=== PATIENT | male | born 1955 | race Caucasian/White ===

== ENCOUNTER 2024-04-01 17:02 | Inpatient (IN) | payer MEDICARE, SELFPAY ==
[2024-04-01 12:39] VITALS: BP 137/81
[2024-04-01] MEDS: OMNIPAQUE 50 ML PO (12:44)
--- NOTE | 2024-04-01 12:44 | ED.PDOC.TRB ---
ED Provider Triage
-
Patient seen by provider in Triage?: Seen in Triage
69-year-old male on no medications presents with 2 to 3 days worth of increased abdominal pain and distention. 2 prior hernia surgeries. No vomiting or fever. Is distended in triage and tender diffusely. Labs pending ordered CT with oral and IV
contrast secondary to patient's BMI. Bladder scan shows 35 to 45 mL
[2024-04-01 12:56] LABS: % Basophils 0.1 % (0-2); % Immature Granulocytes 0.3 % (0-0.5); % Lymphocytes 6.4 % (20.5-51.1); % Neutrophils 85.2 % (42.2-75.2); Absolute Immature Granulocytes 0.1 10^3/uL (0-0.05); Absolute Lymphocytes 1.1 10^3/uL (1.2-3.4); Absolute Monocytes 1.4 10^3/uL (0.1-0.6); Hematocrit 35.4 % (39.0-52.0); Hemoglobin 12.6 g/dL (13.0-18.0); Mean Corp Hgb Conc. 35.6 g/dL (33.0-37.0); Mean Corpuscular Hgb 30.4 pg (27.0-31.0); Mean Corpuscular Volume 85.5 fL (80.0-94.0); Mean Platelet Volume 9.6 fL (7.4-10.4); Nucleated Red Blood Cells % 0 % (-); Platelet Count 378 10^3/uL (130-400); Red Blood Cell Count 4.14 10^6/uL (4.70-6.10); Red Cell Dist. Width 13.2 % (11.5-14.5); White Blood Cell Count 17.6 10^3/uL (4.8-10.8)
[2024-04-01 13:13] LABS: ALT (SGPT) 35 U/L (0-50); AST (SGOT) 42 U/L (17-59); Alkaline Phosphatase 90 U/L (38-126); Blood Urea Nitrogen 26 mg/dl (9-20); Calcium 9.4 mg/dl (8.4-10.2); Carbon Dioxide 27 mmol/L (22-30); Chloride 80 mmol/L (98-107); Glucose 154 mg/dl (70-99); Lipase 39 U/L (23-300); Potassium 4.9 mmol/L (3.5-5.1); Sodium 120 mmol/L (135-145); Total Bilirubin 1.3 mg/dl (0.2-1.3); Total Protein 6.8 g/dl (6.3-8.2); eGFR > 60.00
[2024-04-01 13:19] VITALS: BMI 17.4
--- NOTE | 2024-04-01 13:32 | ED.GENMED ---
History of Present Illness
General
Chief Complaint: Abdominal Pain
Time Seen by Provider: 04/01/24 13:05
History of Present Illness
History of Present Illness:
Patient is a 61-year-old male with history of hernia, colitis presenting to the emergency department with abdominal pain and constipation. Patient states that for the past 4 days he has been having abdominal pain that is in the epigastric region.
He has not had a bowel movement for the past 4 days that has been normal. He did have a small bowel movement this morning. No fevers or chills. No chest pain. He has been having increased belching. Decreased p.o. Some nausea but no vomiting.
No diarrhea. No history of obstructions. He does state that earlier this week he did have cough congestion and had a similar symptoms of a cold.
Past History
Past History
ED Past Medical History: Other (Ulcerative colitis ); Negative Asthma, HTN, Hypercholesterolemia or NIDDM
ED Past Surgical History: Other (Hernia)
Social History
Tobacco: Former smoker
Alcohol: None
Personal:
Living: with family
Employment: Employed
Family History
Family History: Negative Early CAD
Phy Exam
Physical Exam
Physical Exam:
GENERAL: in no acute distress
HEENT: normocephalic, extraocular movements intact, moist oral mucosa
NECK: normal inspection
RESPIRATORY: no respiratory distress, clear to auscultation bilaterally
CARDIOVASCULAR: regular rate and rhythm
ABDOMEN/: soft, distended, diffusely tender but worse in the epigastric region no rebound or guarding
EXTREMITIES: non-tender, no edema/swelling
NEUROLOGIC: awake and alert, moves all extremities
SKIN: warm
Course
Orders/Labs/Results
Orders:
Orders
04/01/24 12:41
CT Abd/pel W Iv And Oral Contr Urgent
Comment:
Reason For Exam: abdominal pain, distention
Iohexol [Omnipaque] See Protocol PO NOW STA
04/01/24 12:42
Iohexol [Omnipaque] 50 ml .ROUTE .STK-MED ONE
04/01/24 12:48
Complete Blood Count/With Diff Urgent
Comprehensive Metabolic Panel Urgent
Lipase Urgent
04/01/24 13:18
CR Abdomen - 1 View Urgent
Comment:
Reason For Exam: upright xray, r/o free air
04/01/24 14:00
0.9% Sodium Chloride 500 ml [Nss] 500 ml IV 100 mls/hr
04/01/24 14:16
Osmolality, Random Urine Urgent
Date Specimen was Collected: 04/01/24
Time Specimen was Collected: 14:14
Urine Sodium Urgent
Date Specimen was Collected: 04/01/24
Time Specimen was Collected: 14:14
04/01/24 15:18
Ondansetron Injectable [Zofran] 4 mg IV NOW STA
04/01/24 17:47
Sodium Urgent
Abnormal Lab Results
04/01/24 04/01/24
12:48 14:16
WBC 17.6 H 10^3/uL
(4.8-10.8)
RBC 4.14 L 10^6/uL
(4.70-6.10)
Hgb 12.6 L g/dL
(13.0-18.0)
Hct 35.4 L %
(39.0-52.0)
Abs Immat Gran (auto) 0.1 H 10^3/uL
(0-0.05)
Absolute Neuts (auto) 15.0 H 10^3/uL
(1.4-6.5)
Absolute Lymphs (auto) 1.1 L 10^3/uL
(1.2-3.4)
Absolute Monos (auto) 1.4 H 10^3/uL
(0.1-0.6)
Neutrophils % 85.2 H %
(42.2-75.2)
Lymphocytes % 6.4 L %
(20.5-51.1)
Sodium 120 L mmol/L
(135-145)
Chloride 80 L mmol/L
(98-107)
BUN 26 H mg/dl
(9-20)
Glucose 154 H mg/dl
(70-99)
Urine Sodium < 5 L mmol/L
(30-90)
04/01/24 12:48
Vital Signs
Initial and Last Documented VS:
Initial Vital Signs
Temp Pulse Resp BP Pulse Ox
98.6 F 119 20 137/81 98
04/01/24 12:39 04/01/24 12:39 04/01/24 12:39 04/01/24 12:39 04/01/24 12:39
Last Documented Vital Signs
Temp Pulse Resp BP Pulse Ox
98.6 F 92 16 136/79 99
04/01/24 12:39 04/01/24 14:15 04/01/24 14:15 04/01/24 14:15 04/01/24 14:15
MDM/Problems Addressed
Differential Diagnosis Includes:
Patient is a 69-year-old male with history of hernia repair, colitis presenting to the emergency department with a few days of abdominal pain and constipation. Vitals are unremarkable and exam does show a distended abdomen that is diffusely tender
but worse in the epigastric region. I am concerned about a perforated viscus versus obstruction. Could be constipation versus viral etiology. Will obtain upright x-ray. Will obtain blood work and CT scan. Will give antiemetics. I did offer
pain control however patient would like to hold off at this time
*Critical Care Note
Total Time (30-74mins, 75-104mins- exclusive of procedures): Not Applicable
Update Note
Update Note:
CMP notable for hyponatremia. Likely from dehydration though patient does state that he has been trying to drink water though not enough with the symptoms. Will start normal saline at 100 mL/h. Discussed with nephrology who is in agreement as
well as recommending obtaining urine awesome and urine sodium. Blood work does show elevated white count. X-ray per my interpretation without free air though he does have signs of small bowel obstruction. Discussed with general surgery who would
like to obtain CT scan. Will admit to hospitalist given the hyponatremia.
ED Attending Note
-
Portions of this chart may have been created with voice recognition software.� Occasional wrong word or��sound alike� substitutions may have occurred due to the inherent limitations of voice recognition software.
Discharge Plan
Departure
Patient Disposition: Admit
Date of Disposition: 04/01/24
Time of Disposition: 15:13
Presentation/result/management discussed w/ accepting MD/DO: Hospitalist
Discharge Problem:
Small bowel obstruction
Prescriptions:
No Action
multivitamin 1 EACH tablet
1 ea PO DAILY
prednisone 20 MG tablet
10 mg PO BID
Interventions
Interventions:
*Risk Screen - Suicide Last Done: 04/01/24 13:19
*General Assessment Last Done: 04/01/24 13:19
*Neglect/Abuse Screening Last Done: 04/01/24 13:19
SX-Gpcchs-Nqhbwftafj Assessment Last Done: 04/01/24 13:19
Discharge Date and Time
Print Language: GIBRALTARIAN
[2024-04-01] MEDS: NSS 500 IV (13:49)
--- NOTE | 2024-04-01 14:11 | W.CON.NEPH ---
Addendum entered and electronically signed by Nidhi De Los Santos MD 04/01/24 15:49:
please edit -pt not on prednisone for UC
Original Note:
Consultation
-
Date/Time Consultation Requested: 04/01/24 1340
Date/Time Consultation Performed: 04/01/24 1430
Requesting Provider: Malcolm Hull
Performing Provider: Nidhi Luna
Reason for Consultation: hyponatremia
Medical History
-
Chief Complaint: Abd pain
History of Present Illness:
Patient is a 61-year-old male with history of U colitis with out medications, bilat I hernia surgeries presenting to the emergency department with abdominal pain and constipation. he normally has intermittent constipation and usually resolves with
laxatives. this time it did not despite using enema yesterday. he notes decreased food intake and lost 20lbs in last 2weeks. He reports of drinking lot of liquids for constipation. Has been having abdominal pain that is in the epigastric region for
same duration with out nausea or vomiting. He has not had a bowel movement for the past 4 days and not passing flatus. No fevers or chills. No chest pain or SOB. He has been having increased belching specially when he lays down.No history of
obstructions. For his UC not seen GI for a while. Abd Xray shows SBO and his sodium is 120. He started with NS by ER. He is awaiting for CT abd today.
Past Medical History
Ulcerative colitis
Past Surgical History: Other (hernia surgery)
Social History
Tobacco: Former Smoker
Alcohol: None
Personal:
Living: With Family
Employment: Retired (worked in [employer])
Family History
Family History: Not Pertinent
Allergies / Home Medications
Allergy/AdvReac Type Severity Reaction Status Date / Time
No Known Allergies Allergy Unverified 04/01/24 12:41
�Medication �Instructions �Recorded �Confirmed �Type
multivitamin 1 ea PO DAILY 01/12/10 01/12/10 History
prednisone 20 mg tablet 10 mg PO BID 01/12/10 01/12/10 History
Review of Systems
-
all complete 12 point ROS have been inquired and found negative other than stated in HPI
All other systems: Negative unless noted
Physical Exam
Vital Signs
Vital Signs
Temp Pulse Resp BP Pulse Ox
98.6 F 119 20 137/81 98
04/01/24 12:39 04/01/24 12:39 04/01/24 12:39 04/01/24 12:39 04/01/24 12:39
Lab Results
WBC 17.6 10^3/uL (4.8-10.8) H 04/01/24 12:48
RBC 4.14 10^6/uL (4.70-6.10) L 04/01/24 12:48
Hgb 12.6 g/dL (13.0-18.0) L 04/01/24 12:48
Hct 35.4 % (39.0-52.0) L 04/01/24 12:48
Plt Count 378 10^3/uL (130-400) 04/01/24 12:48
Potassium 4.9 mmol/L (3.5-5.1) 04/01/24 12:48
Chloride 80 mmol/L (98-107) L 04/01/24 12:48
Carbon Dioxide 27 mmol/L (22-30) 04/01/24 12:48
BUN 26 mg/dl (9-20) H 04/01/24 12:48
Creatinine 0.8 mg/dL (0.7-1.3) 04/01/24 12:48
eGFR > 60.00 04/01/24 12:48
Glucose 154 mg/dl (70-99) H 04/01/24 12:48
Calcium 9.4 mg/dl (8.4-10.2) 04/01/24 12:48
Albumin 4.0 g/dl (3.5-5.0) 04/01/24 12:48
abd Xray:
IMPRESSION:
Findings compatible with small bowel obstruction. No appreciable pneumoperitoneum.
Physical Exam
General: Awake, Alert, Oriented, AOx3, No Distress, Nontoxic and Other (cachetic)
HEENT: EOMI, Anicteric, Conjunctivae Clear, Neck Supple and No JVD
Respiratory: Clear, Normal Excursion and Nonlabored Respirations
Cardiac: S1/S2 and Regular Rate/Rhythm
Breast: Deferred by me
Abdomen: Soft, Nontender and Other (no BS, distended)
Musculoskeletal: No Cyanosis and No Edema
Skin: No Rash
Neuro: Nonfocal/Grossly Intact
Psych: Mood/afflect pleasant, Insight/judgement good and Appropriate
Data Reviewed
-
Radiology: Report Reviewed by me, Discussed with Patient and Discussed with Family
Labs: Labs Reviewed by me, Discussed with Patient and Discussed with Family
Assessment/Plan
-
IMp:
SBO
Hyponatremia
prerenal azotemia
Leucocytosis
Anemia
Ulcerative colitis on chr prednisone
Plan:
A/w abd pain and constipation noted SBO
hyponatremia seem euvolemic
suspect could have high ADH state from abd pain
check U osmo and U sodium
ok for isotonic fluids for now as he is NPO
would check sodium q4hr
check TSH in am
if sodium worsens likely switch to 3%
BP stable
Await for CT abd, has sig wt loss noted
d/w pt and at bedside
[2024-04-01 14:15] VITALS: BP 136/79
[2024-04-01 14:45] LABS: Osmolality Urine 866 mOsm/kg (300-900)
[2024-04-01 15:10] LABS: Urine Sodium < 5 mmol/L (30-90)
[2024-04-01] MEDS: ZOFRAN 4 MG IV (15:22)
--- NOTE | 2024-04-01 15:50 | EDRN ---
Ambulated to BR. BM: Reports small amount soft stool.
--- NOTE | 2024-04-01 16:53 | HPS.HSE ---
Family Physician
-
Family Physician: Chavo Peng
Chief Complaint
-
Abdominal pain and constipation
History of Present Illness
Patient presents with a 2 weeks of abdominal discomfort which was intermittent with coming and going. Since Friday he started to have continuous abdominal pain and started noticed some distention.
Nausea but no vomiting. He then started to become constipated and no bowel movement in 4 days.
Initial plain x-ray of the abdomen and subsequent abdomen pelvis raises a concern about a sigmoid mass may be causing bowel obstruction.
Patient says in his lifetime he had 4 colonoscopies and the last one was 2019. He had a polyp which was removed apparently then in 2019-? Pathology of the polyp.
He has no other acute medical conditions. He takes multivitamins but no disease specific medication.
Medical History
Past Medical History
Past Medical History: Reports Other (Colitis )
Past Surgical History: Reports Other (Bilateral inguinal hernia repair)
Social History
Tobacco: Non-smoker
Personal:
Living: With Family
Family History
Family History: Not pertinent
Allergies / Home Medications
Allergies reflects when Allergies were last updated in [facility].
Home Medications with original date entered in [facility]
Allergy/Medication List:
Allergies
Allergy/AdvReac Type Severity Reaction Status Date / Time
No Known Allergies Allergy Unverified 04/01/24 12:41
Home Medications
ascorbic acid (vitamin C) 500 mg tablet (Vitamin C) 500 mg PO DAILY 04/01/24
calcium carbonate (Calcium 600) 600 mg PO DAILY 04/01/24
cholecalciferol (vitamin D3) 25 mcg (1,000 unit) tablet (Vitamin D3) 25 mcg PO DAILY 04/01/24
cyanocobalamin (vitamin B-12) 1,000 mcg tablet 1,000 mcg PO DAILY 04/01/24
magnesium oxide 400 mg PO DAILY 04/01/24
vitamin K2 90 mcg capsule 90 mcg PO DAILY 04/01/24
zinc sulfate 50 mg zinc (220 mg) tablet 50 mg PO DAILY 04/01/24
Review of Systems
-
A 12 point ROS was completed and negative except as noted: Yes
Physical Exam
Vital Signs
Vital Signs
Temp Pulse Resp BP Pulse Ox
98.6 F 92 16 136/79 99
04/01/24 12:39 04/01/24 14:15 04/01/24 14:15 04/01/24 14:15 04/01/24 14:15
Physical Exam
General: No Apparent Distress
HEENT: Moist mucous membranes
Respiratory: Clear
Cardiac: S1/S2 and Irregular Rhythm; No Tachycardia
GI: Soft, Tender (Abdominal discomfort but no rebound guarding rigidity) and Distended; No Normal Bowel Sounds
Neuro: AO x 3
Laboratory Results
-
04/01/24 12:48
Laboratory Results
Total Bilirubin 1.3 mg/dl (0.2-1.3) 04/01/24 12:48
AST 42 U/L (17-59) 04/01/24 12:48
ALT 35 U/L (0-50) 04/01/24 12:48
Alkaline Phosphatase 90 U/L (38-126) 04/01/24 12:48
Lipase 39 U/L (23-300) 04/01/24 12:48
Data Reviewed
-
CT Scan: Report Reviewed by me (ct a/p)
Lab Data: Labs Reviewed by me
Impression/Plan
-
Small bowel obstruction with sigmoid mass-admit to hospital for further evaluation. Keep NPO. Start on IV fluids. Consult colorectal surgery. Hold oral medications.
Leukocytosis -afebrile and nontoxic. But with bowel obstruction rule out translocation. Check blood cultures. Start on empirical antibiotics pending culture data and progress.
2.8 superior right hepatic lobe lesion-with sigmoid mass raises concern for hepatic mets. Would require a initially biopsy of the sigmoid mass and then a PET scan as an outpatient.
Distal esophageal stricture wall thickening-patient without any upper GI symptoms. To consider GI eval again depending on initial testing and symptoms. There Is also moderate hiatus hernia in the distal esophagus raising concern of GERD or
esophageal dysmotility. Again patient without any upper GI symptoms.
Severe hyponatremia-suspect may be related to pain. Check urine lites. Appreciate nephrology input. Continue with the IV fluids and follow-up with repeat BMP in if any worse then consider hypertonic solution.
Full code
[2024-04-01 18:39] LABS: Sodium 118 mmol/L (135-145)
[2024-04-01 19:00] VITALS: BP 133/68; BMI 16.5
[2024-04-01] MEDS: SODIUM CHLORIDE 3% 500 IV (19:50)
[2024-04-01] MEDS: NSS IV ×2 (20:46)
[2024-04-01] MEDS: ROCEPHIN 1000 MG IV (20:52)
[2024-04-01] MEDS: LOVENOX 40 MG SC (20:52)
[2024-04-01] MEDS: STERILE WATER FOR INJECTION 10 ML IV (20:52)
[2024-04-01] MEDS: FLAGYL 500 MG 100 IV (20:52)
[2024-04-01 22:26] LABS: Blood Urea Nitrogen 26 mg/dl (9-20); Carbon Dioxide 25 mmol/L (22-30); Chloride 83 mmol/L (98-107); Estimated Creatinine Clearance 92 ml/min; Glucose 119 mg/dl (70-99); Potassium 4.4 mmol/L (3.5-5.1); Sodium 118 mmol/L (135-145); eGFR > 60.00
[2024-04-01 23:21] VITALS: BP 128/63
--- NOTE | 2024-04-01 23:39 | CON.CRS ---
Medical History
-
History of Present Illness:
Patient is a 69-year-old male, denies any PMH, who presents with significant bloating and abdominal pain for 2 days. This is never happened to him before. It started with the bloating and belching 2 days ago, and developed into severe dull
abdominal pain. He denies any nausea or vomiting, SOB/CP. His last BM was this morning, but he has not been passing flatus for few days. His last colonoscopy was in 2019 at [place], which she reports demonstrated 1 benign polyp. In the ED, his WBC
was 17.6, he was initially tachycardic, but improved with fluids, afebrile. A CT scan showed a sigmoid mask associated with large bowel obstruction as well as a 2.8 cm liver lesion. An NG tube was placed.
Past Medical History
Past Medical History: None and Other
Past Surgical History: Other (UHR x 2, with mesh)
Social History
Tobacco: Former Smoker (Quit 38 years ago)
Alcohol: None
Drug: None
Personal:
Living: With Family
Family History
Family History: Other (Denies family history of CRC)
Allergies / Home Medications
Allergy/AdvReac Type Severity Reaction Status Date / Time
No Known Allergies Allergy Unverified 04/01/24 12:41
�Medication �Instructions �Recorded �Confirmed �Type
ascorbic acid (vitamin C) 500 mg 500 mg PO DAILY 04/01/24 04/01/24 History
tablet (Vitamin C)
calcium carbonate (Calcium 600) 600 mg PO DAILY 04/01/24 04/01/24 History
cholecalciferol (vitamin D3) 25 25 mcg PO DAILY 04/01/24 04/01/24 History
mcg (1,000 unit) tablet (Vitamin
D3)
cyanocobalamin (vitamin B-12) 1,000 mcg PO DAILY 04/01/24 04/01/24 History
1,000 mcg tablet
magnesium oxide 400 mg PO DAILY 04/01/24 04/01/24 History
vitamin K2 90 mcg capsule 90 mcg PO DAILY 04/01/24 04/01/24 History
zinc sulfate 50 mg zinc (220 mg) 50 mg PO DAILY 04/01/24 04/01/24 History
tablet
Review of Systems
-
All other systems: Negative unless noted
A 10 point review of systems was completed, and was negative except as per HPI.
Physical Exam
Vital Signs
Temp 97.9 F 04/01/24 23:21
Pulse 98 04/01/24 23:21
Resp Rate 18 04/01/24 23:21
Blood pressure 128/63 04/01/24 23:21
SaO2 97 04/01/24 23:21
03/31/24 04/01/24 04/02/24
06:59 06:59 06:59
Actual Weight 55.026 kg
Body Mass Index (BMI) 16.5
Lab Results / Allergies
04/01/24 12:48
04/01/24 21:57
WBC 17.6 10^3/uL (4.8-10.8) H 04/01/24 12:48
Hgb 12.6 g/dL (13.0-18.0) L 04/01/24 12:48
Hct 35.4 % (39.0-52.0) L 04/01/24 12:48
Plt Count 378 10^3/uL (130-400) 04/01/24 12:48
Abs Immat Gran (auto) 0.1 10^3/uL (0-0.05) H 04/01/24 12:48
Neutrophils % 85.2 % (42.2-75.2) H 04/01/24 12:48
Allergy/AdvReac Type Severity Reaction Status Date / Time
No Known Allergies Allergy Unverified 04/01/24 12:41
Physical Exam
General: No Apparent Distress
HEENT: Normocephalic and Atraumatic
Respiratory: Non Labored Respirations
GI: Soft, Tender (Mildly tender to palpation periumbilically, no rebound or guarding) and Distended (Moderately distended and tympanic)
Skin: Warm and Dry
Neuro: AO x 3
Data Reviewed
-
CT Scan: Image Personally Visualized and interpreted, Discussed with Physician (Dr. Jeremy Garcia), Discussed with Patient and Discussed with Family
Labs: Labs Reviewed by me, Discussed with Patient and Discussed with Family
Assessment / Plan
-
69-year-old male, denies any PMH, who presents with significant bloating and abdominal pain for 2 days. This is never happened to him before. It started with the bloating and belching 2 days ago, and developed into severe dull abdominal pain. He
denies any nausea or vomiting, SOB/CP. His last BM was this morning, but he has not been passing flatus for few days. His last colonoscopy was in 2019 at [place], which she reports demonstrated 1 benign polyp. In the ED, his WBC was 17.6, he was
initially tachycardic, but improved with fluids, afebrile. A CT scan showed a sigmoid mask associated with large bowel obstruction as well as a 2.8 cm liver lesion. An NG tube was placed.
� Large bowel obstruction due to sigmoid mass, concerning for cancer; diffuse distention proximally up to the level of the stomach
� Hemodynamically stable without signs of peritonitis, no acute surgical intervention; discussed with Dr. Garcia for possible colonic stent placement tomorrow
� If colonic stent unable to be placed, patient will require surgery for diversion
� Had lengthy discussion with patient and patient's spouse regarding the pathophysiology of large bowel obstructions; explained the risk of possible perforation, which appears lower for him due to his incompetent ileocecal valve; explained the plan
for colonic stent versus surgery; additionally, explained the need for further workup of this colon mass as this is concerning for cancer; All questions were answered and the patient was agreeable to attempt at colonic stent with possible need for
surgery if unable to place
- Once large bowel obstruction addressed, patient will need tissue diagnosis of colon mass and staging CTs/CEA if cancer
� Continue NGT with IVF
� Pain control, minimize narcotics
� Okay for DVT PPx
� Appreciate GI consult for colonic stent, plan for tomorrow
� Appreciate hospitalist
--- NOTE | 2024-04-01 23:40 | PTCARENOTE ---
Pt received from ED via stretcher. Pivoted to bed w/assist without incident. Telemetry = SR w/PACs. AAOx3, flat. Admission and assessment completed. Oriented to surroundings and plan of care discussed. Critical Na+ communicated to NETWORK DIAGNOSTIC SUPPORT SPECIALIST covering
house, electronic orders received for hypertonic IVF. Infusing via #20 RFA without complication. Unable to verify NGT placement via auscultation, NGT advanced and placement verified. Flushed per order, connected to LIWS and immediately started
draining large amount of dark brown/green contents. Call daly within reach, plan of care ongoing.
[2024-04-02] VITALS (18 sets, daily range): BP systolic 111–138; BP diastolic 49–70; BMI 16.5
[2024-04-02 02:45] LABS: Blood Urea Nitrogen 24 mg/dl (9-20); Calcium 8.8 mg/dl (8.4-10.2); Carbon Dioxide 24 mmol/L (22-30); Chloride 86 mmol/L (98-107); Estimated Creatinine Clearance 79 ml/min; Glucose 116 mg/dl (70-99); Potassium 4.4 mmol/L (3.5-5.1); Sodium 124 mmol/L (135-145); eGFR > 60.00
[2024-04-02] MEDS: NSS 1000 IV ×2 (03:50→15:17)
[2024-04-02] MEDS: FLAGYL 500 MG 100 IV ×3 (03:50→22:00)
[2024-04-02 06:23] LABS: Hematocrit 31.7 % (39.0-52.0); Hemoglobin 11.4 g/dL (13.0-18.0); Mean Corpuscular Hgb 29.7 pg (27.0-31.0); Mean Corpuscular Volume 82.6 fL (80.0-94.0); Mean Platelet Volume 10.2 fL (7.4-10.4); Platelet Count 361 10^3/uL (130-400); Red Blood Cell Count 3.84 10^6/uL (4.70-6.10); Red Cell Dist. Width 13.2 % (11.5-14.5); White Blood Cell Count 5.9 10^3/uL (4.8-10.8)
[2024-04-02 06:53] LABS: Blood Urea Nitrogen 23 mg/dl (9-20); Calcium 8.8 mg/dl (8.4-10.2); Carbon Dioxide 28 mmol/L (22-30); Chloride 86 mmol/L (98-107); Estimated Creatinine Clearance 69 ml/min; Glucose 111 mg/dl (70-99); Potassium 4.3 mmol/L (3.5-5.1); Sodium 125 mmol/L (135-145); eGFR > 60.00
[2024-04-02 07:39] LABS: Hepatitis C Antibody Negative (Negative)
[2024-04-02 08:23] LABS: APTT 28.7 Sec (23.4-35.0); INR 1.22; PT 15.2 Sec (11.4-14.6)
--- NOTE | 2024-04-02 09:56 | CON.GI ---
Consultation
-
Date/Time Consultation Requested: 04/02/2024
Date/Time Consultation Performed: 04/02/2024
Requesting Provider: Jeffrey Zhao
Performing Provider: Jeremy Garcia
Reason for Consultation: colonic obstruction
Medical History
Chief Complaint / HPI
Chief Complaint: colonic obstruction
History of Present Illness:
Patient is a 69-year-old male w/ no significant hx who presents with obstipation and abdominal pain. He started having bloating and belching for past 2 days with associated severe dull abdominal pain. No vomiting. His last colonoscopy was in 2019
at [place], which she reports demonstrated [address] scan showed a sigmoid mass associated with large bowel obstruction as well as a 2.8 cm liver lesion. An NG tube was placed.
Past Medical History
Past Medical History: None
Past Surgical History: Other
Social History
Tobacco: Former Smoker
Alcohol: None
Family History
Family History: Reviewed & Not Pertinent
Allergies / Home Medications
Allergy/AdvReac Type Severity Reaction Status Date / Time
No Known Allergies Allergy Unverified 04/01/24 12:41
�Medication �Instructions �Recorded
ascorbic acid (vitamin C) 500 mg 500 mg PO DAILY Supplement 04/01/24
tablet (Vitamin C)
calcium carbonate (Calcium 600) 600 mg PO DAILY Supplement 04/01/24
cholecalciferol (vitamin D3) 25 25 mcg PO DAILY Supplement 04/01/24
mcg (1,000 unit) tablet (Vitamin
D3)
cyanocobalamin (vitamin B-12) 1,000 mcg PO DAILY Supplement 04/01/24
1,000 mcg tablet
magnesium oxide 400 mg PO DAILY Supplement 04/01/24
vitamin K2 90 mcg capsule 90 mcg PO DAILY Supplement 04/01/24
zinc sulfate 50 mg zinc (220 mg) 50 mg PO DAILY Supplement 04/01/24
tablet
Review of Systems
Vital Signs
Temp Pulse Resp BP Pulse Ox
97.5 F 105 19 138/68 99
04/02/24 07:30 04/02/24 07:30 04/02/24 07:30 04/02/24 07:30 04/02/24 07:45
Physical Exam
Exam
General: Well Developed and Well Nourished
HEENT: Normocephalic
Respiratory: Clear
Cardiac: S1/S2
GI: Soft, Tender and Distended
Results
WBC 5.9 10^3/uL (4.8-10.8) 04/02/24 06:01
Hgb 11.4 g/dL (13.0-18.0) L 04/02/24 06:01
Hct 31.7 % (39.0-52.0) L 04/02/24 06:01
MCV 82.6 fL (80.0-94.0) 04/02/24 06:01
Plt Count 361 10^3/uL (130-400) 04/02/24 06:01
Absolute Neuts (auto) 15.0 10^3/uL (1.4-6.5) H 04/01/24 12:48
PT 15.2 Sec (11.4-14.6) H 04/02/24 07:54
INR 1.22 04/02/24 07:54
APTT 28.7 Sec (23.4-35.0) 04/02/24 07:54
Sodium 125 mmol/L (135-145) L 04/02/24 06:01
Potassium 4.3 mmol/L (3.5-5.1) 04/02/24 06:01
Chloride 86 mmol/L (98-107) L 04/02/24 06:01
Carbon Dioxide 28 mmol/L (22-30) 04/02/24 06:01
BUN 23 mg/dl (9-20) H 04/02/24 06:01
Creatinine 0.8 mg/dL (0.7-1.3) 08/30/24 06:01
Calcium 8.8 mg/dl (8.4-10.2) 04/02/24 06:01
Total Bilirubin 1.3 mg/dl (0.2-1.3) 04/01/24 12:48
AST 42 U/L (17-59) 04/01/24 12:48
ALT 35 U/L (0-50) 04/01/24 12:48
Alkaline Phosphatase 90 U/L (38-126) 04/01/24 12:48
Lipase 39 U/L (23-300) 04/01/24 12:48
Hepatitis C Antibody Negative (Negative) 04/02/24 06:01
Diagnostic Image Results:
Prior GI Procedures:
EGD:
Colonoscopy:
Assessment / Plan
-
Patient is a 69-year-old male w/ no significant hx who presents with obstipation and abdominal pain. CT scan showed a sigmoid mass associated with large bowel obstruction as well as a 2.8 cm liver lesion. An NG tube was placed.
Impression / Rec:
1. Colonic obstruction - p/w obstipation and CT shows obstructing mass in sigmoid colon with upstream dilation in small bowel. Pt has significant electrolyte derangement with hyponatremia of 118 on admission, which has improved to 125 this am.
Given the urgency of decompression, will proceed with colonoscopy and stent placement for decompression.
Total Time Spent with Patient (in minutes): 55
-
-
Thank you for consultation and allowing me to participate in the patient's care. Please call the restoration technician GI physician during the after hours with any questions or concerns.
--- NOTE | 2024-04-02 10:01 | WOUNDNOTE ---
[facility] RN NOTE: Patient visited for stoma siting. Reviewed chart and spoke to patient. He said he has lost about 20 lbs in 2 weeks. His abdomen is firm, showing no creases when laying or sitting. The rectus muscle was identified and patient was marked
x4 quadrants. Patient made aware that pouching issues may occur as topography of abdomen is likely to change after surgery. Patient also made aware that surgeon will make final determination of ostomy placement. All questions answered. Will follow
up with patient if ostomy is created.
--- NOTE | 2024-04-02 10:09 | W.PN.CRS1 ---
Today's Communication / Plan
-
npo
possible colonic stent by Dr. Jeremy Garcia today
if unable to place stent, will require OR
wound marking
Assessment/Plan
-
69-year-old male, denies any PMH, who presents with significant bloating and abdominal pain for 2 days. This is never happened to him before. It started with the bloating and belching 2 days ago, and developed into severe dull abdominal pain. He
denies any nausea or vomiting, SOB/CP. His last BM was this morning, but he has not been passing flatus for few days. His last colonoscopy was in 2019 at [place], which she reports demonstrated 1 benign polyp. In the ED, his WBC was 17.6, he was
initially tachycardic, but improved with fluids, afebrile. A CT scan showed a sigmoid mask associated with large bowel obstruction as well as a 2.8 cm liver lesion. An NG tube was placed.
� Large bowel obstruction due to sigmoid mass, concerning for cancer; diffuse distention proximally up to the level of the stomach
� Stent placement by Dr. Jeremy Garcia this morning, discussed with him regarding procedure
� If colonic stent unable to be placed, patient will require surgery for diversion - has been consented this AM
- CEA if proves to be cancer
� Continue NGT with IVF
� Pain control, minimize narcotics
� Okay for DVT PPx
- Wound RN consulted for stoma marking if he should require OR
Subjective Data
Subjective Data
Date of Service: April 02, 2024
Patient states he is not in a lot of pain. He has been losing weight. He denies nausea or vomiting.
Objective Data
-
Vital Signs
Temp Pulse Resp BP Pulse Ox
97.5 F 105 19 138/68 99
04/02/24 07:30 04/02/24 07:30 04/02/24 07:30 04/02/24 07:30 04/02/24 07:45
Intake & Output
04/01/24 04/02/24 04/03/24
06:59 06:59 06:59
Intake Total 775 / 775
Output Total 2500 / 2500
Balance -1725 / -1725
Intake:
IV fluids (Total) 545 / 545
IV piggybacks 200 / 200
Amount instilled into GI Tube (
Total)
[place] Sump
Output:
Gastrointestinal tube output ( 1899 / 1899
Total)
[place] Sump 1900 / 1900
Urine, Voided 600 / 600
Lab Results
04/02/24 06:01
04/02/24 06:01
Physical Exam
-
General: No Acute Distress and AOx3
Abdomen: Soft, Distended and Tender (mildly tender around umbilicus)
Skin: Warm and Dry
--- NOTE | 2024-04-02 15:58 | CM ---
Pt admitted for small bowel obstruction
Met with pt and his at bedside
Pt reports he lives with his in a ranch style home. One step to enter
Independent at baseline, drives
DME - none
SNF/HH - denies past hx.
Has ride home at discharge
PCP - Dr Seth Peng
Pharm - [facility]
Plan anticipate home no needs vs w/VN
[2024-04-02] MEDS: SODIUM CHLORIDE 3% 250 IV (16:50)
--- NOTE | 2024-04-02 17:58 | W.PN.HOSP.TC ---
Today's Communication/Plan
-
Diet per colorectal surgery
Currently n.p.o. with IV fluids
3% saline
Follow sodium
DC Antibiotics-? If okay with GI
Assessment / Plan
Assessment / Plan
69-year-old man With abdominal pain and constipation.
CT of the abdomen and pelvis-sigmoid mass with resultant bowel obstruction. 2.8 cm low-density lesion in the superior right hepatic lobe suspicious for hepatic metastasis. Perisigmoid nodularity-regional yomaira metastasis versus metastatic soft
tissue deposits. Small volume abdominopelvic ascites. Moderate hiatal hernia with contrast in the distal esophagus-either GERD or dysmotility. Circumferential wall thickening of the distal esophagus.
CVS: S1-S2 normal
Chest: CTA B/L
Abdomen: Soft, NT, high pitched Bowel sounds present
Extremities: No edema
# Small bowel obstruction with sigmoid mass
His last colonoscopy was in 2018 at [place]
NGT
Status post colonoscopy by Dr. Garcia-stricture in the sigmoid-biopsied and stent placed
Currently on ceftriaxone and Flagyl-can be stopped if okay with GI
Pain control
Had bowel movements now
Advancement of diet - defer to GI
# 2.8 cm superior right hepatic lobe lesion-possible metastatic lesion.
# Distal esophageal stricture/wall thickening
# Severe hyponatremia
Check serum osmolality, serum TSH and cortisol level
Urine osmolality noted high, sodium low
Sodium better 3% saline to be continued
Nephrology evaluation appreciated
# History of ulcerative colitis- Last colonoscopy was in 2019. Stopped following up at [place] as it was too far.
Discussed about the importance of colonoscopy in IBD .
# 20 lb weight loss
# Ex-smoker
# Full code
D/W at bed side
Anticipated Discharge: 24 - 48 hours
Subjective/Interval History
-
Date of Service: April 02, 2024
Objective Data
-
Labs:
Laboratory Results
04/02/24 04/02/24 04/02/24
06:01 07:54 21:00
WBC 5.9
Hgb 11.4 L
Hct 31.7 L
Plt Count 361
PT 15.2 H
INR 1.22
APTT 28.7
Sodium 125 L Pending
Potassium 4.3 Pending
Chloride 86 L Pending
Carbon Dioxide 28 Pending
BUN 23 H Pending
Creatinine 0.8 Pending
Glucose 111 H Pending
Calcium 8.8 Pending
Vital Signs:
Vital Signs
Temp Pulse Resp BP Pulse Ox
98.7 F 111 18 111/65 97
04/02/24 17:15 04/02/24 17:15 04/02/24 17:15 04/02/24 17:15 04/02/24 17:15
I&O
04/01/24 04/02/24 04/03/24
06:59 06:59 06:59
Intake Total 775 / 775
Output Total 2500 / 2500 150 / 150
Balance -1725 / -1725 -120 / -120
[2024-04-02 18:33] LABS: Osmolality Serum 262 mOsm/kg (275-300)
[2024-04-02 19:10] LABS: Cortisol, Random 38.1 ug/dl; TSH 1.04 uIU/ml (0.47-4.68)
[2024-04-02] MEDS: ROCEPHIN 1000 MG IV (22:01)
[2024-04-02] MEDS: STERILE WATER FOR INJECTION 10 ML IV (22:01)
[2024-04-02 22:18] LABS: Blood Urea Nitrogen 22 mg/dl (9-20); Calcium 8.7 mg/dl (8.4-10.2); Carbon Dioxide 29 mmol/L (22-30); Chloride 90 mmol/L (98-107); Estimated Creatinine Clearance 79 ml/min; Glucose 83 mg/dl (70-99); Potassium 3.6 mmol/L (3.5-5.1); Sodium 129 mmol/L (135-145); eGFR > 60.00
[2024-04-03 03:38] VITALS: BP 114/63
[2024-04-03] MEDS: FLAGYL 500 MG 100 IV ×3 (03:58→20:49)
[2024-04-03 08:00] VITALS: BP 120/70
--- NOTE | 2024-04-03 08:17 | W.PN.NEPH.PH ---
Today's Communication / Plan
-
3%
Assessment/Plan
-
IMp:
SBO
Hyponatremia
prerenal azotemia
Leucocytosis
Anemia
Ulcerative colitis on chr prednisone
Plan:
3%NaCl again today
serial BMP
await biopsy path
-
-
Date of Service: April 02, 2024
CC / HPI / ROS
-
Chief Complaint:
hyponatremia
History of Present Illness:
Na 129 today
s/p scope with stent/biopsy
BP stable
Review of Systems:
no CP/SOB
Labs
-
Labs:
eGFR > 60.00 04/02/24 21:55
Albumin 4.0 g/dl (3.5-5.0) 04/01/24 12:48
Physical Exam
-
Vital Signs:
Vital Signs
Temp Pulse Resp BP Pulse Ox
Selected Entries
04/03/24
03:38
Temp 98.4 F
Pulse 85
Resp Rate 17
Blood pressure 114/63
Cardiovascular:: Regular rate and rhythm
Respiratory:: Bilateral: Coarse
Lung Excursion:: Normal
Abdomen:: Nontender and Soft
Bowel Sounds:: Normal
Extremity Edema:: None: Bilateral:
[2024-04-03 09:26] LABS: Hematocrit 32.3 % (39.0-52.0); Hemoglobin 11.2 g/dL (13.0-18.0); Mean Corp Hgb Conc. 34.7 g/dL (33.0-37.0); Mean Corpuscular Hgb 30.2 pg (27.0-31.0); Mean Corpuscular Volume 87.1 fL (80.0-94.0); Mean Platelet Volume 10.6 fL (7.4-10.4); Platelet Count 361 10^3/uL (130-400); Red Blood Cell Count 3.71 10^6/uL (4.70-6.10); Red Cell Dist. Width 14.1 % (11.5-14.5); White Blood Cell Count 9.1 10^3/uL (4.8-10.8)
[2024-04-03 09:45] LABS: Blood Urea Nitrogen 24 mg/dl (9-20); Carbon Dioxide 27 mmol/L (22-30); Chloride 91 mmol/L (98-107); Estimated Creatinine Clearance 69 ml/min; Glucose 72 mg/dl (70-99); Potassium 3.6 mmol/L (3.5-5.1); Sodium 134 mmol/L (135-145); eGFR > 60.00
[2024-04-03 11:00] VITALS: BP 117/61
--- NOTE | 2024-04-03 12:47 | W.PN.GI.CBS2 ---
Today's Communication / Plan
-
NGT clamp trial, start CLD.
Assessment / Plan
-
Patient is a 69-year-old male w/ no significant hx who presents with obstipation and abdominal pain. CT scan showed a sigmoid mass associated with large bowel obstruction as well as a 2.8 cm liver lesion. An NG tube was placed.
Impression / Rec:
1. Colonic obstruction - p/w obstipation and CT shows obstructing mass in sigmoid colon with upstream dilation in small bowel. Pt has significant electrolyte derangement with hyponatremia of 118 on admission, which has improved to 125 this am.
Given the urgency of decompression, will proceed with colonoscopy and stent placement for decompression.
Patient had colonic stent placed yesterday. Bx taken but appeared malignant obstruction. Had multiple BMs overnight. He feels much better and his abdomen feels less tense. Hyponatremia improved to sodium of 134. At this point, would recommend
clamping his NG tube and start clear liquid diet. If tolerates and no vomiting occurs then NG tube can be removed tomorrow with gradual advancement of diet. GI will s/o, defer to colorectal surgery for further care.
Total Time Spent with Patient (in minutes): 35
Subjective
Subjective
Date of Service: April 03, 2024
Had Multiple BMs o/n.
Objective
Data Reviewed
Laboratory Data:
Laboratory Results
04/03/24 08:46
04/03/24 08:46
Laboratory Results
PT 15.2 Sec (11.4-14.6) H 04/02/24 07:54
INR 1.22 04/02/24 07:54
APTT 28.7 Sec (23.4-35.0) 04/02/24 07:54
Total Bilirubin 1.3 mg/dl (0.2-1.3) 04/01/24 12:48
AST 42 U/L (17-59) 04/01/24 12:48
ALT 35 U/L (0-50) 04/01/24 12:48
Alkaline Phosphatase 90 U/L (38-126) 04/01/24 12:48
Lipase 39 U/L (23-300) 04/01/24 12:48
Vital Signs and I&O:
Vital Signs
Temp Pulse Resp BP Pulse Ox
98.2 F 103 17 120/70 97
04/03/24 08:00 04/03/24 08:00 04/03/24 08:00 04/03/24 08:00 04/03/24 08:00
I&O
04/02/24 04/03/24 04/04/24
06:59 06:59 06:59
Intake Total 775 / 775 90 / 90 60 / 60
Output Total 2500 / 2500 750 / 750 450 / 450
Balance -1725 / -1725 -660 / -660 -390 / -390
[2024-04-03] MEDS: D5/0.9% SODIUM CHLORIDE 1000 IV (14:38)
--- NOTE | 2024-04-03 14:50 | W.PN.GS2 ---
Addendum entered and electronically signed by Gurpreet Kruger MD 04/03/24 15:02:
I saw and examined the patient.
The [employer]'s note was reviewed and I agree with the note.
Comment: Improved after stent with passage of flatus and BMs. Remains mildly softly distended, belly is nt. NGT with 1200cc out but taking sips and chips. Will proceed with ngt clamp trial.
Original Note:
Today's Communication / Plan
-
Clamp trial of ngt
Assessment / Plan
-
69 yo male presenting with LBO with CT demonstrating a sigmoid mass with 2.8 cm liver lesion now PPD #1 colonoscopy with stent placement and biopsy of what appeared to be a malignant obstruction (path pending). Passing stools with improvement in
symptoms since procedure.
AFVSS
Leukocytosis resolved
Hyponatremia improved
+BM's/flatus passing now
--Clamp trial as per GI with CLD
--Check CEA
Options going forward may include interval resection of primary vs (more likely) liver biopsy by IR followed by chemotherapy pending patient course
Subjective Data
-
Date of Service: April 03, 2024
Patient seen and examined at bedside with Dr. Kruger. Denies n/v. Pain and bloating improved since procedure yesterday. Passing stools/flatus.
Objective Data
-
Intake and Output
04/02/24 04/03/24 04/04/24
06:59 06:59 06:59
Intake Total 775 / 775 90 / 90 60 / 60
Output Total 2500 / 2500 750 / 750 450 / 450
Balance -1725 / -1725 -660 / -660 -390 / -390
Intake:
Oral fluids 0 / 0
IV fluids (Total) 545 / 545
IV piggybacks 200 / 200
Amount instilled into GI Tube ( 30 / 30 90 / 90 60 / 60
Total)
[place] Sump 90 / 90 60 / 60
Output:
Gastrointestinal tube output ( 1900 / 1900 750 / 750 450 / 450
Total)
[place] Sump 1900 / 1900 750 / 750 450 / 450
Urine, Voided 600 / 600
Other:
Number of approximated MODERATE 2
amounts of urine
Vital Signs
Temp Pulse Resp BP Pulse Ox
98.2 F 85 18 117/61 97
04/03/24 11:00 04/03/24 11:00 04/03/24 11:00 04/03/24 11:00 04/03/24 11:00
Lab Results
04/03/24 08:46
04/03/24 08:46
Calcium 9.0 mg/dl (8.4-10.2) 04/03/24 08:46
Total Bilirubin 1.3 mg/dl (0.2-1.3) 04/01/24 12:48
AST 42 U/L (17-59) 04/01/24 12:48
ALT 35 U/L (0-50) 04/01/24 12:48
Alkaline Phosphatase 90 U/L (38-126) 04/01/24 12:48
Total Protein 6.8 g/dl (6.3-8.2) 04/01/24 12:48
Albumin 4.0 g/dl (3.5-5.0) 04/01/24 12:48
Physical Exam
-
NAD
ABD softly distended, NT, NGT with light brown outputs
[2024-04-03 15:00] VITALS: BP 135/72
--- NOTE | 2024-04-03 15:04 | W.PN.HOSP.TC ---
Today's Communication/Plan
-
clears
Assessment / Plan
Assessment / Plan
69-year-old man With abdominal pain and constipation.
CT of the abdomen and pelvis-sigmoid mass with resultant bowel obstruction. 2.8 cm low-density lesion in the superior right hepatic lobe suspicious for hepatic metastasis. Perisigmoid nodularity-regional yomaira metastasis versus metastatic soft
tissue deposits. Small volume abdominopelvic ascites. Moderate hiatal hernia with contrast in the distal esophagus-either GERD or dysmotility. Circumferential wall thickening of the distal esophagus.
CVS: S1-S2 normal
Chest: CTA B/L
Abdomen: Soft, NT, high pitched Bowel sounds present
Extremities: No edema
# Small bowel obstruction with sigmoid mass
His last colonoscopy was in 2018 at [place]
NGT clamped
Status post colonoscopy by Dr. Garcia-stricture in the sigmoid-biopsied and stent placed
Currently on ceftriaxone and Flagyl-can be stopped if okay with GI
Pain control
Has bowel movements now
Advancement of diet - defer tosurgeon
# 2.8 cm superior right hepatic lobe lesion-possible metastatic lesion.
# Distal esophageal stricture/wall thickening
# Severe hyponatremia
Check serum osmolality, Normal TSH and cortisol level
Urine osmolality noted high, sodium low
Sodium better with 3% saline
Nephrology evaluation appreciated
# History of ulcerative colitis- Last colonoscopy was in 2019. Stopped following up at [place] as it was too far.
Discussed about the importance of colonoscopy in IBD .
# 20 lb weight loss
# Ex-smoker
# Full code
D/W at bed side
D/W GI
Anticipated Discharge: Within 24 hours
Subjective/Interval History
-
Date of Service: April 03, 2024
Objective Data
-
Labs:
Laboratory Results
04/03/24
08:46
WBC 9.1
Hgb 11.2 L
Hct 32.3 L
Plt Count 361
Sodium 134 L
Potassium 3.6
Chloride 91 L
Carbon Dioxide 27
BUN 24 H
Creatinine 0.8
Glucose 72
Calcium 9.0
Vital Signs:
Vital Signs
Temp Pulse Resp BP Pulse Ox
98.2 F 85 18 117/61 97
04/03/24 11:00 04/03/24 11:00 04/03/24 11:00 04/03/24 11:00 04/03/24 11:00
I&O
04/02/24 04/03/24 04/04/24
06:59 06:59 06:59
Intake Total 775 / 775 90 / 90 60 / 60
Output Total 2500 / 2500 750 / 750 450 / 450
Balance -1725 / -1725 -660 / -660 -390 / -390
--- NOTE | 2024-04-03 16:27 | PTCARENOTE ---
NGT ordered to be clamped. NGT clamped and pt placed on clear liquid diet. So far pt is tolerating very well. PT denies any pain, increased nausea, distention or abdominal pain. is at bedside. IVF hung and infusing without any difficulty.
Telemetry was renewed. HR bursts upt . 120 at times. Pt denies any CP SOB or palpitations
[2024-04-03 19:44] VITALS: BP 125/75
[2024-04-03] MEDS: ROCEPHIN 1000 MG IV (20:49)
[2024-04-03] MEDS: STERILE WATER FOR INJECTION 10 ML IV (20:49)
[2024-04-03 23:50] VITALS: BP 118/69
[2024-04-04 03:30] VITALS: BP 124/69
[2024-04-04] MEDS: D5/0.9% SODIUM CHLORIDE 1000 IV ×2 (04:34→17:50)
[2024-04-04] MEDS: FLAGYL 500 MG 100 IV ×3 (04:35→20:40)
[2024-04-04 07:26] LABS: Hematocrit 29.8 % (39.0-52.0); Hemoglobin 10.2 g/dL (13.0-18.0); Mean Corp Hgb Conc. 34.2 g/dL (33.0-37.0); Mean Corpuscular Hgb 29.5 pg (27.0-31.0); Mean Corpuscular Volume 86.1 fL (80.0-94.0); Mean Platelet Volume 10.6 fL (7.4-10.4); Platelet Count 338 10^3/uL (130-400); Red Blood Cell Count 3.46 10^6/uL (4.70-6.10); Red Cell Dist. Width 14.2 % (11.5-14.5); White Blood Cell Count 10.6 10^3/uL (4.8-10.8)
[2024-04-04 08:00] VITALS: BP 116/68
[2024-04-04 08:01] LABS: Blood Urea Nitrogen 17 mg/dl (9-20); Calcium 8.5 mg/dl (8.4-10.2); Carbon Dioxide 31 mmol/L (22-30); Chloride 95 mmol/L (98-107); Estimated Creatinine Clearance 92 ml/min; Glucose 87 mg/dl (70-99); Potassium 3.3 mmol/L (3.5-5.1); Sodium 136 mmol/L (135-145); eGFR > 60.00
[2024-04-04 08:45] LABS: Magnesium 2.1 mg/dl (1.6-2.3)
[2024-04-04] MEDS: KCL 160 MEQ IV (10:13)
[2024-04-04 11:31] VITALS: BP 112/62
--- NOTE | 2024-04-04 11:43 | W.PN.GS2 ---
Addendum entered and electronically signed by Gurpreet Kruger MD 04/04/24 13:53:
I saw and examined the patient.
The [employer]'s note was reviewed and I agree with the note.
Comment: Passed clamp trial, no n/v. Ab exam with mild soft distention, nt. Will dc NGT, adv to fld
Original Note:
Today's Communication / Plan
-
Advance to FLD
Assessment / Plan
-
69 yo male presenting with LBO with CT demonstrating a sigmoid mass with 2.8 cm liver lesion now PPD #2 colonoscopy with stent placement and biopsy of what appeared to be a malignant obstruction (path pending). Passing stools with improvement in
symptoms since procedure.
AFVSS
Leukocytosis resolved
Hyponatremia resolved, hypokalemia today
CEA pending
+BM's/flatus, tolerating NGT clamp trial
--D/C NGT
--Advance to FLD
Options going forward may include interval resection of primary vs (more likely) liver biopsy by IR followed by chemotherapy pending patient course
Subjective Data
-
Date of Service: April 04, 2024
Patient seen and examined at bedside. Denies n/v. Tolerated clears around clamped NGT. Passing flatus. Denies pain.
Objective Data
-
Intake and Output
04/03/24 04/04/24 04/05/24
06:59 06:59 06:59
Intake Total 90 / 90 2620 / 2620
Output Total 750 / 750 750 / 750
Balance -660 / -660 1870 / 1870
Intake:
Oral fluids 0 / 0 1140 / 1140
IV fluids (Total) 1220 / 1220
IV piggybacks 200 / 200
Amount instilled into GI Tube ( 90 / 90 60 / 60
Total)
[place] Sump 90 / 90 60 / 60
Output:
Gastrointestinal tube output ( 750 / 750 750 / 750
Total)
[place] Sump 750 / 750 750 / 750
Other:
Number of approximated MODERATE 2 1
amounts of urine
Vital Signs
Temp Pulse Resp BP Pulse Ox
97.9 F 76 18 116/68 97
04/04/24 08:00 04/04/24 08:00 04/04/24 08:00 04/04/24 08:00 04/04/24 08:00
Lab Results
04/04/24 05:53
04/04/24 05:53
Calcium 8.5 mg/dl (8.4-10.2) 04/04/24 05:53
Magnesium 2.1 mg/dl (1.6-2.3) 04/04/24 05:53
Total Bilirubin 1.3 mg/dl (0.2-1.3) 04/01/24 12:48
AST 42 U/L (17-59) 04/01/24 12:48
ALT 35 U/L (0-50) 04/01/24 12:48
Alkaline Phosphatase 90 U/L (38-126) 04/01/24 12:48
Total Protein 6.8 g/dl (6.3-8.2) 04/01/24 12:48
Albumin 4.0 g/dl (3.5-5.0) 04/01/24 12:48
Physical Exam
-
NAD
ABD softly distended, NT, NGT clamped (removed)
--- NOTE | 2024-04-04 12:39 | W.PN.HOSP.TC ---
Today's Communication/Plan
-
Full Liquids
Ensure ordered pls make sure patient takes it
NGT out
Assessment / Plan
Assessment / Plan
69-year-old man With abdominal pain and constipation.
CT of the abdomen and pelvis-sigmoid mass with resultant bowel obstruction. 2.8 cm low-density lesion in the superior right hepatic lobe suspicious for hepatic metastasis. Perisigmoid nodularity-regional yomaira metastasis versus metastatic soft
tissue deposits. Small volume abdominopelvic ascites. Moderate hiatal hernia with contrast in the distal esophagus-either GERD or dysmotility. Circumferential wall thickening of the distal esophagus.
CVS: S1-S2 normal
Chest: CTA B/L
Abdomen: Soft, NT
Extremities: No edema
# Small bowel obstruction with sigmoid mass
His last colonoscopy was in 2019 at [place]
NGT out today
Status post colonoscopy by Dr. Garcia-stricture in the sigmoid-biopsied and stent placed 04/02/2024
Currently on ceftriaxone and Flagyl-can be stopped if okay with GI
Pain control
Has bowel movements now
Advancement of diet -to full liquid diet today
Ensure ordered
# Hypokalemia-replace
# 2.8 cm superior right hepatic lobe lesion-possible metastatic lesion.
# Distal esophageal stricture/wall thickening-needs endoscopy at some point
# Severe hyponatremia
Secondary to prerenal causes
Sodium better with 3% saline
Currently on D5 normal saline. Sodium has normalized
Nephrology evaluation appreciated
# History of ulcerative colitis- Last colonoscopy was in 2019. Stopped following up at [place] as it was too far.
Discussed about the importance of colonoscopy in IBD .
# 20 lb weight loss
# Ex-smoker
# Full code
D/W at bed side
Anticipated Discharge: 24 - 48 hours
Subjective/Interval History
-
Date of Service: April 04, 2024
Objective Data
-
Labs:
Laboratory Results
04/04/24
05:53
WBC 10.6
Hgb 10.2 L
Hct 29.8 L
Plt Count 338
Sodium 136
Potassium 3.3 L
Chloride 95 L
Carbon Dioxide 31 H
BUN 17
Creatinine 0.6 L
Glucose 87
Calcium 8.5
Vital Signs:
Vital Signs
Temp Pulse Resp BP Pulse Ox
97.9 F 76 18 116/68 97
04/04/24 08:00 04/04/24 08:00 04/04/24 08:00 04/04/24 08:00 04/04/24 08:00
I&O
04/03/24 04/04/24 04/05/24
06:59 06:59 06:59
Intake Total 90 / 90 2620 / 2620
Output Total 750 / 750 750 / 750
Balance -660 / -660 1870 / 1870
--- NOTE | 2024-04-04 12:46 | W.PN.NEPH.PH ---
Today's Communication / Plan
-
Follow BMP
No more 3% or IV fluids as diet being advanced to full liquid
Assessment/Plan
-
IMp:
SBO
Hyponatremia
prerenal azotemia
Leucocytosis
Anemia
Ulcerative colitis on chr prednisone
Plan:
Sodium corrected following 3% administration
Diet advanced to full liquid
serial BMP
await biopsy path
-
-
Date of Service: April 04, 2024
CC / HPI / ROS
-
Chief Complaint:
hyponatremia
History of Present Illness:
Na 136 today
s/p scope with stent/biopsy
BP stable
Review of Systems:
no CP/SOB
Labs
-
Labs:
WBC 10.6 10^3/uL (4.8-10.8) 04/04/24 05:53
RBC 3.46 10^6/uL (4.70-6.10) L 04/04/24 05:53
Hgb 10.2 g/dL (13.0-18.0) L 04/04/24 05:53
Hct 29.8 % (39.0-52.0) L 04/04/24 05:53
Plt Count 338 10^3/uL (130-400) 04/04/24 05:53
Sodium 136 mmol/L (135-145) 04/04/24 05:53
Potassium 3.3 mmol/L (3.5-5.1) L 04/04/24 05:53
Chloride 95 mmol/L (98-107) L 04/04/24 05:53
Carbon Dioxide 31 mmol/L (22-30) H 04/04/24 05:53
BUN 17 mg/dl (9-20) 04/04/24 05:53
Creatinine 0.6 mg/dL (0.7-1.3) L 04/04/24 05:53
eGFR > 60.00 04/04/24 05:53
Glucose 87 mg/dl (70-99) 04/04/24 05:53
Calcium 8.5 mg/dl (8.4-10.2) 04/04/24 05:53
Albumin 4.0 g/dl (3.5-5.0) 04/01/24 12:48
Physical Exam
-
Vital Signs:
Vital Signs
Temp Pulse Resp BP Pulse Ox
97.9 F 76 18 116/68 97
04/04/24 08:00 04/04/24 08:00 04/04/24 08:00 04/04/24 08:00 04/04/24 08:00
Cardiovascular:: Regular rate and rhythm
Respiratory:: Bilateral: Coarse
Lung Excursion:: Normal
Abdomen:: Nontender and Soft
Bowel Sounds:: Normal
Extremity Edema:: None: Bilateral:
[2024-04-04 13:16] LABS: Iron 57 ug/dl (49-181)
[2024-04-04 13:26] LABS: Percent Saturation 31 % (20-50); Total Iron Binding Capacity 180 ug/dl (261-462)
--- NOTE | 2024-04-04 13:56 | PTCARENOTE ---
Came into room and NGT was removed by . diet advanced to full liquids and tolerating well. pt+ flatus bm q 4 hours today (yesterday was q2 hours) abd still distended + bs no tenderness. denies nausea PT very happy with ngt being out. IVF
infsing at this time
[2024-04-04 14:25] LABS: Vitamin B12 > 1000 pg/ml (239-931)
[2024-04-04 15:08] VITALS: BP 100/57
[2024-04-04 19:49] VITALS: BP 108/53
[2024-04-04] MEDS: STERILE WATER FOR INJECTION 10 ML IV (20:40)
[2024-04-04] MEDS: ROCEPHIN 1000 MG IV (20:40)
[2024-04-04 23:14] VITALS: BP 108/57
[2024-04-05] MEDS: FLAGYL 500 MG 100 IV ×3 (03:18→20:30)
[2024-04-05 03:45] VITALS: BP 105/61
[2024-04-05 07:30] VITALS: BP 103/61
--- NOTE | 2024-04-05 10:29 | VATNOTE ---
During routine assessment, +2 pitting edema noted to pt's R arm. Pt denies pain. Flushed IV with NSS, states minor pain at beginning of flush. IV discontinued, clear fluid noted to drain from IV site. Suspect IV infiltration. Heat applied to arm and
elevated on pillow. Will continue to monitor.
--- NOTE | 2024-04-05 10:33 | PTCARENOTE ---
per IV team during rounds, Shikha Sorenson RN reported that patient had +2 edema in right arm and IV infiltrated. she placed heat and elevated right arm, will continue to monitor.
--- NOTE | 2024-04-05 11:02 | W.PN.NEPH.PH ---
Today's Communication / Plan
-
Follow-up BMP
Replete potassium.
Assessment/Plan
-
IMp:
SBO
Hyponatremia
prerenal azotemia
Leucocytosis
Anemia
Ulcerative colitis on chr prednisone
Plan:
Sodium corrected following 3% administration and was 136 04/04/24
Diet advanced to full liquid
serial BMP
await biopsy path
recheck bmp in am
replete K prn
-
-
Date of Service: April 05, 2024
CC / HPI / ROS
-
Chief Complaint:
hyponatremia
History of Present Illness:
Na 136 yesterday
s/p scope with stent/biopsy
BP stable
Review of Systems:
no CP/SOB
Labs
-
Labs:
WBC 10.6 10^3/uL (4.8-10.8) 04/04/24 05:53
RBC 3.46 10^6/uL (4.70-6.10) L 04/04/24 05:53
Hgb 10.2 g/dL (13.0-18.0) L 04/04/24 05:53
Hct 29.8 % (39.0-52.0) L 04/04/24 05:53
Plt Count 338 10^3/uL (130-400) 04/04/24 05:53
Sodium 136 mmol/L (135-145) 04/04/24 05:53
Potassium 3.3 mmol/L (3.5-5.1) L 04/04/24 05:53
Chloride 95 mmol/L (98-107) L 04/04/24 05:53
Carbon Dioxide 31 mmol/L (22-30) H 04/04/24 05:53
BUN 17 mg/dl (9-20) 04/04/24 05:53
Creatinine 0.6 mg/dL (0.7-1.3) L 04/04/24 05:53
eGFR > 60.00 04/04/24 05:53
Glucose 87 mg/dl (70-99) 04/04/24 05:53
Calcium 8.5 mg/dl (8.4-10.2) 04/04/24 05:53
Albumin 4.0 g/dl (3.5-5.0) 04/01/24 12:48
Physical Exam
-
Vital Signs:
Vital Signs
Temp Pulse Resp BP Pulse Ox
98.1 F 91 16 103/61 98
04/05/24 07:30 04/05/24 07:30 04/05/24 07:30 04/05/24 07:30 04/05/24 07:30
Cardiovascular:: Regular rate and rhythm
Respiratory:: Bilateral: Coarse
Lung Excursion:: Normal
Abdomen:: Nontender and Soft
Bowel Sounds:: Normal
Extremity Edema:: None: Bilateral:
[2024-04-05 11:35] VITALS: BP 111/65
--- NOTE | 2024-04-05 11:42 | W.PN.CRS1 ---
Today's Communication / Plan
-
abdominal xrays
Assessment/Plan
-
69-year-old male, with a PMH of ulcerative colitis (on no medications) presents with significant bloating and abdominal pain for 2 days. His last colonoscopy was in 2019 at [place], which she reports demonstrated 1 benign polyp. In the ED, his WBC
was 17.6, he was initially tachycardic, but improved with fluids, afebrile. A CT scan showed a sigmoid mask associated with large bowel obstruction as well as a 2.8 cm liver lesion. An NG tube was placed and has been since removed. He is now s/p
colonic stent by GI.
04/02- stent by GI
� Pathology from biopsy pending
� Continue full liquid diet today
- Abdominal xrays ordered trend decompression
� Pain control, minimize narcotics
� Started Lovenox for DVT prophylaxis
- Possible liver biopsy in the future, surgical plan to be discussed
- On IV antibiotics per hospitalist
Subjective Data
Subjective Data
Date of Service: April 05, 2024
Patient states he is less distended. He denies abdominal pain. He tolerated fulls without difficulty. He is urinating. He denies nausea or vomiting. He has flatus and stool.
Objective Data
-
Vital Signs
Temp Pulse Resp BP Pulse Ox
98.1 F 91 16 103/61 98
04/05/24 07:30 04/05/24 07:30 04/05/24 07:30 04/05/24 07:30 04/05/24 07:30
Intake & Output
04/04/24 04/05/24 04/06/24
06:59 06:59 06:59
Intake Total 2620 / 2620 960 / 960
Output Total 750 / 750
Balance 1870 / 1870 960 / 960
Intake:
Oral fluids 1140 / 1140 720 / 720
IV fluids (Total) 1220 / 1220 240 / 240
IV piggybacks 200 / 200
Amount instilled into GI Tube ( 60 / 60
Total)
[facility] Sump 60 / 60
Output:
Gastrointestinal tube output ( 750 / 750
Total)
[facility] Sump 750 / 750
Other:
Number of approximated MODERATE 1 2
amounts of urine
Lab Results
04/04/24 05:53
04/04/24 05:53
Physical Exam
-
General: No Acute Distress and AOx3
Abdomen: Soft, Distended (mild, improving) and Non Tender
--- NOTE | 2024-04-05 12:27 | W.PN.HOSP.TC ---
Today's Communication/Plan
-
Advance diet to LR
Assessment / Plan
Assessment / Plan
69-year-old man With abdominal pain and constipation.
CT of the abdomen and pelvis-sigmoid mass with resultant bowel obstruction. 2.8 cm low-density lesion in the superior right hepatic lobe suspicious for hepatic metastasis. Perisigmoid nodularity-regional yomaira metastasis versus metastatic soft
tissue deposits. Small volume abdominopelvic ascites. Moderate hiatal hernia with contrast in the distal esophagus-either GERD or dysmotility. Circumferential wall thickening of the distal esophagus.
#Small bowel obstruction with sigmoid mass
His last colonoscopy was in 2018 at [place]
NGT out yesterday.
Status post colonoscopy by Dr. Garcia-stricture in the sigmoid-biopsied and stent placed 04/02/2024
Currently on ceftriaxone and Flagyl-can be stopped if okay with GI
Pain control
Has bowel movements now
Advancement of diet to LR
Ensure ordered
# 2.8 cm superior right hepatic lobe lesion-possible metastatic lesion.
# Distal esophageal stricture/wall thickening-needs endoscopy at some point
# Severe hyponatremia
Secondary to prerenal causes
Sodium better with 3% saline
Sodium has normalized
Nephrology evaluation appreciated
# History of ulcerative colitis- Last colonoscopy was in 2019. Stopped following up at [place] as it was too far.
Discussed about the importance of colonoscopy in IBD.
# 20 lb weight loss
# Ex-smoker
# Full code
D/W at bed side
Anticipated Discharge: > 48 hours
Subjective/Interval History
-
Date of Service: April 05, 2024
Tolerating liquid diet without nausea vomiting. No abdominal pain. Having bowel movements which he states is turning more solid now.
No fevers
Objective Data
-
Vital Signs:
Vital Signs
Temp Pulse Resp BP Pulse Ox
98.7 F 98 17 111/65 98
04/05/24 11:35 04/05/24 11:35 04/05/24 11:35 04/05/24 11:35 04/05/24 11:35
I&O
04/04/24 04/05/24 04/06/24
06:59 06:59 06:59
Intake Total 2620 / 2620 960 / 960
Output Total 750 / 750
Balance 1870 / 1870 960 / 960
Review of Systems
-
Respiratory: Denies Trouble Breathing
Cardiac: Denies Chest Pain
Neuro: Denies Dizzy
Physical Exam
-
General: No Apparent Distress
HEENT: Moist Mucous Membranes
Respiratory: Non Labored Respirations; Negative Accessory Resp Muscle Use
GI: Soft, Nontender and Nondistended
Neuro: AO x 3
Psych: Calm
[2024-04-05 15:30] VITALS: BP 103/65
[2024-04-05] MEDS: LOVENOX 40 MG SC (17:15)
--- NOTE | 2024-04-05 18:05 | PTCARENOTE ---
patient denies pain, tolerating full liquids, abd less distended today,continent of brown liquid stool in bsc. independent in room with steady gait. sat oob most of day. can become tachycardic in 150's at times even at rest. Dr. Mason was made
aware, vss, will continue to monitor.
[2024-04-05 19:25] VITALS: BP 107/63
[2024-04-05] MEDS: STERILE WATER FOR INJECTION 10 ML IV (20:30)
[2024-04-05] MEDS: ROCEPHIN 1000 MG IV (20:30)
[2024-04-05 23:52] VITALS: BP 122/74
[2024-04-06] VITALS (7 sets, daily range): BP systolic 102–116; BP diastolic 54–65
[2024-04-06] MEDS: FLAGYL 500 MG 100 IV ×3 (03:41→20:00)
--- NOTE | 2024-04-06 04:26 | PTCARENOTE ---
Pt alarming AFib on heart monitor. Assessed rhythm and it looks as if pt is going in and out of AFib. HR 70s-80s. VSS. Pt denies palpitations. Tigertexted [facility] [facility] Provider and new order received to check a serum Mg level. AM labs drawn early with
serum Mg. Will continue to monitor.
[2024-04-06 04:54] LABS: Blood Urea Nitrogen 7 mg/dl (9-20); Calcium 8.8 mg/dl (8.4-10.2); Carbon Dioxide 28 mmol/L (22-30); Chloride 98 mmol/L (98-107); Estimated Creatinine Clearance 92 ml/min; Glucose 90 mg/dl (70-99); Magnesium 1.7 mg/dl (1.6-2.3); Potassium 3.6 mmol/L (3.5-5.1); Sodium 135 mmol/L (135-145); eGFR > 60.00
[2024-04-06] MEDS: MAGNESIUM SULFATE 102 GRAMS IV (06:14)
--- NOTE | 2024-04-06 08:00 | PN.CDI ---
CDI
- -
CDI:
Physician Documentation Request
Admit Date: 04/01/24 17:02
Dear Doctor Marlon,
Please review the following and provide your response in the progress notes.
Clinical Indicators:
04/05 [employer]
#CBW: 121 lbs 5 oz BMI 16.5 underweight range, 04/01.
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
#Pt meets criteria for severe protein calorie malnutrition of chronic illness
#...with significant weight loss and mod loss subcutaneous fat (orbital),
#...severe loss muscle (temporal, buccal, clavicle).
Based on the above information and your clinical assessment, which of the following most accurately represents the patient's nutritional status?
Severe Protein Calorie Malnutrition of chronic illness
Other (please specify)
[place] Criteria ([facility] Hospitalist 2017)
2 or more criteria must be present for either
non severe or severe malnutrition
Note that the criteria differs related to the
presence of an acute or chronic illness
Chronic Illness
Energy Intake Non Severe: <75% for >1 month
Severe: <75% for >1 month
Weight Loss Non Severe: 5% over 1 month
7.5% over 3 months
10% over 6 months
20% over 1 year
Severe: >5% over 1 month
>7.5% over 3 months
>10% over 6 months
>20% over 1 year
Body Fat Non Severe: Mild Loss
Severe: Severe Loss
Muscle Mass Non Severe: Mild Loss
Severe: Severe Loss
Use of terms such as suspected, likely, concern for, or probable (associated with a specific diagnosis that is being evaluated, monitored, or treated as if it exists) are acceptable and can be coded in the inpatient setting, when documented at the
time of discharge.
Thank you,
Jocelin George RN BSN CCDS
CDI Specialist
please contact via tiger text
Please use your independent medical judgment in providing your response.
[2024-04-06 08:30] LABS: CEA 61.4 ng/ml
--- NOTE | 2024-04-06 09:10 | VATNOTE ---
Pt. with reported swelling to right arm from previous IV site. Patient offers no complaints and reports swelling improved. No swelling, redness, or drainage noted.
[2024-04-06 10:05] LABS: Hematocrit 32.3 % (39.0-52.0); Hemoglobin 11.1 g/dL (13.0-18.0); Mean Corp Hgb Conc. 34.4 g/dL (33.0-37.0); Mean Corpuscular Hgb 30.5 pg (27.0-31.0); Mean Corpuscular Volume 88.7 fL (80.0-94.0); Mean Platelet Volume 9.7 fL (7.4-10.4); Platelet Count 344 10^3/uL (130-400); Red Blood Cell Count 3.64 10^6/uL (4.70-6.10); Red Cell Dist. Width 14.3 % (11.5-14.5); White Blood Cell Count 7.6 10^3/uL (4.8-10.8)
--- NOTE | 2024-04-06 10:28 | W.PN.CRS1 ---
Today's Communication / Plan
-
as below
Assessment/Plan
-
69-year-old male, denies any PMH (admitted part-way into admission that he has a h/o UC, off meds since 2019 and not following with his previous GI at [place]), who presents with significant bloating and abdominal pain for 2 days. This is never
happened to him before. It started with the bloating and belching 2 days ago, and developed into severe dull abdominal pain. He denies any nausea or vomiting, SOB/CP. His last BM was this morning, but he has not been passing flatus for few days.
His last colonoscopy was in 2019 at [place], which she reports demonstrated 1 benign polyp. In the ED, his WBC was 17.6, he was initially tachycardic, but improved with fluids, afebrile. A CT scan showed a sigmoid mask associated with large bowel
obstruction as well as a 2.8 cm liver lesion. An NG tube was placed.
S/p successful colonic stent 22mm x9cm placed; now with significant improvment in pain and bloating
� Large bowel obstruction due to sigmoid mass in setting of UC, concerning for cancer; s/p colonic stent
-f/u path
-repeat AXR with slight/minimal improvement, some gas now at the rectosigmoid
�will complete staging
-CTAP - perisigmoid nodularity c/f LAD vs soft tissue mets, 2.8 cm liver lesion; will consult IR today for biopsy of liver lesion
-CT chest - no mets, incidental segmental PE; two visible liver lesions; will need MRI vs triple phase CT liver eventually to clarify liver lesions
-CEA 61.4
-Appreciate hem/onc consult
�Continue at fulls today
� Pain control, minimize narcotics
� Continue DVT PPx with Lovenox; will need therapeutic AC, but hold for IR biopsy
� Appreciate hospitalist
Subjective Data
Subjective Data
Date of Service: April 06, 2024
No overnight events.
Denies any pain
Denies nausea/vomiting. Tolerating fulls.
+flatus (passing 'some') +BMs (having 'some') +voiding
Pt is OOB.
Objective Data
-
Vital Signs
Temp Pulse Resp BP Pulse Ox
98.2 F 78 18 106/58 98
04/06/24 07:30 04/06/24 07:30 04/06/24 07:30 04/06/24 07:30 04/06/24 07:30
Intake & Output
04/05/24 04/06/24 04/07/24
06:59 06:59 06:59
Intake Total 960 / 960 720 / 720
Balance 960 / 960 720 / 720
Intake:
Oral fluids 720 / 720 420 / 420
IV fluids (Total) 240 / 240
IV piggybacks 300 / 300
Other:
Number of approximated MODERATE 2
amounts of urine
Number of approximated LARGE 3
amounts of urine
How many times incontinent 5
MODERATE amount urine
Lab Results
04/06/24 09:55
04/06/24 04:24
Physical Exam
-
General: No Acute Distress and AOx3
HEENT: Grossly Normal
Abdomen: Soft, Distended (Mildly to moderately distended, somewhat improved from yesterday), Non Tender, No Guarding and No Rebound
Skin: Warm and Dry
[2024-04-06 10:38] LABS: APTT 30.7 Sec (23.4-35.0)
--- NOTE | 2024-04-06 11:06 | CM ---
Patient seen at bedside. Patient stated that he plans for discharge home with no needs. [facility] provided for patient to review. Patient stated that he anticipates discharge soon. 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
supports. CM will continue to follow for discharge planning needs.
Plan; home with no needs anticipated
--- NOTE | 2024-04-06 11:23 | CON.ONC ---
Impression
Impression
History of ulcerative colitis, currently not on any medication or being followed by primary care team at [place]
New found sigmoid mass causing bowel obstruction, status post stent placement
Plan
Plan
New found sigmoid mass with resultant bowel obstruction. Status post colonic stent .Continue antibiotics and medical care per primary care team and colorectal surgery.
Low-density lesion in superior right hepatic lobe suspicious for hepatic metastasis. Pending IR guided liver biopsy. Input appreciated
Pending final staging staging with CT chest and CEA (61). Pending pathology report.
After biopsy, consider anticoagulation for PE
Patient History
History of Present Illness
Patient is a 69-year-old male with history of ulcerative colitis, currently not on any medications or following a care team, presenting to [facility] with 2 weeks of abdominal discomfort, distention and constipation. Last colonoscopy was
in 2019 at [place] which had 1 benign polyp. Initial x-rays showed sigmoid mass and 2.8 cm superior right hepatic lobe lesion. Anoscopy by Dr. Garcia completed on 04/02 showed stricture in the sigmoid. Biopsy was taken and stent was placed. Patient
currently on ceftriaxone and Flagyl. CT of the abdomen and pelvis showed sigmoid mass with resultant bowel obstruction and perisigmoid nodularity, concerning for regional yomaira metastasis versus metastatic soft tissue deposits. After placement of
stent, patient had significant number of bowel movements and symptoms improved. Per colorectal surgery, patient was educated on surgical options: Segmental colectomy versus total proctocolectomy.
Today patient states feeling improved from previous days. He reports no headaches, nausea, vomiting, constipation, chest pain, shortness of breath, abdominal distention or pain. He reports ongoing loose stools. He states he has had 20 pound
weight loss over the last few weeks. No night sweats or fevers.
Past-Medical/Surgical History
Past Medical History: Reports Other (ulcerative colitis)
Past Surgical History: Reports Other (Bilateral inguinal hernia repair)
Patient Medication
�Medication �Instructions �Recorded �Confirmed �Last Taken �Type
ascorbic acid (vitamin C) 500 mg 500 mg PO DAILY Supplement 04/01/24 04/01/24 03/31/24 History
tablet (Vitamin C)
calcium carbonate (Calcium 600) 600 mg PO DAILY Supplement 04/01/24 04/01/24 03/31/24 History
cholecalciferol (vitamin D3) 25 25 mcg PO DAILY Supplement 04/01/24 04/01/24 03/31/24 History
mcg (1,000 unit) tablet (Vitamin
D3)
cyanocobalamin (vitamin B-12) 1,000 mcg PO DAILY Supplement 04/01/24 04/01/24 03/31/24 History
1,000 mcg tablet
magnesium oxide 400 mg PO DAILY Supplement 04/01/24 04/01/24 03/31/24 History
vitamin K2 90 mcg capsule 90 mcg PO DAILY Supplement 04/01/24 04/01/24 03/31/24 History
zinc sulfate 50 mg zinc (220 mg) 50 mg PO DAILY Supplement 04/01/24 04/01/24 03/31/24 History
tablet
Active Medications
Generic Name Dose Route Start Last Admin
Trade Name Freq PRN Reason Stop Dose Admin
Acetaminophen 650 mg 04/01/24 18:58
Acetaminophen 325 Mg Tablet PO 04/29/24 18:57
Q4HPRN PRN
mild pain /fever >100.4
Ceftriaxone Sodium 1,000 mg 04/01/24 20:00 04/05/24 20:30
Ceftriaxone 1000 Mg / 10 Ml Vial IV 1,000 mg
Q24H MIRANDA Administration
Heparin Sodium 4,400 units 04/06/24 11:02
Heparin 80 Units/Kg Iv Rebolus IV 05/04/24 11:01
PRN PRN
PTT < OR = 64 seconds
Heparin Sodium 2,200 units 04/06/24 11:03
Heparin 40 Units/Kg Iv Rebolus IV 05/04/24 11:02
PRN PRN
PTT = 64.1 to 72.9 seconds
Metronidazole 100 mls @ 100 mls/hr 04/01/24 20:00 04/06/24 03:41
Flagyl 500 Mg IV 100 mls
Q8H MIRANDA Administration
Heparin Sodium 25,000 units in 250 mls @ 0 mls/hr 04/06/24 11:00
Heparin 29877 Units/250 Ml IV
PER PROTOCOL MIRANDA
Protocol
Per Protocol
Morphine Sulfate 2 mg 04/01/24 18:58
Morphine 2 Mg/Ml Syringe IV 04/15/24 18:57
Q4HPRN PRN
MODERATE PAIN
Morphine Sulfate 4 mg 04/01/24 18:58
Morphine 4 Mg/Ml Injection IV 04/15/24 18:57
Q4HPRN PRN
SEVERE PAIN
Ondansetron HCl 4 mg 04/01/24 18:58
Ondansetron 4 Mg/2 Ml Vial IV 04/29/24 18:57
Q6HPRN PRN
nausea/vomiting
Sodium Chloride 0 flush 04/01/24 20:00
Sodium Chloride 0.9% (Flush) Syringe IV 04/29/24 19:59
PER PROTOCOL MIRANDA
Sterile Water 10 ml 04/01/24 20:00 04/05/24 20:30
Sterile Water For Injection 10 Ml Vial IV 04/29/24 19:59 10 ml
Q24H MIRANDA Administration
Review of Systems
-
History Source: Patient
Constitutional: Reports Weight Loss
EENT: Reports No Symptoms
Respiratory: Reports No Symptoms
Cardiac: Reports No Symptoms
GI: Reports Diarrhea
Psych: Reports No Symptoms
Physical Exam
-
General: Comfortable, Conversant and Cachetic
Cardiology: Normal Sinus Rhythm, S1 and S2
Pulmonary: Clear
GI: Soft and Normal Bowel Sounds
Musculoskeletal: No Clubbing, No Cyanosis and No Edema
Skin: Warm and Dry
Psych: Calm
Labs
Lab Results
WBC 7.6 10^3/uL (4.8-10.8) 04/06/24 09:55
RBC 3.64 10^6/uL (4.70-6.10) L 04/06/24 09:55
Hgb 11.1 g/dL (13.0-18.0) L 04/06/24 09:55
Hct 32.3 % (39.0-52.0) L 04/06/24 09:55
MCV 88.7 fL (80.0-94.0) 04/06/24 09:55
MCH 30.5 pg (27.0-31.0) 04/06/24 09:55
MCHC 34.4 g/dL (33.0-37.0) 04/06/24 09:55
RDW 14.3 % (11.5-14.5) 04/06/24 09:55
Plt Count 344 10^3/uL (130-400) 04/06/24 09:55
MPV 9.7 fL (7.4-10.4) 04/06/24 09:55
Abs Immat Gran (auto) 0.1 10^3/uL (0-0.05) H 04/01/24 12:48
Absolute Neuts (auto) 15.0 10^3/uL (1.4-6.5) H 04/01/24 12:48
Absolute Lymphs (auto) 1.1 10^3/uL (1.2-3.4) L 04/01/24 12:48
Absolute Monos (auto) 1.4 10^3/uL (0.1-0.6) H 04/01/24 12:48
Absolute Eos (auto) 0.0 10^3/uL (0-0.7) 04/01/24 12:48
Absolute Basos (auto) 0.0 10^3/uL (0-0.2) 04/01/24 12:48
Immature Gran % 0.3 % (0-0.5) 04/01/24 12:48
Neutrophils % 85.2 % (42.2-75.2) H 04/01/24 12:48
Lymphocytes % 6.4 % (20.5-51.1) L 04/01/24 12:48
Monocytes % 8.0 % (1.7-9.3) 04/01/24 12:48
Eosinophils % 0.0 % (0-6) 04/01/24 12:48
Basophils % 0.1 % (0-2) 04/01/24 12:48
Creatinine 0.6 mg/dL (0.7-1.3) L 04/06/24 04:24
Vital Signs
Vital Signs
Temp Pulse Resp BP Pulse Ox
98.2 F 78 18 106/58 98
04/06/24 07:30 04/06/24 07:30 04/06/24 07:30 04/06/24 07:30 04/06/24 07:30
--- NOTE | 2024-04-06 12:15 | W.PN.HOSP.TC ---
Addendum entered and electronically signed by Hemal Mason MD 04/07/24 07:36:
#CBW: 121 lbs 5 oz BMI 16.5 underweight range, 04/01.
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
#Pt meets criteria for severe protein calorie malnutrition of chronic illness
#...with significant weight loss and mod loss subcutaneous fat (orbital),
#...severe loss muscle (temporal, buccal, clavicle).
Original Note:
Today's Communication/Plan
-
Start on IV heparin. Check ultrasound of the legs. Consult oncology.
Continue with liquid diet.
Await IR liver biopsy.
Assessment / Plan
Assessment / Plan
69-year-old man With abdominal pain and constipation.
CT of the abdomen and pelvis-sigmoid mass with resultant bowel obstruction. 2.8 cm low-density lesion in the superior right hepatic lobe suspicious for hepatic metastasis. Perisigmoid nodularity-regional yomaira metastasis versus metastatic soft
tissue deposits. Small volume abdominopelvic ascites. Moderate hiatal hernia with contrast in the distal esophagus-either GERD or dysmotility. Circumferential wall thickening of the distal esophagus.
#Small bowel obstruction with sigmoid mass
His last colonoscopy was in 2019 at [place]
NGT out and on full liquid diet.
Status post colonoscopy by Dr. Garcia-stricture in the sigmoid-biopsied and stent placed 04/02/2024
Currently on ceftriaxone and Flagyl-patient's on admission had a leukocytosis. His CT also showed colonic wall thickening in the sigmoid area which could be the metastatic disease itself but he also had a perisigmoidal nodularity and small volume
ascites. Resolved leukocytosis with antibiotics. Finish 7 days of antibiotic course.
Has bowel movements now
Advancement of diet per CRS
Ensure ordered
Will consult Onc for plan going forward;path pending
# 2.8 cm superior right hepatic lobe lesion-possible metastatic lesion. CRS requesting IR bx
# Distal esophageal stricture/wall thickening-needs endoscopy at some point
# Acute PE -staging CT chest with IV contrast shows no evidence of pulmonary met but incidental note is made of pulmonary embolus involving the lateral segmental branch of the right lower lobe pulmonary artery. He is asymptomatic without chest pain
or shortness of breath. Check ultrasound of the legs. Start on IV heparin for anticoagulation.
# Severe hyponatremia
Secondary to prerenal causes
Sodium better with 3% saline
Sodium has normalized
Nephrology evaluation appreciated
# History of ulcerative colitis- Last colonoscopy was in 2019. Stopped following up at [place] as it was too far.
Discussed about the importance of colonoscopy in IBD.
# 20 lb weight loss
# Ex-smoker
# Full code
D/W at bed side
Total time spent on today's encounter was 52 minutes which included time spent in counseling the patient/family regarding diagnosis and treatment plan as listed above, goals of care, and symptom management. Case was discussed with nursing staff,
specialists, and care coordinators/case management. All labs and imaging personally reviewed by me. Remainder the time spent in detailed review of previous records, lab data, imaging, and other medical provider documentation.
Anticipated Discharge: > 48 hours
Subjective/Interval History
-
Date of Service: April 06, 2024
Some crampiness with the full liquid diet but no nausea or vomiting. No abdominal pain. Having some bowel movements.
Denies any chest pain or shortness of breath.
Objective Data
-
Labs:
Laboratory Results
04/06/24 04/06/24
04:24 09:55
WBC 7.6
Hgb 11.1 L
Hct 32.3 L
Plt Count 344
APTT 30.7
Sodium 135
Potassium 3.6
Chloride 98
Carbon Dioxide 28
BUN 7 L
Creatinine 0.6 L
Glucose 90
Calcium 8.8
Vital Signs:
Vital Signs
Temp Pulse Resp BP Pulse Ox
98.0 F 94 18 102/56 99
04/06/24 11:45 04/06/24 11:45 04/06/24 11:45 04/06/24 11:45 04/06/24 11:45
I&O
04/05/24 04/06/24 04/07/24
06:59 06:59 06:59
Intake Total 960 / 960 720 / 720
Balance 960 / 960 720 / 720
Review of Systems
-
Constitutional: Denies Fever or Chills
Neuro: Denies Dizzy
Physical Exam
-
General: Comfortable
Respiratory: Clear to Auscultation and Non Labored Respirations; Negative Accessory Resp Muscle Use
Cardiac: Regular Rhythm and S1/S2; Negative Tachycardic
GI: Soft, Nontender and Distended (mild)
Musculoskeletal: No Edema
Neuro: AO x 3
Psych: Calm
Data Reviewed
-
CT Scan: Report Reviewed by me (chest CT)
Labs: Labs Reviewed by me
[2024-04-06] MEDS: HEPARIN 25000 UNITS/250 ML IV (12:50)
--- NOTE | 2024-04-06 15:30 | W.PN.NEPH.PH ---
Today's Communication / Plan
-
cont FR
Assessment/Plan
-
IMp:
SBO
Hyponatremia
prerenal azotemia
Leucocytosis
Anemia
Ulcerative colitis on chr prednisone
Plan:
Sodium stable at 135
cont FR and encourage solute intake
w/u in progress, liver biopsy tomorrow
AC forPE
will s/o, call with ?s
-
-
Date of Service: April 06, 2024
CC / HPI / ROS
-
Chief Complaint:
hyponatremia
History of Present Illness:
Na 135 today
s/p scope with stent/biopsy 04/02
BP stable
Review of Systems:
no CP/SOB
no dizziness
Labs
-
Labs:
WBC 7.6 10^3/uL (4.8-10.8) 04/06/24 09:55
RBC 3.64 10^6/uL (4.70-6.10) L 04/06/24 09:55
Hgb 11.1 g/dL (13.0-18.0) L 04/06/24 09:55
Hct 32.3 % (39.0-52.0) L 04/06/24 09:55
Plt Count 344 10^3/uL (130-400) 04/06/24 09:55
Sodium 135 mmol/L (135-145) 04/06/24 04:24
Potassium 3.6 mmol/L (3.5-5.1) 04/06/24 04:24
Chloride 98 mmol/L (98-107) 04/06/24 04:24
Carbon Dioxide 28 mmol/L (22-30) 04/06/24 04:24
BUN 7 mg/dl (9-20) L 04/06/24 04:24
Creatinine 0.6 mg/dL (0.7-1.3) L 04/06/24 04:24
eGFR > 60.00 04/06/24 04:24
Glucose 90 mg/dl (70-99) 04/06/24 04:24
Calcium 8.8 mg/dl (8.4-10.2) 04/06/24 04:24
Albumin 4.0 g/dl (3.5-5.0) 04/01/24 12:48
Physical Exam
-
Vital Signs:
Vital Signs
Temp Pulse Resp BP Pulse Ox
98.0 F 94 18 102/56 99
04/06/24 11:45 04/06/24 11:45 04/06/24 11:45 04/06/24 11:45 04/06/24 11:45
Cardiovascular:: Regular rate and rhythm
Respiratory:: Bilateral: CTA
Lung Excursion:: Normal
Abdomen:: Nontender and Soft
Extremity Edema:: None: Bilateral:
[place]rera Catheter: No
[2024-04-06] MEDS: STERILE WATER FOR INJECTION 10 ML IV (19:59)
[2024-04-06] MEDS: ROCEPHIN 1000 MG IV (19:59)
[2024-04-06] MEDS: FLUSH (NSS) 3 FLUSH IV (20:00)
[2024-04-06 20:08] LABS: APTT 30.5 Sec (23.4-35.0)
[2024-04-06] MEDS: HEPARIN 4400 UNITS IV (20:23)
[2024-04-07] MEDS: HEPARIN 4400 UNITS IV ×3 (03:12→16:20)
[2024-04-07 03:15] VITALS: BP 110/62
[2024-04-07] MEDS: FLAGYL 500 MG 100 IV ×3 (03:16→20:51)
[2024-04-07] MEDS: FLUSH (NSS) 2 FLUSH IV ×2 (03:17→20:54)
[2024-04-07 07:00] VITALS: BP 105/57
--- NOTE | 2024-04-07 09:02 | W.PN.CRS1 ---
Today's Communication / Plan
-
As below
Assessment/Plan
-
69-year-old male, denies any PMH (admitted part-way into admission that he has a h/o UC, off meds since 2019 and not following with his previous GI at [facility]), who presents with significant bloating and abdominal pain for 2 days. This is never
happened to him before. It started with the bloating and belching 2 days ago, and developed into severe dull abdominal pain. He denies any nausea or vomiting, SOB/CP. His last BM was this morning, but he has not been passing flatus for few days.
His last colonoscopy was in 2019 at [facility], which she reports demonstrated 1 benign polyp. In the ED, his WBC was 17.6, he was initially tachycardic, but improved with fluids, afebrile. A CT scan showed a sigmoid mass associated with large bowel
obstruction as well as a 2.8 cm liver lesion. An NG tube was placed.
S/p successful colonic stent 22mm x9cm placed
AFVSS
WBC 7.3, Hb 11.1
� Large bowel obstruction due to sigmoid mass in setting of UC, concerning for cancer; s/p colonic stent
-f/u path
�staging:
-CTAP - perisigmoid nodularity c/f LAD vs soft tissue mets, 2.8 cm liver lesion; plan for IR today for biopsy of liver lesion
-CT chest - no mets, incidental segmental PE; two visible liver lesions; will need MRI vs triple phase CT liver eventually to clarify liver lesions
-CEA 61.4
-Appreciate hem/onc consult
� NPO for procedure; ok for low residue afterward
� Pain control, minimize narcotics
� On hep drip, hold for IR procedure
� Appreciate hospitalist
Subjective Data
Subjective Data
Date of Service: April 07, 2024
No overnight events. Abdomen feels almost back to normal size.
Denies pain.
Denies nausea/vomiting. Currently n.p.o. for procedure.
+flatus +BMs +voiding
Pt is OOB.
Objective Data
-
Vital Signs
Temp Pulse Resp BP Pulse Ox
97.9 F 86 18 105/57 98
04/07/24 07:00 04/07/24 07:00 04/07/24 07:00 04/07/24 07:00 04/07/24 07:00
Intake & Output
04/06/24 04/07/24 04/08/24
06:59 06:59 06:59
Intake Total 720 / 720 1580 / 1580 480 / 480
Balance 720 / 720 1580 / 1580 480 / 480
Intake:
Oral fluids 420 / 420 1080 / 1080 480 / 480
IV fluids (Total) 100 / 100
IV piggybacks 300 / 300 400 / 400
Other:
Number of approximated MODERATE 3 2
amounts of urine
Number of approximated LARGE 3
amounts of urine
How many times incontinent 5
MODERATE amount urine
Lab Results
04/06/24 09:55
04/06/24 04:24
Physical Exam
-
General: No Acute Distress and AOx3
Abdomen: Soft, Distended (Mildly distended, improved from yesterday), Non Tender, No Guarding and No Rebound
Skin: Warm and Dry
[2024-04-07 09:53] LABS: APTT 31.5 Sec (23.4-35.0)
[2024-04-07] MEDS: HEPARIN 25000 UNITS/250 ML IV (10:05)
[2024-04-07 11:00] VITALS: BP 105/66
[2024-04-07] MEDS: MIRALAX 17 GRAMS PO (12:48)
--- NOTE | 2024-04-07 13:37 | W.PN.HOSP.TC ---
Today's Communication/Plan
-
Restart full liquid diet as BX is cancelled
CW IV heparin
Assessment / Plan
Assessment / Plan
69-year-old man With abdominal pain and constipation.
CT of the abdomen and pelvis-sigmoid mass with resultant bowel obstruction. 2.8 cm low-density lesion in the superior right hepatic lobe suspicious for hepatic metastasis. Perisigmoid nodularity-regional yomaira metastasis versus metastatic soft
tissue deposits. Small volume abdominopelvic ascites. Moderate hiatal hernia with contrast in the distal esophagus-either GERD or dysmotility. Circumferential wall thickening of the distal esophagus.
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
His last colonoscopy was in 2019 at [place]
NGT out and on full liquid diet.
Status post colonoscopy by Dr. Garcia-stricture in the sigmoid-biopsied and stent placed 04/02/2024
Currently on ceftriaxone and Flagyl-patient's on admission had a leukocytosis. His CT also showed colonic wall thickening in the sigmoid area which could be the metastatic disease itself but he also had a perisigmoidal nodularity and small volume
ascites. Resolved leukocytosis with antibiotics. Finish 7 days of antibiotic course.
Has bowel movements now
Advancement of diet per CRS
Ensure ordered
Appt Onc input
# 2.8 cm superior right hepatic lobe lesion-possible metastatic lesion. CRS requesting IR bx - BX cancel at is it not easily accessible per IR. Consider MR imaging -will dw Onc.
# Distal esophageal stricture/wall thickening-needs endoscopy at some point
# Acute PE -staging CT chest with IV contrast shows no evidence of pulmonary met but incidental note is made of pulmonary embolus involving the lateral segmental branch of the right lower lobe pulmonary artery. He is asymptomatic without chest pain
or shortness of breath. cw IV heparin for anticoagulation -switch to oral Eliquis once plans for dc clear.
# Acute DVT - US shows Positive occlusive thrombus within the left gastrocnemius veins, in this patient with known pulmonary embolism. CW AC.
# Severe hyponatremia
Secondary to prerenal causes
Sodium better with 3% saline
Sodium has normalized
Nephrology evaluation appreciated
# History of ulcerative colitis- Last colonoscopy was in 2019. Stopped following up at [place] as it was too far.
Discussed about the importance of colonoscopy in IBD.
# 20 lb weight loss
# Ex-smoker
# Full code
D/W CRS and Onc today
Total time spent on today's encounter was 52 minutes which included time spent in counseling the patient/family regarding diagnosis and treatment plan as listed above, goals of care, and symptom management. Case was discussed with nursing staff,
specialists, and care coordinators/case management. All labs and imaging personally reviewed by me. Remainder the time spent in detailed review of previous records, lab data, imaging, and other medical provider documentation.
Anticipated Discharge: > 48 hours
Subjective/Interval History
-
Date of Service: April 07, 2024
Voicing no specific complaints. Was n.p.o. for the liver bx which got canceled
Objective Data
-
Labs:
Laboratory Results
04/07/24 04/07/24 04/07/24
02:36 09:12 16:15
APTT 41.0 H 31.5 Pending
Vital Signs:
Vital Signs
Temp Pulse Resp BP Pulse Ox
98.0 F 93 18 105/66 98
04/07/24 11:00 04/07/24 11:00 04/07/24 11:00 04/07/24 11:00 04/07/24 11:00
I&O
04/06/24 04/07/24 04/08/24
06:59 06:59 06:59
Intake Total 720 / 720 1580 / 1580 480 / 480
Balance 720 / 720 1580 / 1580 480 / 480
Review of Systems
-
Respiratory: Denies Trouble Breathing
Cardiac: Denies Chest Pain
Abdomen/GI: Denies Abdominal Pain, Nausea or Vomiting
Physical Exam
-
General: Comfortable
Respiratory: Non Labored Respirations; Negative Accessory Resp Muscle Use
Cardiac: Regular Rhythm and S1/S2
GI: Soft, Nontender and Distended (mild)
Neuro: AO x 3
Data Reviewed
-
Labs: Labs Reviewed by me
--- NOTE | 2024-04-07 13:54 | CM ---
Patient seen at bedside. Patient on heprin and CM consulted for cost of eliquis. CM will call insurance and update patient re cost anticipated.
[2024-04-07 15:00] VITALS: BP 99/66
[2024-04-07 16:09] LABS: APTT 45.7 Sec (23.4-35.0)
--- NOTE | 2024-04-07 17:15 | VATNOTE ---
Right arm swelling reassessed. Completely resolved.
[2024-04-07 19:00] VITALS: BP 107/61
[2024-04-07] MEDS: ROCEPHIN 1000 MG IV (20:50)
[2024-04-07] MEDS: STERILE WATER FOR INJECTION 10 ML IV (20:51)
[2024-04-07 23:00] VITALS: BP 109/63
[2024-04-08] MEDS: HEPARIN 25000 UNITS/250 ML IV ×2 (00:13→14:55)
[2024-04-08] MEDS: FLAGYL 500 MG 100 IV ×2 (04:20→12:36)
[2024-04-08 05:11] LABS: Hemoglobin 9.8 g/dL (13.0-18.0); Mean Corpuscular Hgb 30.4 pg (27.0-31.0); Mean Platelet Volume 9.4 fL (7.4-10.4); Platelet Count 387 10^3/uL (130-400); Red Blood Cell Count 3.22 10^6/uL (4.70-6.10); Red Cell Dist. Width 14.1 % (11.5-14.5); White Blood Cell Count 10.2 10^3/uL (4.8-10.8)
[2024-04-08] MEDS: HEPARIN 4400 UNITS IV ×2 (05:44→17:42)
[2024-04-08 07:35] VITALS: BP 95/61
[2024-04-08] MEDS: MIRALAX 17 GRAMS PO (08:09)
--- NOTE | 2024-04-08 09:51 | W.PN.CRS1 ---
Today's Communication / Plan
-
MRI abdomen
low residue
Assessment/Plan
-
69-year-old male, denies any PMH (admitted part-way into admission that he has a h/o UC, off meds since 2019 and not following with his previous GI at [facility]), who presents with significant bloating and abdominal pain for 2 days. This is never
happened to him before. It started with the bloating and belching 2 days ago, and developed into severe dull abdominal pain. He denies any nausea or vomiting, SOB/CP. His last BM was this morning, but he has not been passing flatus for few days.
His last colonoscopy was in 2019 at [facility], which she reports demonstrated 1 benign polyp. In the ED, his WBC was 17.6, he was initially tachycardic, but improved with fluids, afebrile. A CT scan showed a sigmoid mass associated with large bowel
obstruction as well as a 2.8 cm liver lesion. An NG tube was placed.
S/p successful colonic stent 22mm x9cm placed
AFVSS
WBC 10.2, Hb 9.8
� Large bowel obstruction due to sigmoid mass in setting of UC, concerning for cancer; s/p colonic stent
-path - adenocarinoma, discussed with patient this MA
�staging:
-CTAP - perisigmoid nodularity c/f LAD vs soft tissue mets, 2.8 cm liver lesion; plan for IR today for biopsy of liver lesion
-CT chest - no mets, incidental segmental PE
-MRI abdomen for ?liver met ordered
-CEA 61.4
-Appreciate hem/onc consult
� Low residue diet
� Pain control, minimize narcotics
� On hep drip
� Appreciate hospitalist
Subjective Data
Subjective Data
Date of Service: April 08, 2024
Patient states he feels 'good'. He has no nausea or vomiting. He is less bloated. He is having soft bowel movements.
Objective Data
-
Vital Signs
Temp Pulse Resp BP Pulse Ox
98.3 F 90 18 95/61 98
04/08/24 07:35 04/08/24 07:35 04/08/24 07:35 04/08/24 07:35 04/08/24 07:35
Intake & Output
04/07/24 04/08/24 04/09/24
06:59 06:59 06:59
Intake Total 1580 / 1580 840 / 840 120 / 120
Output Total 400 / 400
Balance 1580 / 1580 440 / 440 120 / 120
Intake:
Oral fluids 1080 / 1080 840 / 840 120 / 120
IV fluids (Total) 100 / 100
IV piggybacks 400 / 400
Output:
Urine, Voided 400 / 400
Other:
Number of approximated MODERATE 3 2
amounts of urine
Number of approximated LARGE 4
amounts of urine
Number of unmeasured liquid
stools
Rectum 4
Lab Results
04/08/24 05:00
04/06/24 04:24
Physical Exam
-
General: No Acute Distress and AOx3
Abdomen: Soft, Non Distended and Non Tender
Skin: Warm and Dry
--- NOTE | 2024-04-08 09:54 | PN.CDI ---
CDI
- -
CDI:
Physician Documentation Request
Admit Date: 04/01/24 17:02
Dear Doctor Marlon,
Please review the following and provide your response in the progress notes.
Clinical Indicators:
Laboratory Tests
04/01/24 04/02/24 04/03/24
12:48 06:01 08:46
RBC 4.14 L 3.84 L 3.71 L
Hgb 12.6 L 11.4 L 11.2 L
Hct 35.4 L 31.7 L 32.3 L
04/04/24 04/06/24 04/08/24
05:53 09:55 05:00
RBC 3.46 L 3.64 L 3.22 L
Hgb 10.2 L 11.1 L 9.8 L
Hct 29.8 L 32.3 L 28.0 L
Based on the above and your clinical assessment, please clarify, which of the following is the most likely condition/diagnosis evaluated, monitored and/or treated?
Acute blood loss anemia with baseline chronic anemia (Specify type)
Anemia of chronic disease - indicate if neoplastic disease, CKD or other
Precipitous drop in hematocrit
Other(please specify)
Use of terms such as suspected, likely, concern for, or probable (associated with a specific diagnosis that is being evaluated, monitored, or treated as if it exists) are acceptable and can be coded in the inpatient setting, when documented at the
time of discharge.
Thank you,
Jocelin George RN BSN CCDS
CDI Specialist
please contact via tiger text
Please use your independent medical judgment in providing your response.
--- NOTE | 2024-04-08 10:31 | W.PN.ONC2 ---
Addendum entered and electronically signed by Alexa Leblanc MD 04/08/24 19:12:
Personally reviewed MRI showing three separate liver lesions across R dome, R lobe and L lobe.
Also has some nodularity around sigmoid concerning for peritoneal disease.
Discussed usual management of colorectal cancer including staging, NGS, treatment.
Anticipate NGS as outpt.
Liver lesions unable to be biopsied. Outpt PET, eval for other biopsiable site to verify met dz.
Gave pt and websites for NCCN and NCI online resources.
Unfortunately I doubt we are treating with curative intent but I did not have this specific conversation today.
Time spent with pt and : 40 min.
Original Note:
Today's Communication / Plan
-
New found sigmoid mass with resultant bowel obstruction. Status post colonic stent. Continue antibiotics and medical care per primary care team and colorectal surgery.
Low-density lesion in superior right hepatic lobe suspicious for hepatic metastasis. Further characterization needed for staging- pending MRI results.
Pending final staging staging with CT chest and CEA (61). Pathology report positive for adenocarcinoma, MMR proficient. Treatment options dependent on final staging of disease.
After biopsy, consider anticoagulation for PE
Impression
Impression
History of ulcerative colitis, currently not on any medication or being followed by primary care team at [facility]
New found sigmoid mass causing bowel obstruction, status post stent placement
Subjective/Objective
Chief Complaint
Oncology follow up
Subjective
Patient to have MRI today for further characterization of liver mass and staging of disease.
Vital Signs:
Vital Signs
Temp Pulse Resp BP Pulse Ox
98.3 F 90 18 95/61 98
04/08/24 07:35 04/08/24 07:35 04/08/24 07:35 04/08/24 07:35 04/08/24 07:35
Lab Results:
Laboratory Data
WBC 10.2 10^3/uL (4.8-10.8) 04/08/24 05:00
Hgb 9.8 g/dL (13.0-18.0) L 04/08/24 05:00
Plt Count 387 10^3/uL (130-400) 04/08/24 05:00
PT 15.2 Sec (11.4-14.6) H 04/02/24 07:54
INR 1.22 04/02/24 07:54
APTT 54.0 Sec (23.4-35.0) H 04/08/24 05:00
eGFR > 60.00 04/06/24 04:24
--- NOTE | 2024-04-08 10:45 | CM ---
Patient seen at bedside, patient stated that he would be able to deal with eliquis cost of 47$ per month, CM will provide coupon for Eliquis. CM will continue to follow for discharge planning needs.
Plan; home with no VN needed.
[2024-04-08 10:58] LABS: APTT 92.1 Sec (23.4-35.0)
[2024-04-08 11:44] LABS: Prealbumin (Transthyretin) 8.1 mg/dl (17.6-36.0)
--- NOTE | 2024-04-08 13:34 | W.PN.HOSP.TC ---
Today's Communication/Plan
-
Advance diet to low residue diet
Follow MRI report
DC planning
Assessment / Plan
Assessment / Plan
69-year-old man With abdominal pain and constipation.
CT of the abdomen and pelvis-sigmoid mass with resultant bowel obstruction. 2.8 cm low-density lesion in the superior right hepatic lobe suspicious for hepatic metastasis. Perisigmoid nodularity-regional yomaira metastasis versus metastatic soft
tissue deposits. Small volume abdominopelvic ascites. Moderate hiatal hernia with contrast in the distal esophagus-either GERD or dysmotility. Circumferential wall thickening of the distal esophagus.
#Small bowel obstruction with sigmoid adenocarcinoma- Path confirms adenocarcinoma
His last colonoscopy was in 2019 at [place]
NGT out and on full liquid diet.
Status post colonoscopy by Dr. Garcia-stricture in the sigmoid-biopsied and stent placed 04/02/2024
Currently on ceftriaxone and Flagyl-patient's on admission had a leukocytosis. His CT also showed colonic wall thickening in the sigmoid area which could be the metastatic disease itself but he also had a perisigmoidal nodularity and small volume
ascites. Resolved leukocytosis with antibiotics. Finish 7 days of antibiotic course.
Has bowel movements now
Advancement of diet per CRS
Ensure ordered
Appt Onc input
# 2.8 cm superior right hepatic lobe lesion-possible metastatic lesion. CRS requesting IR bx - BX cancel at is it not easily accessible per IR. MR imaging report pending.
# Distal esophageal stricture/wall thickening-needs endoscopy at some point
# Acute PE -staging CT chest with IV contrast shows no evidence of pulmonary met but incidental note is made of pulmonary embolus involving the lateral segmental branch of the right lower lobe pulmonary artery. He is asymptomatic without chest pain
or shortness of breath. cw IV heparin for anticoagulation -switch to oral Eliquis once plans for dc clear.
# Acute DVT - US shows Positive occlusive thrombus within the left gastrocnemius veins, in this patient with known pulmonary embolism. CW AC.Will switch to oral Eliquis which is not cost prohibitive on dc.
# Severe hyponatremia
Secondary to prerenal causes
Sodium better with 3% saline
Sodium has normalized
Nephrology evaluation appreciated
# History of ulcerative colitis- Last colonoscopy was in 2018. Stopped following up at [place] as it was too far.
Discussed about the importance of colonoscopy in IBD.
# 20 lb weight loss
# Ex-smoker
# Full code
Anticipated Discharge: > 48 hours
Subjective/Interval History
-
Date of Service: April 08, 2024
Back from his MRI.
Tolerating liquid diet. Having bowel movements which are looser in consistency.
No abdominal pain.
Objective Data
-
Labs:
Laboratory Results
04/08/24 04/08/24 04/08/24
05:00 10:33 16:30
WBC 10.2
Hgb 9.8 L
Hct 28.0 L
Plt Count 387
APTT 54.0 H 92.1 H Pending
Vital Signs:
Vital Signs
Temp Pulse Resp BP Pulse Ox
98.3 F 90 18 95/61 98
04/08/24 07:35 04/08/24 07:35 04/08/24 07:35 04/08/24 07:35 04/08/24 07:35
I&O
04/07/24 04/08/24 04/09/24
06:59 06:59 06:59
Intake Total 1580 / 1580 840 / 840 120 / 120
Output Total 400 / 400
Balance 1580 / 1580 440 / 440 120 / 120
Review of Systems
-
Constitutional: Denies Fever
Respiratory: Denies Trouble Breathing
Cardiac: Denies Chest Pain
Neuro: Denies Dizzy
Physical Exam
-
General: Comfortable
Respiratory: Non Labored Respirations; Negative Accessory Resp Muscle Use
Cardiac: Regular Rhythm and S1/S2
GI: Soft, Nontender, Nondistended and Normal Bowel Sounds
Neuro: AO x 3
Psych: Calm
Data Reviewed
-
Labs: Labs Reviewed by me
[2024-04-08 15:13] VITALS: BP 104/60
--- NOTE | 2024-04-08 15:26 | PTCARENOTE ---
patient denies pain, tolerated low residue diet for lunch, independent in room, vss, heparin infusing without difficulty, will continue to monitor.
[2024-04-08 17:00] LABS: APTT 50.6 Sec (23.4-35.0)
--- NOTE | 2024-04-08 18:02 | PTCARENOTE ---
Addendum entered by Haritha Diallo RN 04/08/24 19:17:
at 1643, patient's PTT 50.6. Heparin drip was stopped while he was off floor for MRI today. Notified Dr. Mason and telephone order obtained at 1738 to bolus patient with 4,400units IV (80units/kg) per protocol and to keep heparin dip infusing at
20ml/hr (2000units/her). will recheck PTT 2345, will continue to monitor.
Original Note:
at 1643, patient's PTT 50.6. Heparin drip was stopped while he was off floor for MRI today. Notified Dr. Mason and telephone order obtained at 1738 to bolus patient with 4,400units IV (80units/kg) per protocol and to keep heparin dip infusing at
20ml/hr (2000units/her). will recheck PTT 2245, will continue to monitor.
[2024-04-08] MEDS: ROCEPHIN 1000 MG IV (19:45)
[2024-04-08] MEDS: STERILE WATER FOR INJECTION 10 ML IV (19:46)
[2024-04-08] MEDS: FLAGYL 500 MG PO (21:18)
[2024-04-08 23:30] VITALS: BP 101/63
[2024-04-09 00:39] LABS: APTT 101.1 Sec (23.4-35.0)
[2024-04-09] MEDS: HEPARIN 25000 UNITS/250 ML IV (03:55)
[2024-04-09 06:49] LABS: APTT 84.7 Sec (23.4-35.0)
[2024-04-09 07:33] VITALS: BP 104/62
[2024-04-09] MEDS: FLAGYL 500 MG PO ×2 (08:58→15:40)
[2024-04-09] MEDS: MIRALAX 17 GRAMS PO (08:58)
--- NOTE | 2024-04-09 10:32 | CM ---
Patient seen at bedside. coupon provided for Eliquis and patient is for discharge home. Patient given IMM for review and patient requested to sign after reading it over with . CM will continue to follow for discharge planning needs.
Plan; home with no needs anticipated.
--- NOTE | 2024-04-09 10:48 | W.PN.HOSP.TC ---
Addendum entered and electronically signed by Hemal Mason MD 04/13/24 12:07:
Normocytic anemia noted - iron studies suggest anemia of chronic disease suspect sec to malignancy
Addendum entered and electronically signed by Hemal Mason MD 04/09/24 16:19:
DW CRS and Onc - ok for dc from their end and follow as OP with them.
Total time of dc 32 min
Original Note:
Today's Communication/Plan
-
repeat H&H today.
DC planning.
Assessment / Plan
Assessment / Plan
69-year-old man With abdominal pain and constipation.
CT of the abdomen and pelvis-sigmoid mass with resultant bowel obstruction. 2.8 cm low-density lesion in the superior right hepatic lobe suspicious for hepatic metastasis. Perisigmoid nodularity-regional yomaira metastasis versus metastatic soft
tissue deposits. Small volume abdominopelvic ascites. Moderate hiatal hernia with contrast in the distal esophagus-either GERD or dysmotility. Circumferential wall thickening of the distal esophagus.
#Small bowel obstruction with sigmoid adenocarcinoma- Path confirms adenocarcinoma
His last colonoscopy was in 2019 at [place]
NGT out and on solid diet;having BM
Status post colonoscopy by Dr. Garcia-stricture in the sigmoid-biopsied and stent placed 04/02/2024
Currently on ceftriaxone and Flagyl-patient's on admission had a leukocytosis. His CT also showed colonic wall thickening in the sigmoid area which could be the metastatic disease itself but he also had a perisigmoidal nodularity and small volume
ascites. Resolved leukocytosis with antibiotics. Finished 7 days of antibiotic course.
# 2.8 cm superior right hepatic lobe lesion-possible metastatic lesion. CRS requesting IR bx - BX cancel at is it not easily accessible per IR. MR imaging report noted. No plans for BX. PET as OP
# Distal esophageal stricture/wall thickening-needs endoscopy at some point
# Acute PE -staging CT chest with IV contrast shows no evidence of pulmonary met but incidental note is made of pulmonary embolus involving the lateral segmental branch of the right lower lobe pulmonary artery. He is asymptomatic without chest pain
or shortness of breath. cw IV heparin for anticoagulation -switch to oral Eliquis today as no plans for intervention. Slow H&H drop noted without obvious external bleeding. Repeat H&H today and if stable will switch to Eliquis.
# Acute DVT - US shows Positive occlusive thrombus within the left gastrocnemius veins, in this patient with known pulmonary embolism. CW AC.Will switch to oral Eliquis which is not cost prohibitive on dc.
# Severe hyponatremia
Secondary to prerenal causes
Sodium better with 3% saline
Sodium has normalized
Nephrology evaluation appreciated
# History of ulcerative colitis- Last colonoscopy was in 2019. Stopped following up at [place] as it was too far.
Discussed about the importance of colonoscopy in IBD.
# 20 lb weight loss
# Ex-smoker
# Full code
Will discuss with involved subspecialists and if no plan for any further interventions will switch to oral Eliquis after H&H checked today and discharge patient home.
Total time of discharge 35 minutes
Anticipated Discharge: Today
Subjective/Interval History
-
Date of Service: April 09, 2024
Tolerating solid diet without any abdominal pain, nausea or vomiting.
Voicing no specific complaints.
Denies any lightheadedness or dizziness.
Objective Data
-
Labs:
Laboratory Results
04/08/24 04/09/24
23:34 06:28
APTT 101.1 H 84.7 H
Vital Signs:
Vital Signs
Temp Pulse Resp BP Pulse Ox
98.4 F 88 17 104/62 98
04/09/24 07:33 04/09/24 07:33 04/09/24 07:33 04/09/24 07:33 04/09/24 08:15
I&O
04/08/24 04/09/24 04/10/24
06:59 06:59 06:59
Intake Total 840 / 840 1400 / 1400
Output Total 400 / 400
Balance 440 / 440 1400 / 1400
Review of Systems
-
Constitutional: Denies Fever
Respiratory: Denies Trouble Breathing
Cardiac: Denies Chest Pain
Physical Exam
-
General: No Apparent Distress
HEENT: Moist Mucous Membranes
Respiratory: Clear to Auscultation
Cardiac: Regular Rhythm and S1/S2
GI: Soft, Nontender, Nondistended and Normal Bowel Sounds
Neuro: AO x 3
--- NOTE | 2024-04-09 11:32 | W.PN.CRS1 ---
Today's Communication / Plan
-
Dispo per primary team
Follow-up with colorectal surgery as an outpatient
Assessment/Plan
-
69-year-old male, denies any PMH (admitted part-way into admission that he has a h/o UC, off meds since 2019 and not following with his previous GI at [facility]), who presents with significant bloating and abdominal pain for 2 days. This is never
happened to him before. It started with the bloating and belching 2 days ago, and developed into severe dull abdominal pain. He denies any nausea or vomiting, SOB/CP. His last BM was this morning, but he has not been passing flatus for few days.
His last colonoscopy was in 2019 at [facility], which she reports demonstrated 1 benign polyp. In the ED, his WBC was 17.6, he was initially tachycardic, but improved with fluids, afebrile. A CT scan showed a sigmoid mass associated with large bowel
obstruction as well as a 2.8 cm liver lesion. An NG tube was placed.
S/p successful colonic stent 22mm x9cm placed
AFVSS
Labs pending
� Large bowel obstruction due to sigmoid mass in setting of UC, concerning for cancer; s/p colonic stent
-path - adenocarinoma, discussed with patient this MA
�staging:
-CTAP - perisigmoid nodularity c/f LAD vs soft tissue mets, 2.8 cm liver lesion; plan for IR today for biopsy of liver lesion
-CT chest - no mets, incidental segmental PE
-MRI abdomen shows 3 liver mets
-CEA 61.4
-Appreciate hem/onc consult
� Low residue diet
� Pain control, minimize narcotics
� On hep drip
� Appreciate hospitalist
-No plans for surgery during this admission. Okay for discharge from our perspective medically cleared. Will follow-up in our office in a few weeks. Follow-up with hematology oncology as an outpatient.
Subjective Data
Subjective Data
Date of Service: April 09, 2024
Patient states he is having bowel movements. His bowel softer. His abdomen is nondistended. He has no abdominal pain.
Objective Data
-
Vital Signs
Temp Pulse Resp BP Pulse Ox
98.4 F 88 17 104/62 98
04/09/24 07:33 04/09/24 07:33 04/09/24 07:33 04/09/24 07:33 04/09/24 08:15
Intake & Output
04/08/24 04/09/24 04/10/24
06:59 06:59 06:59
Intake Total 840 / 840 1400 / 1400
Output Total 400 / 400
Balance 440 / 440 1400 / 1400
Intake:
Oral fluids 840 / 840 840 / 840
IV piggybacks 560 / 560
Output:
Urine, Voided 400 / 400
Other:
Number of approximated MODERATE 2 3
amounts of urine
Number of approximated LARGE 2
amounts of urine
Number of unmeasured liquid
stools
Rectum 4
Lab Results
04/06/24 04:24
Physical Exam
-
General: No Acute Distress and AOx3
Abdomen: Soft, Non Distended and Non Tender
Skin: Warm and Dry
[2024-04-09 11:35] LABS: Hemoglobin 10.6 g/dL (13.0-18.0); Mean Corp Hgb Conc. 34.2 g/dL (33.0-37.0); Mean Corpuscular Hgb 30.4 pg (27.0-31.0); Mean Corpuscular Volume 88.8 fL (80.0-94.0); Mean Platelet Volume 10.2 fL (7.4-10.4); Platelet Count 468 10^3/uL (130-400); Red Blood Cell Count 3.49 10^6/uL (4.70-6.10); Red Cell Dist. Width 14.9 % (11.5-14.5); White Blood Cell Count 9.6 10^3/uL (4.8-10.8)
[2024-04-09 15:29] VITALS: BP 111/67
--- NOTE | 2024-04-09 16:17 | W.DS.TRANS ---
DC Summary - Physician General Internal Medicine
-
Discharge Instructions:
Discharge Diagnosis/Procedures Colon cancer with obstructing sigmoid mass
status post colon stent; DVT, right lower lobe
PE, liver lesions.
Diet Low Residue
Activity As tolerated
Driving Restrictions Not until seen by your Dr
Bathing Restrictions None
Instructions:
Stand-Alone Forms:
Changes to Home Medications: Yes
Discharge Medications:
DC Medications w/original date entered in Medicine in Practice
ascorbic acid (vitamin C) 500 mg tablet (Vitamin C) 500 mg PO DAILY Supplement 04/01/24
calcium carbonate (Calcium 600) 600 mg PO DAILY Supplement 04/01/24
cholecalciferol (vitamin D3) 25 mcg (1,000 unit) tablet (Vitamin D3) 25 mcg PO DAILY Supplement 04/01/24
cyanocobalamin (vitamin B-12) 1,000 mcg tablet 1,000 mcg PO DAILY Supplement 04/01/24
magnesium oxide 400 mg PO DAILY Supplement 04/01/24
zinc sulfate 50 mg zinc (220 mg) tablet 50 mg PO DAILY Supplement 04/01/24
acetaminophen 325 mg tablet 650 mg (2 x 325 mg) PO Q4HPRN PRN mild pain #1 tab 04/09/24
apixaban 5 mg tablet (Eliquis) 5 mg PO BID #72 tabs 04/09/24
Home Medication Changes
New -Eliquis
Pending Results: No
[2024-04-09] MEDS: ELIQUIS 10 MG PO (17:49)
== END 2024-04-09 18:05 | disposition home or self-care (01) | DRG 374 ==
LOC: 3 WEST ACU 17:02
PROVIDERS: Nurse Practitioner Family; Physician Assistant; Registered Nurse; Specialist; ADMITTING PHYSICIAN Internal Medicine; CONSULT PHYSICIAN Internal Medicine; CONSULT PHYSICIAN Internal Medicine Hematology & Oncology; CONSULT PHYSICIAN Surgery; EMERGENCY PHYSICIAN Student in an Organized Health Care Education/Training Program; FAMILY PHYSICIAN Family Medicine; OTHER PHYSICIAN Internal Medicine Gastroenterology
PROC: 0D7E8DZ Dilation of Large Intestine with Intraluminal Device, Via Natural or Artificial Opening Endoscopic (ICD-10-PCS; 2024-04-02)
PROC: 0DBN8ZX Excision of Sigmoid Colon, Via Natural or Artificial Opening Endoscopic, Diagnostic (ICD-10-PCS; 2024-04-02)
DX: C18.9 Malignant neoplasm of colon, unspecified (principal); I26.99 Other pulmonary embolism without acute cor pulmonale; K56.699 Other intestinal obstruction unspecified as to partial versus complete obstruction; E87.1 Hypo-osmolality and hyponatremia; R18.8 Other ascites; C78.7 Secondary malignant neoplasm of liver and intrahepatic bile duct; Z87.891 Personal history of nicotine dependence; K64.9 Unspecified hemorrhoids
CPT/HCPCS: 88305; 71260; 74018; 74019; 74177; 74183; 76000; 80048; 80053; 82378; 82533; 82607; 82728; 83540; 83550; 83690; 83735; 83930; 83935; 84134; 84295; 84300; 84443; 85025; 85027; 85610; 85730; 86140; 86803; 86850; 86900; 86901; 87040; 88342; 93005; 93970; 96374; 99285; A9575; C1769; C1876; Q9967

== ENCOUNTER 2024-05-12 06:30 | Day surgery (SDC) | payer MEDICARE, SELFPAY ==
[2024-05-12] VITALS (13 sets, daily range): BP systolic 91–113; BP diastolic 50–64; BMI 15.5
[2024-05-12] MEDS: NORMOSOL-R/PLASMALYTE-A 1000 IV (12:40)
[2024-05-12] MEDS: TYLENOL 1000 MG PO (12:40)
--- NOTE | 2024-05-12 15:30 | W.IMMPOSTOP ---
Surgical Immed Post Op Note
-
Primary Surgeon: Jeffrey Zhao MD
Assisting Surgeon: None
Pre-op Diagnosis: Stage IV colon cancer
Post-op Diagnosis: Stage IV colon cancer
Procedure Performed: Left subclavian Mediport insertion
Anesthesia Type: Sedation with local
Specimen / Cultures: None
Estimated Blood Loss: 10 mL
Complications: None
Operative Findings: Tip of port catheter at cavoatrial junction with good withdrawal of blood and easy flush
--- NOTE | 2024-05-12 15:33 | OR.RPT ---
Operative Report
Operative Report
DATE OF OPERATION: 05/12/2024
SURGEON: Jeffrey Zhao MD
PREOPERATIVE DIAGNOSIS: Stage 4 colon cancer
POSTOPERATIVE DIAGNOSIS: Stage 4 colon cancer
OPERATION: Left subclavian Mediport insertion
ASSISTANTS:
1. None
ANESTHESIA: MAC w/ local
ESTIMATED BLOOD LOSS: 10 mL
FINDINGS:
1. After placement, the tip of port catheter visualized at level of the cavoatrial junction on fluoroscopy
2. Once sutured in position, port tested with Germain needle and there was good withdrawal of blood and instillation of heparinized saline without resistance
SPECIMENS: None
DRAINS: None
COMPLICATIONS: No immediate complications.
INDICATIONS: The patient is a 69-year-old male with stage 4 colon cancer. Infusional chemotherapy was recommended. Therefore, I recommended port placement. The operation was discussed with the patient in detail including risks and benefits. Risks
discussed included, but are not limited to, bleeding, infection, pneumothorax, post-operative malposition or movement of catheter, need for second surgery, DVT/PE, and anesthetic risks. The patient understood and agreed to proceed. The consent was
signed and placed in the chart.
PROCEDURE: Patient was taken to the operating room and placed on the operating table in supine position. Sequential compression devices were placed bilaterally. Sedation was commenced without complication. Bilateral arms were tucked and the head
was tilted toward the right. The left neck and chest wall area were prepped and draped in a sterile fashion. A time-out was then performed verifying the correct patient, procedure, operative site, positioning, and special equipment.
The patient was then placed in Trendelenburg position. Local anesthetic consisting of 1% lidocaine with epinephrine was used to numb the skin and soft tissue near the angle of the left clavicle. Then using bony landmarks as a guide, I passed the
needle with 10mL syringe under the left collar bone in the direction of the sternal notch while simultaneously aspirating. On the first pass, good venous return was noted indicating that I had accessed the left subclavian vein. Under fluoroscopic
guidance a guidewire was passed through the needle into the patient down to the superior vena cava. This went smoothly.
The needle was removed over the guidewire and a skin opening was enlarged with an 11 blade scalpel. Next, I advanced the dilator and peel-away sheath together over the guidewire into the patient. This went smoothly as well. Next, the guidewire and
inner dilator were removed leaving the outer sheath in place. I advanced the white tubing through the outer sheath into the patient under fluoroscopic guidance to the superior vena cava near the right atrium. Next, the outer sheath was peeled away
while maintaining the white tubing in place.
I injected more 1% lidocaine with epinephrine into the planned subcutaneous port pocket. Using a 15 blade scalpel, I made a 4cm incision over the chest wall. A subcutaneous pocket was created inferiorly to the incision with a combination of Bovie
electrocautery and blunt dissection. There was good hemostasis. The white tubing was connected to the tunneling device and brought through a newly created tunnel to the pocket area, taking care to avoid kinking of the tube. The white tubing was
trimmed, connected to the the port reservoir and secured with the locking mechanism. The port reservoir was accessed with good venous return and flushed with heparinized saline. One last round of fluoroscopy was performed. The tip of the white
tubing was at the level of the superior vena cava and there was no kink in the tubing.
The reservoir was then secured to the chest wall within the pocket with two 3-0 Prolene stitches. The subcutaneous layer was closed with deep dermal interrupted 3-0 Vicryl and the skin was closed with a running subcuticular 4-0 Vicryl. The remaining
local was injected around the subcutaneous pocket, port incision and stab incision. Dermabond was used to dress the port incision and stab incision.
At this point, the procedure was complete. All sponge, needle and instrument counts were correct. The patient tolerated the procedure well and was transferred to the recovery room in stable condition. A portable chest x-ray was ordered in recovery
to confirm port position and rule-out pneumothorax.
DICTATED BY: Jeffrey Zhao MD
== END 2024-05-12 18:18 | disposition home or self-care (01) ==
LOC: SDS 06:30
PROVIDERS: ATTENDING PHYSICIAN Surgery
DX: C18.9 Malignant neoplasm of colon, unspecified (principal)
CPT/HCPCS: 36561; 71045; 76000; C1788

== ENCOUNTER → 2024-07-30 16:40 | Outpatient (REF) | payer MEDICARE, SELFPAY ==
[2024-07-30 14:36] LABS: Mean Corp Hgb Conc. 32.3 g/dL (33.0-37.0); Mean Corpuscular Hgb 30.4 pg (27.0-31.0); Mean Corpuscular Volume 94.2 fL (80.0-94.0); Mean Platelet Volume 9.4 fL (7.4-10.4); Platelet Count 350 10^3/uL (130-400); Red Blood Cell Count 3.29 10^6/uL (4.70-6.10); Red Cell Dist. Width 21.5 % (11.5-14.5); White Blood Cell Count 4.6 10^3/uL (4.8-10.8)
[2024-07-30 16:01] LABS: Absolute Neutrophils -Man Diff 2.1 10^3/uL (1.4-6.5); Band Neutrophils 0 % (0-3); Lymphocytes 23 % (20-51); Monocytes 31 % (2-9); Segmented Neutrophils 46 % (42-75)
[2024-07-30 16:02] LABS: Normal RBC Morphology No; Platelets Checked Yes; Total Cells Counted 100
[2024-07-30 16:04] LABS: Anisocytosis 2+; Macrocytosis 2+; Poikilocytosis 1+; Target Cells 1+
[2024-07-30 16:05] LABS: Acanthocytes Slight; Burr Cells 1+
== END ==
LOC: OIDL 16:40
PROVIDERS: ATTENDING PHYSICIAN Internal Medicine Hematology & Oncology
DX: C18.7 Malignant neoplasm of sigmoid colon (principal)
CPT/HCPCS: 85025

== ENCOUNTER → 2024-10-08 16:18 | Outpatient (REF) | payer MEDICARE, SELFPAY ==
[2024-10-08 14:41] LABS: % Basophils 0.1 % (0-2); % Eosinophils 0.4 % (0-6); % Immature Granulocytes 11.5 % (0-0.5); % Monocytes 0.9 % (1.7-9.3); % Neutrophils 68.1 % (42.2-75.2); Absolute Eosinophils 0.1 10^3/uL (0-0.7); Absolute Immature Granulocytes 2.2 10^3/uL (0-0.05); Absolute Lymphocytes 3.6 10^3/uL (1.2-3.4); Absolute Monocytes 0.2 10^3/uL (0.1-0.6); Absolute Neutrophils 12.8 10^3/uL (1.4-6.5); Hematocrit 24.7 % (39.0-52.0); Hemoglobin 7.8 g/dL (13.0-18.0); Mean Corp Hgb Conc. 31.6 g/dL (33.0-37.0); Mean Corpuscular Hgb 28.7 pg (27.0-31.0); Mean Corpuscular Volume 90.8 fL (80.0-94.0); Mean Platelet Volume 8.8 fL (7.4-10.4); Platelet Count 413 10^3/uL (130-400); Red Blood Cell Count 2.72 10^6/uL (4.70-6.10); Red Cell Dist. Width 16.9 % (11.5-14.5); White Blood Cell Count 18.8 10^3/uL (4.8-10.8)
== END ==
LOC: OIDL 16:18
PROVIDERS: ATTENDING PHYSICIAN Nurse Practitioner Primary Care
DX: C18.7 Malignant neoplasm of sigmoid colon (principal)
CPT/HCPCS: 85025

== ENCOUNTER → 2024-10-25 12:42 | Outpatient (REF) | payer MEDICARE, SELFPAY ==
[2024-10-25 13:04] LABS: % Basophils 0.2 % (0-2); % Eosinophils 0.7 % (0-6); % Immature Granulocytes 2.5 % (0-0.5); % Lymphocytes 15.6 % (20.5-51.1); % Monocytes 12.5 % (1.7-9.3); % Neutrophils 68.5 % (42.2-75.2); Absolute Eosinophils 0.1 10^3/uL (0-0.7); Absolute Immature Granulocytes 0.4 10^3/uL (0-0.05); Absolute Lymphocytes 2.5 10^3/uL (1.2-3.4); Absolute Neutrophils 10.9 10^3/uL (1.4-6.5); Hematocrit 25.8 % (39.0-52.0); Hemoglobin 8.3 g/dL (13.0-18.0); Mean Corp Hgb Conc. 32.2 g/dL (33.0-37.0); Mean Corpuscular Hgb 28.3 pg (27.0-31.0); Mean Corpuscular Volume 88.1 fL (80.0-94.0); Mean Platelet Volume 8.3 fL (7.4-10.4); Platelet Count 488 10^3/uL (130-400); Red Blood Cell Count 2.93 10^6/uL (4.70-6.10); Red Cell Dist. Width 18.9 % (11.5-14.5); White Blood Cell Count 15.9 10^3/uL (4.8-10.8)
[2024-10-25 13:45] LABS: ALT (SGPT) 13 U/L (0-50); AST (SGOT) 17 U/L (17-59); Albumin 3.2 g/dl (3.5-5.0); Alkaline Phosphatase 242 U/L (38-126); Blood Urea Nitrogen 10 mg/dl (9-20); Calcium 9.5 mg/dl (8.4-10.2); Carbon Dioxide 29 mmol/L (22-30); Chloride 98 mmol/L (98-107); Glucose 113 mg/dl (70-99); Potassium 4.4 mmol/L (3.5-5.1); Sodium 136 mmol/L (135-145); Total Bilirubin 0.4 mg/dl (0.2-1.3); Total Protein 6.6 g/dl (6.3-8.2); eGFR > 60.00
[2024-10-25 19:34] LABS: CEA 42.3 ng/ml
== END ==
LOC: OIDL 12:42
PROVIDERS: ATTENDING PHYSICIAN Internal Medicine Hematology & Oncology; FAMILY PHYSICIAN Family Medicine
DX: D50.8 Other iron deficiency anemias (principal); D64.81 Anemia due to antineoplastic chemotherapy; I26.99 Other pulmonary embolism without acute cor pulmonale; C18.7 Malignant neoplasm of sigmoid colon
CPT/HCPCS: 36415; 80053; 82378; 85025

== ENCOUNTER → 2024-11-08 12:47 | Outpatient (REF) | payer MEDICARE, SELFPAY ==
[2024-11-08 14:01] LABS: ALT (SGPT) 14 U/L (0-50); AST (SGOT) 17 U/L (17-59); Albumin 3.2 g/dl (3.5-5.0); Alkaline Phosphatase 261 U/L (38-126); Blood Urea Nitrogen 11 mg/dl (9-20); Calcium 10.5 mg/dl (8.4-10.2); Carbon Dioxide 32 mmol/L (22-30); Chloride 97 mmol/L (98-107); Glucose 128 mg/dl (70-99); Potassium 4.1 mmol/L (3.5-5.1); Sodium 135 mmol/L (135-145); Total Bilirubin 0.4 mg/dl (0.2-1.3); Total Protein 6.5 g/dl (6.3-8.2); eGFR > 60.00
[2024-11-08 14:24] LABS: Hematocrit 24.4 % (39.0-52.0); Hemoglobin 7.6 g/dL (13.0-18.0); Mean Corp Hgb Conc. 31.1 g/dL (33.0-37.0); Mean Corpuscular Hgb 27.6 pg (27.0-31.0); Mean Corpuscular Volume 88.7 fL (80.0-94.0); Mean Platelet Volume 9.4 fL (7.4-10.4); Platelet Count 487 10^3/uL (130-400); Red Blood Cell Count 2.75 10^6/uL (4.70-6.10); Red Cell Dist. Width 19.1 % (11.5-14.5); White Blood Cell Count 5.9 10^3/uL (4.8-10.8)
[2024-11-08 14:29] LABS: Absolute Neutrophils -Man Diff 2.3 10^3/uL (1.4-6.5); Band Neutrophils 4 % (0-3); Eosinophils 3 % (0-6); Lymphocytes 31 % (20-51); Monocytes 24 % (2-9); Segmented Neutrophils 35 % (42-75)
[2024-11-08 14:30] LABS: Atypical Lymphocytes 3 %; Normal RBC Morphology No; Platelets Checked Yes
[2024-11-08 14:31] LABS: Anisocytosis 2+
[2024-11-08 14:32] LABS: Acanthocytes Slight; Burr Cells Slight; Hypochromasia 2+; Macrocytosis 1+; Ovalocytes 1+; Poikilocytosis Slight; Polychromasia Slight; Total Cells Counted 100
== END ==
LOC: OIDL 12:47
PROVIDERS: ATTENDING PHYSICIAN Internal Medicine Hematology & Oncology; FAMILY PHYSICIAN Family Medicine
DX: C18.7 Malignant neoplasm of sigmoid colon (principal); I26.99 Other pulmonary embolism without acute cor pulmonale; D64.81 Anemia due to antineoplastic chemotherapy; D50.8 Other iron deficiency anemias
CPT/HCPCS: 36415; 80053; 85025

== ENCOUNTER 2024-11-15 09:54 | Outpatient (RCR) | payer MEDICARE, SELFPAY ==
[2024-11-12 15:05] LABS: % Eosinophils 0.2 % (0-6); % Lymphocytes 15.7 % (20.5-51.1); % Monocytes 0.5 % (1.7-9.3); % Neutrophils 73.6 % (42.2-75.2); Absolute Eosinophils 0.1 10^3/uL (0-0.7); Absolute Immature Granulocytes 2.1 10^3/uL (0-0.05); Absolute Lymphocytes 3.2 10^3/uL (1.2-3.4); Absolute Monocytes 0.1 10^3/uL (0.1-0.6); Absolute Neutrophils 15.2 10^3/uL (1.4-6.5); Hematocrit 25.7 % (39.0-52.0); Hemoglobin 7.9 g/dL (13.0-18.0); Mean Corp Hgb Conc. 30.7 g/dL (33.0-37.0); Mean Corpuscular Hgb 27.5 pg (27.0-31.0); Mean Corpuscular Volume 89.5 fL (80.0-94.0); Mean Platelet Volume 9.2 fL (7.4-10.4); Platelet Count 300 10^3/uL (130-400); Red Blood Cell Count 2.87 10^6/uL (4.70-6.10); Red Cell Dist. Width 19.2 % (11.5-14.5); White Blood Cell Count 20.6 10^3/uL (4.8-10.8)
[2024-11-15 10:10] VITALS: BP 128/68
[2024-11-15 10:32] VITALS: BP 128/68
[2024-11-15 10:53] VITALS: BP 102/57
[2024-11-15 12:49] VITALS: BP 105/58
== END 2024-12-01 23:59 | disposition home or self-care (01) ==
LOC: OID 09:54
PROVIDERS: ATTENDING PHYSICIAN Internal Medicine Hematology & Oncology
DX: C18.7 Malignant neoplasm of sigmoid colon (principal); D73.2 Chronic congestive splenomegaly; D64.81 Anemia due to antineoplastic chemotherapy; D50.8 Other iron deficiency anemias
CPT/HCPCS: 36430; 85025; 86850; 86900; 86901; 86920; P9016

== ENCOUNTER → 2024-12-01 10:01 | Outpatient (REF) | payer MEDICARE, SELFPAY ==
[2024-12-01 11:49] LABS: Iron 25 ug/dl (49-181)
== END ==
LOC: OIDL 10:01
PROVIDERS: ATTENDING PHYSICIAN Internal Medicine Hematology & Oncology
DX: C18.7 Malignant neoplasm of sigmoid colon (principal); I26.99 Other pulmonary embolism without acute cor pulmonale; D64.81 Anemia due to antineoplastic chemotherapy; D50.8 Other iron deficiency anemias
CPT/HCPCS: 82728; 83540

== ENCOUNTER 2024-12-10 17:38 | Inpatient (IN) | payer MEDICARE, SELFPAY ==
[2024-12-10] VITALS (8 sets, daily range): BP systolic 94–136; BP diastolic 56–83; BMI 13.1; BMI 12.8
--- NOTE | 2024-12-10 13:58 | ED.GENMED ---
History of Present Illness
General
Chief Complaint: Weakness
Source: patient and records
Time Seen by Provider: 12/10/24 13:50
History of Present Illness
History of Present Illness:
69-year-old male with past medical history of adenocarcinoma of the colon with metastases to the liver presenting to the emergency department for evaluation of generalized fatigue/weakness that has been gradually worsening over the last few weeks,
contacted the ambulance today due to being able to get up out of bed. Patient has no focal symptoms, notes that he does have a little bit of diarrhea which is attributed to his chemotherapy regimen with last infusion being about 3 weeks ago.
Patient notes that the diarrhea is usually improved after taking Imodium but notes the diarrhea is usually only at nighttime. He denies any fevers, chills, rigors, nausea, vomiting, urinary symptoms, URI-like symptoms or any other concerns. In
November records show patient had a hemoglobin of 7.9 and oncology recommended a transfusion but patient had declined. Patient does state that about 3 weeks ago he does believe he had a blood transfusion. Patient denies any blood in his stool. No
other concerns at this time.
Past History
Past History
ED Past Medical History: Other (Ulcerative colitis ); Negative Asthma, HTN, Hypercholesterolemia or NIDDM
ED Past Surgical History: Other (Hernia)
Social History
Tobacco: Former smoker
Alcohol: None
Drug: None
Personal:
Living: with family
Employment: Employed
Family History
Family History: Negative Early CAD
Review of Systems
Review of Systems
All Other Systems: ROS reviewed and negative except as documented in HPI and ROS
Phy Exam
Physical Exam
Physical Exam:
GENERAL: Alert , in no apparent distress, dry mucous membranes, emaciated and very thin
EYE: clear conjunctiva b/l
HEAD: NCAT
ENT: o/p clr,
CARDIAC: Tachycardic rate and rhythm around 115 bpm
LUNGS: Clear breath sounds bilaterally, no acute respiratory distress, no wheezes/rales/rhonchi, chest port to the left anterior chest wall without any signs of infection
ABDOMEN: Soft, without focal tenderness, no r/g, no cvat,
NEUROLOGICAL: Alert and oriented
SKIN: Warm and dry, skin intact.
MUSCULOSKELETAL: No edema, well perfused.
PSYCH: Normal and appropriate interaction.
Scores
Heart Failure Risk
Heart Failure Risk Score: Not Applicable
Heart Score for Chest Pain Patients
STEMI patient?: Not applicable
Withdrawal Assessment of Alcohol
Withdrawal Assessment Completed?: Not applicable
Course
Orders/Labs/Results
Orders:
Orders
12/10/24 13:55
0.9% Sodium Chloride 1000 ml [Nss] 1,000 ml IV BOLUS
12/10/24 13:56
Electrocardiogram (*1) Urgent
Reason for Study: Fatigue / Weakness
EKG- Treatment ONCE
12/10/24 Dinner
Regular
At Your Request: Full Participation
Oral Supplement (If unsure of flavor order apple or vanilla): Ensure High Protein
Supplement Frequency: TID
12/10/24 15:44
Type+Screen Urgent
Complete Blood Count/With Diff Urgent
Comprehensive Metabolic Panel Urgent
PTT Urgent
Prothrombin Time Urgent
12/10/24 16:07
0.9% Sodium Chloride 1000 ml [Nss] 1,000 ml IV BOLUS
12/10/24 16:08
Urinalysis Reflex To Culture Urgent
Date Specimen was Collected: 12/10/24
Time Specimen was Collected: 16:13
CR Chest Portable - 1 View Urgent
Comment:
Reason For Exam: sepsis eval
Reason Study Needs to be Portable: Patient Unstable
12/10/24 16:24
0.9% Sodium Chloride 500 ml [Nss] 500 ml IV BOLUS
12/10/24 16:25
Lactic Acid Q4H
Comment: CANCEL 2nd LACTIC ACID IF 1st LACTIC ACID IS LESS THAN 2
Blood Culture Q30M
FELIBERTO Source: Blood/Venous
Specimen Description:
Blood Culture Q30M
FELIBERTO Source: Blood/Venous
Specimen Description:
12/10/24 16:33
Cefepime HCl [Maxipime] 1,000 mg IV NOW STA
12/10/24 16:43
Sterile Water [Sterile Water For Injection] 10 ml .ROUTE .K-MED ONE
12/10/24 17:03
Admit/Transfer Patient As Directed
Co-Sign Provider:
Level of Care: Inpatient admission
Assign to:: Telemetry
Physician / Group: Hospitalist: Eleazar
Diagnosis: Hypercalcemia of malignancy
Reason for Telemetry: Other
Other Reason for Telemetry: Severe electrolyte derangement
Date to Stop Telemetry: 12/12/24
Time to Stop Telemetry: 11:00
Reason for Hospitalization: Hypercalcemia of malignancy
Expected length of stay greater than two midnights?: Yes
ELOS- Estimated Length of Stay in days: 3
I certify the patient meets the requirements for IP care: Yes
12/10/24 17:04
PRN Pain Medication Management As Directed
May give lesser potent ordered pain med per pt: Yes
preference::
Protocol:: Medication orders for pain may be administered in a
manner that supports deferring to patient preference
when the pt is:
- Requesting an ordered lesser potent pain medication.
Least to most potent pain medications are defined
as: acetaminophen < NSAID < tramadol < opioids
(morphine, oxycodone, hydromorphone).
- Requesting a lesser dose of the same medication IF
ORDERED.
- Requesting a less intrusive route of administration
if both routes are prescribed by the provider (PO <
IV).
12/10/24 17:06
Code Status As Directed
Resuscitation Status: Full Code
12/10/24 17:12
ONCOLOGY CONSULT Routine
Consulting Provider: Mich Herrera
Was physician already notified: Yes
Reason for consult: Hypercalcemia of malignancy, patient known to your service
12/10/24 17:32
Loperamide [Imodium] 2 mg PO Q4HPRN PRN
12/10/24 17:36
Add On- LAB Routine
Tests Added?: ionized calcium, please and thank you!
12/10/24 17:47
Zoledronic Acid [Zometa] 4 mg 0.9% Sodium Chloride 100 ml [Nss] 100 ml IV ONCE
12/10/24 18:17
0.9% Sodium Chloride 1000 ml [Nss] 1,000 ml IV 100 mls/hr
Acetaminophen [Tylenol] 650 mg PO Q4HPRN PRN
Docusate W/Senna [Senokot-S] 1 tablet PO BIDPRN PRN
Ondansetron Injectable [Zofran] 4 mg IV Q6HPRN PRN
12/10/24 18:17
Activity As Directed
Activity Level: As Tolerated
Vital Signs As Directed
Frequency: Per unit guidelines
12/10/24 20:00
Apixaban [Eliquis] 2.5 mg PO BID
12/11/24 00:00
Cefepime HCl [Maxipime] 1,000 mg IV Q8H
12/11/24 06:00
BMP [Basic Metabolic Panel] IN AM
CBC/With Diff [Complete Blood Count/With Diff] IN AM
Magnesium IN AM
Phosphorus IN AM
12/12/24 06:00
BMP [Basic Metabolic Panel] IN AM
CBC/With Diff [Complete Blood Count/With Diff] IN AM
Magnesium IN AM
Phosphorus IN AM
12/12/24 11:00
DC Protocol for Telemetry ONCE
12/13/24 06:00
BMP [Basic Metabolic Panel] IN AM
CBC/With Diff [Complete Blood Count/With Diff] IN AM
Magnesium IN AM
Phosphorus IN AM
Abnormal Lab Results
12/10/24
15:44
WBC 21.8 H 10^3/uL
(4.8-10.8)
RBC 2.52 L 10^6/uL
(4.70-6.10)
Hgb 7.1 L g/dL
(13.0-18.0)
Hct 21.9 L %
(39.0-52.0)
MCHC 32.4 L g/dL
(33.0-37.0)
RDW 20.6 H %
(11.5-14.5)
Abs Immat Gran (auto) 0.1 H 10^3/uL
(0-0.05)
Absolute Neuts (auto) 18.8 H 10^3/uL
(1.4-6.5)
Absolute Monos (auto) 1.6 H 10^3/uL
(0.1-0.6)
Immature Gran % 0.6 H %
(0-0.5)
Neutrophils % 86.4 H %
(42.2-75.2)
Lymphocytes % 5.6 L %
(20.5-51.1)
PT 16.5 H Sec
(11.4-14.6)
APTT 41.0 H Sec
(23.4-35.0)
Sodium 134 L mmol/L
(135-145)
Carbon Dioxide 32 H mmol/L
(22-30)
Glucose 113 H mg/dl
(70-99)
Calcium 12.6 H mg/dl
(8.4-10.2)
Alkaline Phosphatase 612 H U/L
(38-126)
Total Protein 6.1 L g/dl
(6.3-8.2)
Albumin 2.6 L g/dl
(3.5-5.0)
12/10/24 15:44
12/10/24 15:44
Vital Signs
Initial and Last Documented VS:
Initial Vital Signs
Temp Pulse Resp BP Pulse Ox
98.7 F 116 22 108/66 100
12/10/24 13:53 12/10/24 13:53 12/10/24 13:53 12/10/24 13:53 12/10/24 13:53
Last Documented Vital Signs
Temp Pulse Resp BP Pulse Ox
98.7 F 81 16 97/67 98
12/10/24 13:53 12/10/24 18:00 12/10/24 18:00 12/10/24 18:00 12/10/24 17:30
MDM/Problems Addressed
Differential Diagnosis Includes:
Anemia, electrolyte derangement, infection considered given patient's immunocompromised however he is without any infectious symptoms or fevers
MDM/Problems Addressed:
69-year-old male presenting to the ER for evaluation of generalized weakness. Symptoms gradually worsening over the last couple of weeks, today unable to get up and out of bed. Currently being treated actively for colon cancer with liver
metastases. Last chemo regimen was 3 weeks ago. Patient tachycardic and borderline hypotensive here. Will treat with fluids. Less concern for infectious etiology. Concern for either electrolyte derangement or worsening anemia which would likely
need blood transfusion. Anticipate admission.
Chronic conditions affecting care: Cancer
Acute Exacerbation and/or Progression of Chronic Illness: Cancer
*Radiology
Radiology exam reviewed: radiology read reviewed
*Pulse Oximetry
Patient hypoxic: no
*EKG
Heart Rate: 107
Rate: tachycardiac
Rhythm: sinus
[place]: normal axis
Ischemia: no ischemia
*Home Service Technician Interpretation
Rate: tachycardiac
Rhythm: sinus
*Critical Care Note
Total Time (30-74mins, 75-104mins- exclusive of procedures): Not Applicable
Patient Management
Discussion with other providers: Hospitalist
Escalation/DeEscalation of care consider admission/obs:
Following IV fluids/sepsis fluid bolus patient's heart rate much improved. Blood pressure remains soft. He does have a significant leukocytosis with a leftward shift. Hemoglobin is 7.1. Baseline seems to be right around 7.7 so I do not suspect
his weakness is likely acutely related to this slight drop in his hemoglobin. Hypercalcemia likely secondary to cancer process. Broad-spectrum Maxipime ordered in case of infectious etiology. Hospitalist team aware and accepts for continued
evaluation and treatment.
ED Attending Note
-
Portions of this chart may have been created with voice recognition software.� Occasional wrong word or��sound alike� substitutions may have occurred due to the inherent limitations of voice recognition software.
Discharge Plan
Departure
Patient Disposition: Admit
Date of Disposition: 12/10/24
Time of Disposition: 16:35
Presentation/result/management discussed w/ accepting MD/DO: Hospitalist
Discharge Problem:
Generalized weakness, Anemia, Hypercalcemia
Interventions
Interventions:
*Risk Screen - Suicide Last Done: 12/10/24 13:56
*General Assessment Last Done: 12/10/24 14:08
*Neglect/Abuse Screening Last Done: 12/10/24 14:08
*ED- Fall Risk Assessment Last Done: 12/10/24 14:08
*ED COVID-19 Vaccine History Last Done: 12/10/24 14:02
*Nursing Disposition Last Done: 12/10/24 18:09
ED- Cardiac Assessment Last Done: 12/10/24 14:08
ED- Neurological Assessment Last Done: 12/10/24 14:08
ED- Pulmonary Assessment Last Done: 12/10/24 14:08
Discharge Date and Time
Discharge Date/Time: 12/10/24 18:10
[2024-12-10 15:56] LABS: % Immature Granulocytes 0.6 % (0-0.5); % Lymphocytes 5.6 % (20.5-51.1); % Monocytes 7.4 % (1.7-9.3); % Neutrophils 86.4 % (42.2-75.2); Absolute Immature Granulocytes 0.1 10^3/uL (0-0.05); Absolute Lymphocytes 1.2 10^3/uL (1.2-3.4); Absolute Monocytes 1.6 10^3/uL (0.1-0.6); Absolute Neutrophils 18.8 10^3/uL (1.4-6.5); Hematocrit 21.9 % (39.0-52.0); Hemoglobin 7.1 g/dL (13.0-18.0); Mean Corp Hgb Conc. 32.4 g/dL (33.0-37.0); Mean Corpuscular Hgb 28.2 pg (27.0-31.0); Mean Corpuscular Volume 86.9 fL (80.0-94.0); Mean Platelet Volume 9.9 fL (7.4-10.4); Nucleated Red Blood Cells % 0 % (-); Platelet Count 277 10^3/uL (130-400); Red Blood Cell Count 2.52 10^6/uL (4.70-6.10); Red Cell Dist. Width 20.6 % (11.5-14.5); White Blood Cell Count 21.8 10^3/uL (4.8-10.8)
[2024-12-10 16:04] LABS: PT 16.5 Sec (11.4-14.6)
[2024-12-10 16:17] LABS: ALT (SGPT) 19 U/L (0-50); AST (SGOT) 20 U/L (17-59); Albumin 2.6 g/dl (3.5-5.0); Alkaline Phosphatase 612 U/L (38-126); Blood Urea Nitrogen 9 mg/dl (9-20); Calcium 12.6 mg/dl (8.4-10.2); Carbon Dioxide 32 mmol/L (22-30); Chloride 98 mmol/L (98-107); Estimated Creatinine Clearance 63 ml/min; Glucose 113 mg/dl (70-99); Potassium 3.7 mmol/L (3.5-5.1); Sodium 134 mmol/L (135-145); Total Bilirubin 0.7 mg/dl (0.2-1.3); Total Protein 6.1 g/dl (6.3-8.2); eGFR > 60.00
[2024-12-10] MEDS: NSS 1000 IV ×2 (16:24→20:04)
[2024-12-10] MEDS: NSS 500 IV (16:33)
[2024-12-10] MEDS: MAXIPIME 1000 MG IV ×2 (16:44→23:09)
[2024-12-10 16:55] LABS: Lactic Acid 1.4 mmol/L (0.7-2.0)
--- NOTE | 2024-12-10 17:15 | HPS.HSE ---
Family Physician
-
Family Physician: Ruel Edward DO
Chief Complaint
-
Generalized fatigue
History of Present Illness
Mr. 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 His symptoms have been
progressively worsening over the past few weeks, however today he was unable to even get out of bed and so called EMS. He has been on multiple chemotherapeutic regimens since his initial cancer diagnosis in March 2024, initially with FOLFOX but
later switched to FOLFIRI after disease progression. He reports his last treatment was approximately 3 weeks prior to this admission and there are plans for potentially changing to a different treatment regimen. He follows with [facility].
He reports diarrhea during his most recent chemotherapy treatment which has significantly improved over the past few weeks. He denies abdominal pain, fever, or chills.
In the ED, he was borderline hypotensive with initial BP of 108/66. He was afebrile. Labs were significant for leukocytosis of almost 22,000, hemoglobin 7.1 (recent baseline appears to be around 8.0), and a calcium of 12.6. He was given a bolus
of IV fluids and a dose of antibiotics with cefepime. He has been admitted for further evaluation and management of hypercalcemia of malignancy.
Medical History
Past Medical History
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
Past Surgical History: Reports Other (Hernia repair)
Social History
Tobacco: Former Smoker (Quit over 30 years ago)
Alcohol: Former (Remote drinking history quit many decades ago)
Drug: None
Personal:
Living: With Family
Employment: Not Employed
Family History
Family History: Not pertinent
Allergies / Home Medications
Allergies reflects when Allergies were last updated in [employer].
Home Medications with original date entered in [employer]
Allergy/Medication List:
Allergies
Allergy/AdvReac Type Severity Reaction Status Date / Time
bee venom protein (honey bee) Allergy Hives Verified 12/10/24 13:47
Home Medications
ascorbic acid (vitamin C) 500 mg tablet (Vitamin C) 500 mg PO DAILY Supplement 04/01/24
calcium carbonate (Calcium 600) 600 mg PO DAILY Supplement 04/01/24
cholecalciferol (vitamin D3) 25 mcg (1,000 unit) tablet (Vitamin D3) 25 mcg PO DAILY Supplement 04/01/24
cyanocobalamin (vitamin B-12) 1,000 mcg tablet 1,000 mcg PO DAILY Supplement 04/01/24
magnesium oxide 400 mg PO DAILY Supplement 04/01/24
zinc sulfate 50 mg zinc (220 mg) tablet 50 mg PO DAILY Supplement 04/01/24
acetaminophen 325 mg tablet 650 mg (2 x 325 mg) PO Q4HPRN PRN mild pain #1 tab 04/09/24
apixaban 5 mg tablet (Eliquis) 2.5 mg PO BID 11/15/24
Review of Systems
-
History Source: Patient
A 12 point ROS was completed and negative except as noted: Yes
Constitutional: Reports Fatigue
Physical Exam
Vital Signs
Vital Signs
Temp Pulse Resp BP Pulse Ox
98.7 F 88 17 98/67 100
12/10/24 13:53 12/10/24 16:45 12/10/24 16:45 12/10/24 16:00 12/10/24 16:45
Physical Exam
General: No Apparent Distress and Appears Chronically Ill
Laboratory Results
-
12/10/24 15:44
12/10/24 15:44
Laboratory Results
PT 16.5 Sec (11.4-14.6) H 12/10/24 15:44
INR 1.30 12/10/24 15:44
APTT 41.0 Sec (23.4-35.0) H 12/10/24 15:44
Lactic Acid Cancelled 12/10/24 20:15
Total Bilirubin 0.7 mg/dl (0.2-1.3) 12/10/24 15:44
AST 20 U/L (17-59) 12/10/24 15:44
ALT 19 U/L (0-50) 12/10/24 15:44
Alkaline Phosphatase 612 U/L (38-126) H 12/10/24 15:44
Impression/Plan
-
General: No Apparent Distress, chronically ill-appearing, cachectic
HEENT: NormoCephalic, Moist mucous membranes, Atraumatic
Respiratory: Clear and Non Labored Respirations
Cardiac: S1/S2 and Regular Rhythm; No Rub or Gallop
GI: Soft, Non Tender, scaphoid, normal Bowel Sounds
Musculoskeletal: No Edema, no deformity, decreased muscle bulk throughout
Skin: Warm and dry
: NO Carrera
Neuro: Awake, Alert, Nonfocal/grossly intact
Psych: Calm and Intact Judgment/Insight
Mr. 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 His symptoms have been
progressively worsening over the past few weeks, however today he was unable to even get out of bed and so called EMS. He has been on multiple chemotherapeutic regimens since his initial cancer diagnosis in March 2024, initially with FOLFOX but
later switched to FOLFIRI after disease progression. He reports his last treatment was approximately 3 weeks prior to this admission and there are plans for potentially changing to a different treatment regimen. He follows with [facility].
He reports diarrhea during his most recent chemotherapy treatment which has significantly improved over the past few weeks. He denies abdominal pain, fever, or chills.
In the ED, he was borderline hypotensive with initial BP of 108/66. He was afebrile. Labs were significant for leukocytosis of almost 22,000, hemoglobin 7.1 (recent baseline appears to be around 8.0), and a calcium of 12.6. He was given a bolus
of IV fluids and a dose of antibiotics with cefepime. He has been admitted for further evaluation and management of hypercalcemia of malignancy.
Hypercalcemia of malignancy:
- Continue aggressive IV fluids
- Given dose of zoledronate
- Will check ionized calcium level
- Discontinue home calcium supplements and vitamin D for now
- Consult to primary oncology team
- Monitor for improvement in serum calcium levels on a.m. labs
Leukocytosis:
- Suspect this is malignancy related, no overt evidence of infection
- WBC appears consistent with recent baseline
- Will continue antibiotics for now with low threshold to discontinue
- Monitor and check white count on repeat labs in the morning
Anemia of chronic disease:
- Likely due to malignancy
- No overt evidence of bleeding
- Blood transfusion consent signed and in chart if needed
History of PE:
- Malignancy related
- Continue anticoagulation with low-dose Eliquis
DVT prophylaxis: Eliquis
CODE STATUS: Full code, confirmed with patient
Total time spent on today's encounter was 55 minutes
[2024-12-10] MEDS: ZOMETA 105 MG IV (20:03)
[2024-12-10] MEDS: ELIQUIS 2.5 MG PO (20:08)
[2024-12-10 20:48] LABS: Ionized Calcium 1.76 mMOL/L (1.15-1.33)
--- NOTE | 2024-12-10 21:20 | PTCARENOTE ---
Pt with critical ionized calcium of 1.76. DIANNA Stubbs notified of value. 250ml fluid bolus ordered. Plan of care ongoing.
[2024-12-10] MEDS: NSS 250 IV (22:13)
[2024-12-10] MEDS: STERILE WATER FOR INJECTION 10 ML IV (23:09)
[2024-12-11] VITALS (9 sets, daily range): BP systolic 85–140; BP diastolic 54–84; PULSE 88–94; O2SAT 97–98; BMI 12.8
[2024-12-11 05:20] LABS: Urine Albumin 1+ (Neg - Trace); Urine Bilirubin Negative (Negative); Urine Character Cloudy (Clear); Urine Glucose Negative (Negative); Urine Ketone Negative (Negative); Urine Leukocyte 3+ (Negative); Urine Nitrite Negative (Negative); Urine Occult Blood 2+ (Negative); Urine Specific Gravity 1.015 (<1.030); Urine Urobilinogen Negative (Neg - 1+)
[2024-12-11 05:24] LABS: Urine Color Straw
[2024-12-11 06:01] LABS: Urine Squamous Cell 0-2 /LPF (Few)
[2024-12-11 06:02] LABS: Urine Bacteria Few (Negative); Urine Red Blood Cell None Seen /HPF (0-2)
[2024-12-11] MEDS: NSS 1000 IV ×2 (07:42→17:07)
--- NOTE | 2024-12-11 08:16 | CON.ONC ---
Impression
Impression
Acute decompensation of chronic anemia
Fatigue
Metastatic colorectal carcinoma with intact primary
History of ulcerative colitis
Hypercalcemia
Plan
Plan
Transfuse hemoglobin less than 8.0 g/dL as there is suspected oozing from his untreated primary
Iron stores performed on 12/07 which revealed evidence of chronic disease serum iron of 25
Suspect he is likely oozing from his primary which has recently progressed
Leukocytosis may represent response to recent growth factor support however agree with broad-spectrum antibiotics while Cultures pending
PTHr
Hydration and Zometa administered
Monitor CBC
Patient History
History of Present Illness
Mr. 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 His symptoms have been progressively
worsening over the past few weeks, however today he was unable to even get out of bed and so called EMS. He has been on multiple chemotherapeutic regimens since his initial cancer diagnosis in March 2024, initially with FOLFOX but later switched
to FOLFIRI after disease progression last dose 11/09/2024. Patient has been receiving erythropoietin support for anemia associated with antineoplastic therapy. He denies abdominal pain, fever, or chills. Emergency room evaluation labs were
significant for leukocytosis of almost 22,000(filgrastim given 11/15) hemoglobin 7.1 (recent baseline appears to be around 8.0), and a calcium of 12.6. He was given a bolus of IV fluids and a dose of antibiotics with cefepime. He has been admitted
for further evaluation and management of hypercalcemia of malignancy.
Past-Medical/Surgical History
Past Medical History
Past Medical History: Sigmoid adenocarcinoma with liver metastases, Anemia of chronic disease (malignancy and secondary to his neoplastic therapy) and PE
Past Surgical History: Hernia repair
Social History
Tobacco: Former Smoker (Quit over 30 years ago)
Alcohol: Former (Remote drinking history quit many decades ago)
Drug: None
Personal:
Living: With Family
Employment: Not Employed
Family History
Family History: Not pertinent
Patient Medication
�Medication �Instructions �Recorded �Confirmed �Last Taken �Type
ascorbic acid (vitamin C) 500 mg 500 mg PO DAILY Supplement 04/01/24 12/10/24 11/15/24 History
tablet (Vitamin C)
calcium carbonate (Calcium 600) 600 mg PO DAILY Supplement 04/01/24 12/10/24 11/15/24 History
cholecalciferol (vitamin D3) 25 25 mcg PO DAILY Supplement 04/01/24 12/10/24 11/15/24 History
mcg (1,000 unit) tablet (Vitamin
D3)
cyanocobalamin (vitamin B-12) 1,000 mcg PO DAILY Supplement 04/01/24 12/10/24 11/15/24 History
1,000 mcg tablet
magnesium oxide 400 mg PO DAILY Supplement 04/01/24 12/10/24 11/15/24 History
zinc sulfate 50 mg zinc (220 mg) 50 mg PO DAILY Supplement 04/01/24 12/10/24 11/15/24 History
tablet
apixaban 2.5 mg tablet (Eliquis) 2.5 mg PO BID 12/10/24 12/10/24 12/10/24 History
Active Medications
Generic Name Dose Route Start Last Admin
Trade Name Freq PRN Reason Stop Dose Admin
Acetaminophen 650 mg 12/10/24 18:17
Acetaminophen 325 Mg Tablet PO 01/07/25 18:16
Q4HPRN PRN
mild pain/SCHRADER/temp> 100.4F
Apixaban 2.5 mg 12/10/24 20:00 12/10/24 20:08
Apixaban (Eliquis) 2.5 Mg Tablet PO 01/07/25 19:59 2.5 mg
BID MIRANDA Administration
Cefepime HCl 1,000 mg 12/11/24 00:00 12/10/24 23:09
Cefepime Hcl 1,000 Mg/11.3 Ml Vial IV 12/15/24 00:00 1,000 mg
Q8H MIRANDA Administration
Heparin Sodium (Porcine) 500 unit 12/10/24 19:30
Heparin Flush Pf (100 Unit/Ml) 5 Ml Syringe IV 01/07/25 19:29
PER PROTOCOL MIRANDA
Sodium Chloride 1,000 mls @ 100 mls/hr 12/10/24 18:17 12/11/24 07:42
Nss IV 1,000 mls
.Q10H MIRANDA Administration
Loperamide HCl 2 mg 12/10/24 17:32
Loperamide 2 Mg Capsule PO 01/07/25 17:31
Q4HPRN PRN
diarrhea
Ondansetron HCl 4 mg 12/10/24 18:17
Ondansetron 4 Mg/2 Ml Vial IV 01/07/25 18:16
Q6HPRN PRN
nausea and vomiting
Senna/Docusate Sodium 1 tablet 12/10/24 18:17
Docusate W/Senna (Miriam-Colace) Tablet PO 01/07/25 18:16
BIDPRN PRN
constipation
Sodium Chloride 0 flush 12/10/24 18:00
Sodium Chloride 0.9% (Flush) Syringe IV 01/07/25 17:59
PER PROTOCOL MIRANDA
Sterile Water 10 ml 12/11/24 00:00 12/10/24 23:09
Sterile Water For Injection 10 Ml Vial IV 01/08/25 00:00 10 ml
Q8H MIRANDA Administration
Review of Systems
-
No additional complaints other than those reviewed in HPI
Physical Exam
-
Physical examination:
General: No Apparent Distress, chronically ill-appearing, cachectic
HEENT: Moist mucous membranes, Atraumatic
Respiratory: Clear and Non Labored Respirations
Cardiac: S1/S2 and Regular Rhythm; No Rub or Gallop
GI: Soft, Non Tender, scaphoid, normal Bowel Sounds
Musculoskeletal: No Edema, no deformity, decreased muscle bulk throughout
Skin: Warm and dry
Neuro: Awake, Alert, Nonfocal/grossly intact
Psych: Calm and Intact Judgment/Insight
Labs
Lab Results
WBC 21.8 10^3/uL (4.8-10.8) H 12/10/24 15:44
RBC 2.52 10^6/uL (4.70-6.10) L 12/10/24 15:44
Hgb 7.1 g/dL (13.0-18.0) L 12/10/24 15:44
Hct 21.9 % (39.0-52.0) L 12/10/24 15:44
MCV 86.9 fL (80.0-94.0) 12/10/24 15:44
MCH 28.2 pg (27.0-31.0) 12/10/24 15:44
MCHC 32.4 g/dL (33.0-37.0) L 12/10/24 15:44
RDW 20.6 % (11.5-14.5) H 12/10/24 15:44
Plt Count 277 10^3/uL (130-400) 12/10/24 15:44
MPV 9.9 fL (7.4-10.4) 12/10/24 15:44
Abs Immat Gran (auto) 0.1 10^3/uL (0-0.05) H 12/10/24 15:44
Absolute Neuts (auto) 18.8 10^3/uL (1.4-6.5) H 12/10/24 15:44
Absolute Lymphs (auto) 1.2 10^3/uL (1.2-3.4) 12/10/24 15:44
Absolute Monos (auto) 1.6 10^3/uL (0.1-0.6) H 12/10/24 15:44
Absolute Eos (auto) 0.0 10^3/uL (0-0.7) 12/10/24 15:44
Absolute Basos (auto) 0.0 10^3/uL (0-0.2) 12/10/24 15:44
Immature Gran % 0.6 % (0-0.5) H 12/10/24 15:44
Neutrophils % 86.4 % (42.2-75.2) H 12/10/24 15:44
Lymphocytes % 5.6 % (20.5-51.1) L 12/10/24 15:44
Monocytes % 7.4 % (1.7-9.3) 12/10/24 15:44
Eosinophils % 0.0 % (0-6) 12/10/24 15:44
Basophils % 0.0 % (0-2) 12/10/24 15:44
Creatinine 0.7 mg/dL (0.7-1.3) 12/10/24 15:44
Vital Signs
Vital Signs
Temp Pulse Resp BP Pulse Ox
97.5 F 73 16 95/60 98
12/11/24 07:00 12/11/24 07:00 12/11/24 07:00 12/11/24 07:00 12/11/24 07:00
[2024-12-11] MEDS: ELIQUIS 2.5 MG PO ×2 (08:45→21:20)
[2024-12-11] MEDS: MAXIPIME 1000 MG IV ×3 (08:46→23:50)
[2024-12-11] MEDS: STERILE WATER FOR INJECTION 10 ML IV ×3 (08:46→23:50)
[2024-12-11 08:47] LABS: % Immature Granulocytes 0.5 % (0-0.5); % Lymphocytes 7.1 % (20.5-51.1); % Monocytes 7.1 % (1.7-9.3); % Neutrophils 85.3 % (42.2-75.2); Absolute Immature Granulocytes 0.1 10^3/uL (0-0.05); Absolute Lymphocytes 1.4 10^3/uL (1.2-3.4); Absolute Monocytes 1.4 10^3/uL (0.1-0.6); Absolute Neutrophils 17.1 10^3/uL (1.4-6.5); Hematocrit 24.4 % (39.0-52.0); Hemoglobin 7.6 g/dL (13.0-18.0); Mean Corp Hgb Conc. 31.1 g/dL (33.0-37.0); Mean Corpuscular Hgb 27.5 pg (27.0-31.0); Mean Corpuscular Volume 88.4 fL (80.0-94.0); Mean Platelet Volume 10.6 fL (7.4-10.4); Nucleated Red Blood Cells % 0 % (-); Platelet Count 290 10^3/uL (130-400); Red Blood Cell Count 2.76 10^6/uL (4.70-6.10); Red Cell Dist. Width 21.2 % (11.5-14.5); White Blood Cell Count 20.1 10^3/uL (4.8-10.8)
[2024-12-11 08:56] LABS: Ionized Calcium 1.73 mMOL/L (1.15-1.33)
[2024-12-11 09:10] LABS: Blood Urea Nitrogen 8 mg/dl (9-20); Calcium 11.4 mg/dl (8.4-10.2); Carbon Dioxide 27 mmol/L (22-30); Chloride 105 mmol/L (98-107); Estimated Creatinine Clearance 71 ml/min; Glucose 79 mg/dl (70-99); Phosphorus 2.3 mg/dl (2.5-4.5); Potassium 3.7 mmol/L (3.5-5.1); Sodium 138 mmol/L (135-145); eGFR > 60.00
[2024-12-11 12:30] LABS: Calcium 11.7 mg/dl (8.4-10.2)
[2024-12-11 12:46] LABS: Intact PTH 17.3 pg/ml (13.6-85.8)
--- NOTE | 2024-12-11 13:52 | CM ---
Initial assessment completed with pt at bedside.
Pt is a 69yr old male admitted with hypercalcemia of malignancy. Pt has malignant colon/liver CA that has produced various related concerns but came to ED with worsening fatigue and weakness. Pt is undergoing Chemo and is followed by [facility].
At baseline, pt lives with his in a ranch home with 1 step to enter.
Pt is indep at baseline and drives up until this admission. Pt does not have current/hx use of DME/VN/SNF.
PCP; Ruel Edward
Pharm; [facility]
PLAN; dc to home with no needs anticipated. Will need transport home- his does not drive.
--- NOTE | 2024-12-11 14:12 | W.PN.HOSP.TC ---
Today's Communication/Plan
-
Assessment / Plan
Assessment / Plan
General: No Apparent Distress, chronically ill-appearing, cachectic
HEENT: NormoCephalic, Moist mucous membranes, Atraumatic
Respiratory: Clear and Non Labored Respirations
Cardiac: S1/S2 and Regular Rhythm; No Rub or Gallop
GI: Soft, Non Tender, scaphoid, normal Bowel Sounds
Musculoskeletal: No Edema, no deformity, decreased muscle bulk throughout
Skin: Warm and dry
: NO Carrera
Neuro: Awake, Alert, Nonfocal/grossly intact
Psych: Calm and Intact Judgment/Insight
Mr. 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 His symptoms have been
progressively worsening over the past few weeks, however today he was unable to even get out of bed and so called EMS. He has been on multiple chemotherapeutic regimens since his initial cancer diagnosis in March 2024, initially with FOLFOX but
later switched to FOLFIRI after disease progression. He reports his last treatment was approximately 3 weeks prior to this admission and there are plans for potentially changing to a different treatment regimen. He follows with [facility].
He reports diarrhea during his most recent chemotherapy treatment which has significantly improved over the past few weeks. He denies abdominal pain, fever, or chills.
In the ED, he was borderline hypotensive with initial BP of 108/66. He was afebrile. Labs were significant for leukocytosis of almost 22,000, hemoglobin 7.1 (recent baseline appears to be around 8.0), and a calcium of 12.6 (13.7 when corrected for
hypoalbuminemia). He was given a bolus of IV fluids and a dose of antibiotics with cefepime. He has been admitted for further evaluation and management of hypercalcemia of malignancy.
Hypercalcemia of malignancy:
- Continue aggressive IV fluids
- Given dose of zoledronate 4 mg IV x 1
- Calcium level slightly improved today
- Discontinue home calcium supplements and vitamin D for now
- Oncology following
- Monitor for improvement in serum calcium levels on daily labs
Generalized weakness:
- Likely secondary to advanced malignancy and subsequent hypercalcemia
- Continue supportive care
- PT/OT recommending home therapy after discharge
Leukocytosis:
- Suspect this is malignancy related, no overt evidence of infection
- WBC remains consistent with recent baseline
- Will continue antibiotics for now with low threshold to discontinue, cultures no growth to date
- Monitor
Anemia of chronic disease:
- Likely due to malignancy
- No overt evidence of bleeding however likely has slow oozing from primary colon tumor
- Blood transfusion consent signed and in chart if needed
- Oncology recommending to transfuse PRBCs to maintain hemoglobin greater than 8.0
History of PE:
- Malignancy related
- Continue anticoagulation with low-dose Eliquis
DVT prophylaxis: Eliquis
CODE STATUS: Full code, confirmed with patient
Total time spent on today's encounter was 45 minutes
Anticipated Discharge: 24 - 48 hours
Subjective/Interval History
-
Date of Service: December 11, 2024
Patient was seen and examined at bedside this morning. Says he is feeling about the same, somewhat better compared to yesterday. Calcium levels slightly improved from yesterday.
Objective Data
-
Labs:
Laboratory Results
12/11/24 12/11/24
08:28 11:59
WBC 20.1 H
Hgb 7.6 L
Hct 24.4 L
Plt Count 290
Sodium 138
Potassium 3.7
Chloride 105
Carbon Dioxide 27
BUN 8 L
Creatinine 0.5 L
Glucose 79
Calcium 11.4 H 11.7 H
Vital Signs:
Vital Signs
Temp Pulse Resp BP Pulse Ox
97.5 F 95 16 99/57 100
12/11/24 11:00 12/11/24 11:00 12/11/24 11:00 12/11/24 11:00 12/11/24 11:00
I&O
12/10/24 12/11/24 12/12/24
06:59 06:59 06:59
Intake Total 240 / 240
Output Total 750 / 750
Balance 240 / 240 -750 / -750
Review of Systems
-
History Source: Patient
All other systems: Reviewed and negative
Constitutional: Reports Fatigue and Weakness
Physical Exam
-
General: No Apparent Distress and Appears Chronically Ill
--- NOTE | 2024-12-11 16:12 | PTCARENOTE ---
at 1500, patient sitting in chair, denies complaints, appears comfortable. automatic b/p 85/54. manual b/p 90/60, will continue to monitor.
[2024-12-12] VITALS (10 sets, daily range): BP systolic 89–115; BP diastolic 46–72
[2024-12-12] MEDS: NSS 1000 IV ×2 (03:07→16:22)
[2024-12-12] MEDS: MAXIPIME 1000 MG IV ×3 (08:52→23:27)
[2024-12-12] MEDS: STERILE WATER FOR INJECTION 10 ML IV ×3 (08:52→23:27)
[2024-12-12] MEDS: ELIQUIS 2.5 MG PO ×2 (08:52→19:09)
[2024-12-12 09:04] LABS: % Basophils 0.1 % (0-2); % Eosinophils 0.2 % (0-6); % Immature Granulocytes 0.6 % (0-0.5); % Lymphocytes 7.9 % (20.5-51.1); % Monocytes 8.4 % (1.7-9.3); % Neutrophils 82.8 % (42.2-75.2); Absolute Immature Granulocytes 0.1 10^3/uL (0-0.05); Absolute Lymphocytes 1.4 10^3/uL (1.2-3.4); Absolute Monocytes 1.5 10^3/uL (0.1-0.6); Absolute Neutrophils 14.7 10^3/uL (1.4-6.5); Hematocrit 22.9 % (39.0-52.0); Hemoglobin 7.1 g/dL (13.0-18.0); Mean Corpuscular Hgb 27.4 pg (27.0-31.0); Mean Corpuscular Volume 88.4 fL (80.0-94.0); Mean Platelet Volume 10.2 fL (7.4-10.4); Nucleated Red Blood Cells % 0 % (-); Platelet Count 283 10^3/uL (130-400); Red Blood Cell Count 2.59 10^6/uL (4.70-6.10); Red Cell Dist. Width 21.1 % (11.5-14.5); White Blood Cell Count 17.8 10^3/uL (4.8-10.8)
[2024-12-12 09:23] LABS: Blood Urea Nitrogen 8 mg/dl (9-20); Calcium 10.3 mg/dl (8.4-10.2); Carbon Dioxide 28 mmol/L (22-30); Chloride 107 mmol/L (98-107); Estimated Creatinine Clearance 71 ml/min; Glucose 84 mg/dl (70-99); Magnesium 1.8 mg/dl (1.6-2.3); Phosphorus 1.6 mg/dl (2.5-4.5); Potassium 3.3 mmol/L (3.5-5.1); Sodium 139 mmol/L (135-145); eGFR > 60.00
[2024-12-12] MEDS: IMODIUM 2 MG PO (11:22)
--- NOTE | 2024-12-12 15:48 | W.PN.HOSP.TC ---
Today's Communication/Plan
-
Assessment / Plan
Assessment / Plan
General: No Apparent Distress, chronically ill-appearing, cachectic
HEENT: NormoCephalic, Moist mucous membranes, Atraumatic
Respiratory: Clear and Non Labored Respirations
Cardiac: S1/S2 and Regular Rhythm; No Rub or Gallop
GI: Soft, Non Tender, scaphoid, normal Bowel Sounds
Musculoskeletal: No Edema, no deformity, decreased muscle bulk throughout
Skin: Warm and dry
: NO Carrera
Neuro: Awake, Alert, Nonfocal/grossly intact
Psych: Calm and Intact Judgment/Insight
Mr. 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 His symptoms have been
progressively worsening over the past few weeks, however today he was unable to even get out of bed and so called EMS. He has been on multiple chemotherapeutic regimens since his initial cancer diagnosis in March 2024, initially with FOLFOX but
later switched to FOLFIRI after disease progression. He reports his last treatment was approximately 3 weeks prior to this admission and there are plans for potentially changing to a different treatment regimen. He follows with [facility].
He reports diarrhea during his most recent chemotherapy treatment which has significantly improved over the past few weeks. He denies abdominal pain, fever, or chills.
In the ED, he was borderline hypotensive with initial BP of 108/66. He was afebrile. Labs were significant for leukocytosis of almost 22,000, hemoglobin 7.1 (recent baseline appears to be around 8.0), and a calcium of 12.6 (13.7 when corrected for
hypoalbuminemia). He was given a bolus of IV fluids and a dose of antibiotics with cefepime. He has been admitted for further evaluation and management of hypercalcemia of malignancy.
Hypercalcemia of malignancy:
- Continue aggressive IV fluids
- Given dose of zoledronate 4 mg IV x 1
- Calcium level continue to improve
- Discontinue home calcium supplements and vitamin D for now
- Oncology following
- Discharge to home when able for ongoing outpatient oncology follow-up
Generalized weakness:
- Likely multifactorial secondary to advanced malignancy, hypercalcemia, and anemia
- Continue supportive care
- PT/OT recommending home therapy after discharge
Anemia of chronic disease:
- Likely due to malignancy
- No overt evidence of bleeding however likely has slow oozing from primary colon tumor
- Hemoglobin 7.1 on labs morning, transfusing 1 unit PRBCs
- Blood transfusion consent signed and in chart
- Oncology recommending to transfuse PRBCs to maintain hemoglobin greater than 8.0
Electrolyte derangements:
- Mild hypokalemia with potassium 3.3
- Hypophosphatemia with phosphorus 1.6
- Replete, monitor
Leukocytosis:
- Suspect this is malignancy related, no overt evidence of infection
- WBC persistently elevated but trended down slightly since admission
- Will continue antibiotics for now with low threshold to discontinue, cultures no growth to date
- Monitor
History of PE:
- Malignancy related
- Continue anticoagulation with low-dose Eliquis
DVT prophylaxis: Eliquis
CODE STATUS: Full code, confirmed with patient
Total time spent on today's encounter was 45 minutes
Anticipated Discharge: 24 - 48 hours
Subjective/Interval History
-
Date of Service: December 12, 2024
Patient was seen and examined at bedside this morning. His was present on telephone. Hemoglobin 7.1 today and so transfusing 1 unit PRBCs. Serum calcium levels continue to improve.
Objective Data
-
Labs:
Laboratory Results
12/12/24
08:51
WBC 17.8 H
Hgb 7.1 L
Hct 22.9 L
Plt Count 283
Sodium 139
Potassium 3.3 L
Chloride 107
Carbon Dioxide 28
BUN 8 L
Creatinine 0.5 L
Glucose 84
Calcium 10.3 H
Vital Signs:
Vital Signs
Temp Pulse Resp BP Pulse Ox
97.9 F 100 18 96/52 100
12/12/24 12:56 12/12/24 12:56 12/12/24 12:56 12/12/24 12:56 12/12/24 12:56
I&O
12/11/24 12/12/24 12/13/24
06:59 06:59 06:59
Intake Total 240 / 240 2740 / 2740 0 / 0
Output Total 1250 / 1250 400 / 400
Balance 240 / 240 1490 / 1490 -400 / -400
Review of Systems
-
History Source: Patient
Constitutional: Reports Fatigue and Weakness
Physical Exam
-
General: No Apparent Distress and Appears Chronically Ill
[2024-12-12] MEDS: KLOR-CON 40 MEQ PO (16:14)
[2024-12-12] MEDS: NEUTRA-PHOS POWDER PACKET 250 MG PO (16:35)
[2024-12-13 03:26] VITALS: BP 94/55
[2024-12-13 04:56] LABS: % Basophils 0.2 % (0-2); % Eosinophils 0.5 % (0-6); % Immature Granulocytes 0.7 % (0-0.5); % Lymphocytes 8.9 % (20.5-51.1); % Monocytes 9.4 % (1.7-9.3); % Neutrophils 80.3 % (42.2-75.2); Absolute Eosinophils 0.1 10^3/uL (0-0.7); Absolute Immature Granulocytes 0.1 10^3/uL (0-0.05); Absolute Lymphocytes 1.7 10^3/uL (1.2-3.4); Absolute Monocytes 1.8 10^3/uL (0.1-0.6); Absolute Neutrophils 15.1 10^3/uL (1.4-6.5); Hematocrit 24.9 % (39.0-52.0); Hemoglobin 7.9 g/dL (13.0-18.0); Mean Corp Hgb Conc. 31.7 g/dL (33.0-37.0); Mean Corpuscular Hgb 27.9 pg (27.0-31.0); Mean Platelet Volume 10.1 fL (7.4-10.4); Nucleated Red Blood Cells % 0 % (-); Platelet Count 239 10^3/uL (130-400); Red Blood Cell Count 2.83 10^6/uL (4.70-6.10); Red Cell Dist. Width 19.3 % (11.5-14.5); White Blood Cell Count 18.8 10^3/uL (4.8-10.8)
[2024-12-13 05:22] LABS: Blood Urea Nitrogen 8 mg/dl (9-20); Calcium 9.4 mg/dl (8.4-10.2); Carbon Dioxide 28 mmol/L (22-30); Chloride 107 mmol/L (98-107); Estimated Creatinine Clearance 71 ml/min; Glucose 75 mg/dl (70-99); Magnesium 1.7 mg/dl (1.6-2.3); Phosphorus 1.4 mg/dl (2.5-4.5); Potassium 3.4 mmol/L (3.5-5.1); Sodium 136 mmol/L (135-145); eGFR > 60.00
[2024-12-13] MEDS: NSS 1000 IV (05:41)
[2024-12-13 07:05] VITALS: BP 96/50
[2024-12-13] MEDS: STERILE WATER FOR INJECTION IV (08:28)
[2024-12-13] MEDS: MAXIPIME IV (08:28)
[2024-12-13] MEDS: KCL 20 MEQ PO ×2 (08:29→20:16)
[2024-12-13] MEDS: ELIQUIS 2.5 MG PO ×2 (08:29→20:16)
--- NOTE | 2024-12-13 09:58 | W.PN.HOSP.TC ---
Addendum entered and electronically signed by Justyn Wilde MD 12/13/24 12:39:
Severe Protein Calorie Malnutrition
Original Note:
Today's Communication/Plan
-
dc after replacement of Phos, Mg, K
Assessment / Plan
Assessment / Plan
Physical exam:
General: No Apparent Distress, chronically ill-appearing, cachectic
HEENT: NormoCephalic, Moist mucous membranes, Atraumatic
Respiratory: Clear and Non Labored Respirations
Cardiac: S1/S2 and Regular Rhythm; No Rub or Gallop
GI: Soft, Non Tender, scaphoid, normal Bowel Sounds
Musculoskeletal: No Edema, no deformity, decreased muscle bulk throughout
Skin: Warm and dry
: NO Carrera
Neuro: Awake, Alert, Nonfocal/grossly intact
Psych: Calm and Intact Judgment/Insight
Mr. 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 His symptoms have been
progressively worsening over the past few weeks, however today he was unable to even get out of bed and so called EMS. He has been on multiple chemotherapeutic regimens since his initial cancer diagnosis in March 2024, initially with FOLFOX but
later switched to FOLFIRI after disease progression. He reports his last treatment was approximately 3 weeks prior to this admission and there are plans for potentially changing to a different treatment regimen. He follows with [facility].
He reports diarrhea during his most recent chemotherapy treatment which has significantly improved over the past few weeks. He denies abdominal pain, fever, or chills.
In the ED, he was borderline hypotensive with initial BP of 108/66. He was afebrile. Labs were significant for leukocytosis of almost 22,000, hemoglobin 7.1 (recent baseline appears to be around 8.0), and a calcium of 12.6 (13.7 when corrected for
hypoalbuminemia). He was given a bolus of IV fluids and a dose of antibiotics with cefepime. He has been admitted for further evaluation and management of hypercalcemia of malignancy.
Hypercalcemia of malignancy:
- s/p aggressive IV fluids, one dose of zoledronate 4 mg IV x 1
- Calcium level continue to improve
- Discontinue home calcium supplements and vitamin D for now
- Oncology following
- Discharge to home when able for ongoing outpatient oncology follow-up
Generalized weakness:
- Likely multifactorial secondary to advanced malignancy, hypercalcemia, and anemia
- Continue supportive care
- PT/OT recommending home therapy after discharge
Anemia of chronic disease:
- Likely due to malignancy
- No overt evidence of bleeding however likely has slow oozing from primary colon tumor
- Hemoglobin 7.1 on labs morning, transfusing 1 unit PRBCs
- Blood transfusion consent signed and in chart
- Oncology recommending to transfuse PRBCs to maintain hemoglobin greater than 8.0
Electrolyte derangements:
- Mild hypokalemia with potassium 3.3
- Hypophosphatemia with phosphorus 1.6
- Replete, monitor
Leukocytosis:
- Suspect this is malignancy related, no overt evidence of infection
- WBC persistently elevated but trended down slightly since admission
- s/p empiric IV Abx but WBC remained same level. No fevers. Blood cultures no growth to date
Hypokalemia
Replace
Hypophosphatemia, hypomagnesemia, replace
History of PE:
- Malignancy related
- Continue anticoagulation with low-dose Eliquis
DVT prophylaxis: Eliquis
CODE STATUS: Full code, confirmed with patient
Total discharge time spent to see the patient, examine the patient, review data and lab result, discuss discharge plan with patient, nursing staff around 65 minutes
Anticipated Discharge: Today
Subjective/Interval History
-
Date of Service: December 13, 2024
No chest pain
No abdominal pain
Objective Data
-
Labs:
Laboratory Results
12/13/24
04:35
WBC 18.8 H
Hgb 7.9 L
Hct 24.9 L
Plt Count 239
Sodium 136
Potassium 3.4 L
Chloride 107
Carbon Dioxide 28
BUN 8 L
Creatinine 0.4 L
Glucose 75
Calcium 9.4
Vital Signs:
Vital Signs
Temp Pulse Resp BP Pulse Ox
98.0 F 73 17 96/50 99
12/13/24 07:05 12/13/24 07:05 12/13/24 07:05 12/13/24 07:05 12/13/24 07:05
I&O
12/12/24 12/13/24 12/14/24
06:59 06:59 06:59
Intake Total 2740 / 2740 1180 / 1180
Output Total 1250 / 1250 700 / 700 1000 / 1000
Balance 1490 / 1490 480 / 480 -1000 / -1000
[2024-12-13] MEDS: MAGNESIUM OXIDE 500 MG PO (10:35)
[2024-12-13] MEDS: POTASSIUM PHOSPHATE 259.0909 MEQ IV (10:44)
[2024-12-13] MEDS: NSS IV (10:48)
[2024-12-13 11:05] VITALS: BP 96/55
--- NOTE | 2024-12-13 11:20 | PN.CDI ---
CDI
- -
CDI:
Physician Documentation Request
Admit Date: 12/10/24 17:38
Dear Doctor Chani,
Clinical Indicators:
Patient admitted with hypercalcemia of malignancy; PMH includes sigmoid colon adenocarcinoma with liver metastasis.
BMI
12/10/24
18:32
Body Mass Index (BMI) 12.8
12/11 note/assessment: -Subcutaneous Loss Rib Cage: Severe Orbital: Moderate
- Muscle Loss Calf: Severe Clavicle: Severe Buccal: Severe
-'Pts weight previous admission listed as 121 lbs 04/01 reflective of a 27 lb (23%) in < 1
year.'
-'With observed muscle and fat wasting, > 20% weight loss in a year and < 75%
estimated needs > 1 month pt meets AND/ASPEN criteria for severe protein calorie
malnutrition.'
Based on the above information and your assessment, which of the following most accurately represents the patient's nutritional status?
Severe Protein Calorie Malnutrition
Other (please specify)
[place] Criteria ([employer] Hospitalist 2017)
2 or more criteria must be present for either
non severe or severe malnutrition
Note that the criteria differs related to the
presence of an acute or chronic illness
Acute Illness Chronic Illness
Energy Intake Non Severe: <75% for >7 days Non Severe: <75% for >1 month
Severe: <50% for >5 days Severe: <75% for >1 month
Weight Loss Non Severe: 1-2% over 1 week Non Severe: 5% over 1 month
5% over 1 month 7.5% over 3 months
7.5% over 3 months 10% over 6 months
1 year N/A 20% over 1 year
Severe: >2% over 1 week Severe: >5% over 1 month
>5% over 1 month >7.5% over 3 months
>7.5% over 3 months >10% over 6 months
1 year N/A >20% over 1 year
Body Fat Non Severe: Mild Decrease Non Severe: Mild Loss
Severe: Moderate Decrease Severe: Severe Loss
Muscle Mass Non Severe: Mild Decrease Non Severe: Mild Loss
Severe: Moderate Decrease Severe: Severe Loss
Fluid Accumulation Non Severe: Mild Accumulation Non Severe: Mild Accumulation
Severe: Moderate to severe Severe: Moderate to severe
accumulation accumulation
Reduced Supervisor Cell Maintenance Strength Non Severe: N/A Non Severe: N/A
Severe: Measurably reduced Severe: Measurably reduced
Additional criteria that can be used to Determine if Mild or Moderate Malnutrition ([employer]ck Manual 2018)
Mild Moderate Severe
Albumin gm/dl <3.0 gm/dl <2.5 gm/dl <2.0 gm/dl
Pre Albumin mg/dl <15 gm/dl <10 mg/dl <5.0 mg/dl
BMI <18.5 <17 <16
Use of terms such as suspected, likely, concern for, or probable (associated with a specific diagnosis that is being evaluated, monitored, or treated as if it exists) are acceptable and can be coded in the inpatient setting, when documented at the
time of discharge.
Thank you,
WENDIE Boo RN
CDI Specialist
available via tiger text
Please use your independent medical judgment in providing your response.
--- NOTE | 2024-12-13 13:20 | CM ---
CM met with Michael at bedside this afternoon; he was just getting his lunch delivered. IMM reviewed and signed; copy placed in chart.
CM consult received for VN services. Pt has declined in the past, but is agreeable to VN at this time. He advised that his is a nurse, so asked that I speak with her about which agency is preferred.
Pt will need transportation home at discharge. His does not drive. Initially he said he requested an ambulance which he would not qualify for due to his ambulatory status. After further discussion, he thinks a w/c van would be a good plan.
VM left for pt's , Vianey, requesting a return call to discuss discharge, transportation and options for VN.
Plan: CM to follow to coordinate discharge plans to home when medically stable.
--- NOTE | 2024-12-13 14:29 | PTCARENOTE ---
patient denies pain, did sit oob for about 2 hours after much encouragement, still feels 'wobbly on his feet'. tolerating diet, though intake poor, drank 1 container of vanilla ensure protein. vss, will continue to monitor.
[2024-12-13 15:05] VITALS: BP 134/74
[2024-12-13] MEDS: FLUSH (NSS) 1 FLUSH IV (15:15)
--- NOTE | 2024-12-13 15:49 | W.PN.ONC2 ---
Today's Communication / Plan
-
.
Impression
Impression
p/w fatigue and weakness. labs c/w hypercalcemia
Metastatic colorectal carcinoma -PET w POD s/p FOLFIRI, plan for panitumumab
leukocytosis, s/p filgrastim 480mcg 11/11-11/15
History of ulcerative colitis
Hypercalcemia, nml PTH - s/p IVF & Zometa
malnutrition
Plan
Plan
Transfuse hemoglobin less than 8.0 g/dL as there is suspected oozing from his untreated primary
monitor for infection, follow cultures
f/u rPTH
will resume retacrit OP
plan for 1st dose of panitumumab 12/20
If goals remain restorative, optimize performance status and nutritional status
OP follow up with Dr. Hobson 12/22
Monitor CBC
Subjective/Objective
Subjective
no new complaints
Vital Signs:
Vital Signs
Temp Pulse Resp BP Pulse Ox
99.7 F 101 17 134/74 99
12/13/24 15:05 12/13/24 15:05 12/13/24 15:05 12/13/24 15:05 12/13/24 15:05
Lab Results:
Laboratory Data
WBC 18.8 10^3/uL (4.8-10.8) H 12/13/24 04:35
Hgb 7.9 g/dL (13.0-18.0) L 12/13/24 04:35
Plt Count 239 10^3/uL (130-400) 12/13/24 04:35
PT 16.5 Sec (11.4-14.6) H 12/10/24 15:44
INR 1.30 12/10/24 15:44
APTT 41.0 Sec (23.4-35.0) H 12/10/24 15:44
eGFR > 60.00 12/13/24 04:35
Physical Exam
HEENT: Moist Mucous Membranes and Other (thin); No Jaundice
Cardiology: Normal Sinus Rhythm
Pulmonary: Clear
GI: Soft
Extremities: Pulses Present
[2024-12-13] MEDS: MAGNESIUM SULFATE 100 IV (18:04)
[2024-12-13 19:00] VITALS: BP 112/66
[2024-12-13] MEDS: IMODIUM 2 MG PO (20:18)
[2024-12-13 23:00] VITALS: BP 95/48
[2024-12-14 03:00] VITALS: BP 104/58
[2024-12-14 05:49] LABS: Hematocrit 28.7 % (39.0-52.0); Hemoglobin 9.1 g/dL (13.0-18.0); Mean Corp Hgb Conc. 31.7 g/dL (33.0-37.0); Mean Corpuscular Hgb 28.1 pg (27.0-31.0); Mean Corpuscular Volume 88.6 fL (80.0-94.0); Platelet Count 294 10^3/uL (130-400); Red Blood Cell Count 3.24 10^6/uL (4.70-6.10); Red Cell Dist. Width 19.8 % (11.5-14.5); White Blood Cell Count 20.1 10^3/uL (4.8-10.8)
[2024-12-14 06:08] LABS: Blood Urea Nitrogen 7 mg/dl (9-20); Calcium 9.4 mg/dl (8.4-10.2); Carbon Dioxide 30 mmol/L (22-30); Chloride 109 mmol/L (98-107); Estimated Creatinine Clearance 71 ml/min; Glucose 69 mg/dl (70-99); Magnesium 2.1 mg/dl (1.6-2.3); Potassium 4.3 mmol/L (3.5-5.1); Sodium 136 mmol/L (135-145); eGFR > 60.00
[2024-12-14] MEDS: ELIQUIS 2.5 MG PO (07:39)
[2024-12-14] MEDS: KCL 20 MEQ PO (07:39)
[2024-12-14 08:10] VITALS: BP 144/84
--- NOTE | 2024-12-14 08:38 | W.PN.HOSP.TC ---
Today's Communication/Plan
-
dc
Assessment / Plan
Assessment / Plan
Physical exam:
General: No Apparent Distress, chronically ill-appearing, cachectic
HEENT: NormoCephalic, Moist mucous membranes, Atraumatic
Respiratory: Clear and Non Labored Respirations
Cardiac: S1/S2 and Regular Rhythm; No Rub or Gallop
GI: Soft, Non Tender, scaphoid, normal Bowel Sounds
Musculoskeletal: No Edema, no deformity, decreased muscle bulk throughout
Skin: Warm and dry
: NO Carrera
Neuro: Awake, Alert, Nonfocal/grossly intact
Psych: Calm and Intact Judgment/Insight
Mr. 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 His symptoms have been
progressively worsening over the past few weeks, however today he was unable to even get out of bed and so called EMS. He has been on multiple chemotherapeutic regimens since his initial cancer diagnosis in March 2024, initially with FOLFOX but
later switched to FOLFIRI after disease progression. He reports his last treatment was approximately 3 weeks prior to this admission and there are plans for potentially changing to a different treatment regimen. He follows with [facility].
He reports diarrhea during his most recent chemotherapy treatment which has significantly improved over the past few weeks. He denies abdominal pain, fever, or chills.
In the ED, he was borderline hypotensive with initial BP of 108/66. He was afebrile. Labs were significant for leukocytosis of almost 22,000, hemoglobin 7.1 (recent baseline appears to be around 8.0), and a calcium of 12.6 (13.7 when corrected for
hypoalbuminemia). He was given a bolus of IV fluids and a dose of antibiotics with cefepime. He has been admitted for further evaluation and management of hypercalcemia of malignancy.
Hypercalcemia of malignancy:
- s/p aggressive IV fluids, one dose of zoledronate 4 mg IV x 1
- Calcium level continue to improve, down to 9.4
- Discontinue home calcium supplements and vitamin D for now
- Oncology followed.
Generalized weakness/ failure to thrive/ severe protein-caloric malnutrition with wasting of muscles and weight loss due to cancer:
- Continue supportive care, encourage the pt to discuss palliative care/ hospice with his oncologist. I d/w Primary oncologist Dr Hobson, she agreed and will follow in office.
- PT/OT recommending home therapy after discharge
Anemia of chronic disease:
- Likely due to malignancy
- No overt evidence of bleeding however likely has slow oozing from primary colon tumor
- Hemoglobin 7.1 on labs morning, transfusing 1 unit PRBCs
- Blood transfusion consent signed and in chart
HGB stable at 9.1 upon discharge.
- Oncology recommending to transfuse PRBCs to maintain hemoglobin greater than 8.0
Electrolyte derangements:
- Mild hypokalemia, resolved.
- Hypophosphatemia, treated.
Leukocytosis:
- Suspect this is malignancy related, no overt evidence of infection
- WBC persistently elevated but trended down slightly since admission
- s/p empiric IV Abx but WBC remained same level. No fevers. Blood cultures no growth to date
Hypokalemia
Replaced
Hypophosphatemia, hypomagnesemia, replace
History of PE:
- Malignancy related
- Continue anticoagulation with low-dose Eliquis
DVT prophylaxis: Eliquis
CODE STATUS: Full code, confirmed with patient
Total discharge time spent to see the patient, examine the patient, review data and lab result, discuss discharge plan with patient, nursing staff around 65 minutes
Anticipated Discharge: Today
Subjective/Interval History
-
Date of Service: December 14, 2024
No complaints, he feels ready to go home
Objective Data
-
Labs:
Laboratory Results
12/14/24
05:31
WBC 20.1 H
Hgb 9.1 L
Hct 28.7 L
Plt Count 294 D
Sodium 136
Potassium 4.3 D
Chloride 109 H
Carbon Dioxide 30
BUN 7 L
Creatinine 0.4 L
Glucose 69 L
Calcium 9.4
Vital Signs:
Vital Signs
Temp Pulse Resp BP Pulse Ox
97.7 F 96 17 144/84 99
12/14/24 08:10 12/14/24 08:10 12/14/24 08:10 12/14/24 08:10 12/14/24 08:10
I&O
12/13/24 12/14/24 12/15/24
06:59 06:59 06:59
Intake Total 1180 / 1180 1100 / 1100
Output Total 700 / 700 2650 / 2650
Balance 480 / 480 -1550 / -1550
--- NOTE | 2024-12-14 09:00 | W.PN.ONC ---
Today's Communication / Plan
-
d/c today
Impression
Impression
p/w fatigue and weakness. labs c/w hypercalcemia
Metastatic colorectal carcinoma -PET w POD s/p FOLFIRI, plan for panitumumab
leukocytosis, s/p filgrastim 480mcg 11/11-11/15
History of ulcerative colitis
Hypercalcemia, nml PTH - s/p IVF & Zometa
malnutrition
Plan
Plan
d/c planning for today
Discussed goals of care - treatment on 12/20 as scheduled - with questionable benefit, delay treatment, or changing focus to comfort measures
He wants to think about it, not ready to make a decision today
I'll f/u with him later this week to see if he feels up to treatment on 12/20 (first dose of Vectibix)
Subjective/Objective
Subjective/Objective
ate breakfast, feeling okay for d/c home today
Vital Signs:
Vital Signs
Temp Pulse Resp BP Pulse Ox
97.7 F 96 17 144/84 99
12/14/24 08:10 12/14/24 08:10 12/14/24 08:10 12/14/24 08:10 12/14/24 08:10
Lab Results:
Laboratory Data
WBC 20.1 10^3/uL (4.8-10.8) H 12/14/24 05:31
Hgb 9.1 g/dL (13.0-18.0) L 12/14/24 05:31
Plt Count 294 10^3/uL (130-400) D 12/14/24 05:31
PT 16.5 Sec (11.4-14.6) H 12/10/24 15:44
INR 1.30 12/10/24 15:44
APTT 41.0 Sec (23.4-35.0) H 12/10/24 15:44
eGFR > 60.00 12/14/24 05:31
[2024-12-14 11:11] VITALS: BP 97/53
--- NOTE | 2024-12-14 11:55 | W.DCSUMMARY ---
Discharge Summary
Discharge Data
Date of Admission: 12/10/24
Date of Discharge: 12/14/24
-
Pending Results: No
Hospital Course
69 years old male presented to the hospital with generalized fatigue. Patient reported progressive symptoms associated with weakness, loss of appetite. Patient was found to have leukocytosis of 22,000, hemoglobin 7.1, calcium of 12.6. Patient was
given antibiotic empiric antibiotic. He was admitted to the hospital was diagnosed with hyperglycemia of malignancy. Patient received 1 dose of panitumumab with IV hydration. He had electrolyte imbalance with hypokalemia, hypophosphatemia and
hypomagnesemia. Calcium level started to improve and trended down to 9.4. Patient started to feel better. He was evaluated by physical therapy recommended home health services. Patient was diagnosed with cachexia/severe protein caloric
malnutrition. Patient was encouraged to discuss goals of care/prognosis/hospice care with his oncologist if appropriate. Patient verbalized understanding. He remained hemodynamically stable. Calcium supplements was discontinued. He was
discharged home in a stable condition.
Discharge Plan
-
Patient Disposition: Home with Home Care
Discharge Diagnosis/Procedures: Hypercalcemia, treated
Metastatic colorectal carcinoma
Hypokalemia, treated
Hypomagnesemia, treated
Hypophosphatemia, treated
Condition: Fair
Diet: As tolerated
Referrals:
Ruel Edward DO [Family Provider] -
Prescriptions:
Continued
cyanocobalamin (vitamin B-12) 1,000 mcg Tablet
1,000 mcg PO DAILY
zinc sulfate 50 mg zinc (220 mg) Tablet
50 mg PO DAILY
ascorbic acid (vitamin C) [Vitamin C] 500 mg Tablet
500 mg PO DAILY
magnesium oxide 400 mg magnesium Tablet
400 mg PO DAILY
Eliquis 2.5 mg Tablet
2.5 mg PO BID
Held
cholecalciferol (vitamin D3) [Vitamin D3] 25 mcg (1,000 unit) Tablet
25 mcg PO DAILY
Hold Instructions: Resume on 12/20/24.
Discontinued
calcium carbonate [Calcium 600] 600 mg calcium (1,500 mg) Tablet
600 mg PO DAILY
Discharge Orders:
Discharge Patient (As Directed); Ordered 12/14/24
Ordered By: Justyn Wilde
Discharge Date and Time
Print Language: SLOVENIAN
--- NOTE | 2024-12-14 13:51 | CM ---
Addendum entered by Jazzy Moe 12/14/24 14:31:
W/C van transport requested, as pt's does not drive. 2:30pm pickle processor arranged.
Pt provided with phone number to call with payment. When he called, he was told that he could not pay for the w/c van, and the child protective services social worker had to do it.
Pt has still not provided a VN agency for services despite multiple requests and encouragement.
Plan: Pt to be discharged to home today via w/c van. He is aware to contact his PCP to request home care/VN services.
Original Note:
Pt is cleared for discharge to home today. CM called pt's and had to leave a voicemail message. Pt would like his to choose the VN agency. Pt advised if he is discharged prior to VN agency being identified, he can contact his PCP for Rx
for home care services. Pt also encouraged to call his to see if she will answer when she sees he is calling.
[2024-12-14 14:55] VITALS: BP 105/65
[2024-12-14 15:45] LABS: PTH Related Peptide LC-MS/MS 31.5 pmol/L (0.0-2.3)
== END 2024-12-14 15:10 | disposition home health service (06) | DRG 374 ==
LOC: 3 WEST ACU 17:38
PROVIDERS: Nurse Practitioner Gerontology; Physician Assistant Medical; ADMITTING PHYSICIAN Internal Medicine; ATTENDING PHYSICIAN Internal Medicine; CONSULT PHYSICIAN Internal Medicine Hematology & Oncology; EMERGENCY PHYSICIAN Emergency Medicine; FAMILY PHYSICIAN Family Medicine
PROC: 30243N1 Transfusion of Nonautologous Red Blood Cells into Central Vein, Percutaneous Approach (ICD-10-PCS; 2024-12-12)
DX: C19 Malignant neoplasm of rectosigmoid junction (principal); E43 Unspecified severe protein-calorie malnutrition; C78.7 Secondary malignant neoplasm of liver and intrahepatic bile duct; Z68.1 Body mass index [BMI] 19.9 or less, adult; K51.90 Ulcerative colitis, unspecified, without complications; R64 Cachexia; E83.52 Hypercalcemia; D63.0 Anemia in neoplastic disease; E87.6 Hypokalemia; E83.42 Hypomagnesemia; E83.39 Other disorders of phosphorus metabolism; Z87.891 Personal history of nicotine dependence; D72.829 Elevated white blood cell count, unspecified; Z79.01 Long term (current) use of anticoagulants; Z86.711 Personal history of pulmonary embolism; K59.00 Constipation, unspecified
CPT/HCPCS: 71045; 80048; 80053; 81003; 81015; 82330; 83519; 83605; 83735; 83970; 84100; 85025; 85027; 85610; 85730; 86850; 86900; 86901; 86920; 87040; 87086; 93005; 96374; 97162; 97166; 99285; J3489; P9016

== ENCOUNTER 2024-12-24 20:59 | Inpatient (IN) | payer MEDICARE, SELFPAY ==
[2024-12-24 16:25] VITALS: BP 105/63
--- NOTE | 2024-12-24 16:39 | ED.GENMED ---
History of Present Illness
<Tiffanie Tapia, SYNTHETIC FILAMENT EXTRUDER - Last Filed: 12/25/24 15:55>
General
Chief Complaint: Abdominal Pain
Source: patient
Exam Limitations: none
Time Seen by Provider: 12/24/24 16:39
Nursing documentation reviewed up to this point in time: agreed with
History of Present Illness
History of Present Illness:
69-year-old male with history of ulcerative colitis, metastatic colorectal carcinoma, admitted 12/10-12/14 for hyperglycemia of malignancy. Here today for painful swollen area left groin worsening over past 2 days. Denies fever/chills. Having daily
BM's, no trouble urinating
Had bilateral inguinal hernia repairs, pt states last one on left, 2018.
Past History
<Tiffanie Tapia, SYNTHETIC FILAMENT EXTRUDER - Last Filed: 12/25/24 15:55>
Past History
ED Past Medical History: Cancer (metastatic colorectal CA) and Other (Ulcerative colitis ); Negative Asthma, HTN, Hypercholesterolemia or NIDDM
ED Past Surgical History: Other (Hernia, small bowel obstruction)
Social History
Tobacco: Former smoker
Alcohol: None
Drug: None
Personal:
Living: with family
Employment: Employed
Family History
Family History: Negative Early CAD
Review of Systems
<Tiffanie Tapia, SYNTHETIC FILAMENT EXTRUDER - Last Filed: 12/25/24 15:55>
Review of Systems
Allergies reviewed?: Yes
All Other Systems: ROS reviewed and negative except as documented in HPI and ROS
Constitutional: Denies fever or chills
ABD/GI: Denies constipated
: Denies difficulty voiding
Skin: Reports other (swelling, pain left groin)
Phy Exam
<Tiffanie Tapia, SYNTHETIC FILAMENT EXTRUDER - Last Filed: 12/25/24 15:55>
Physical Exam
Physical Exam:
GENERAL: No acute distress. A&Ox3. Cachectic
CONSTITUTIONAL: Afebrile.
EYES: clear, conjunctivae normal
ENMT: moist mucus membranes
RESPIRATORY: Regular respirations, nonlabored, lungs clear.
CARDIOVASCULAR: Regular rate and rhythm, no murmurs, no rubs.
GI: Soft, nontender, normal BS
Left groin: Large fluctuant tender area with surrounding erythema. No drainage. Distal N/V intact.
MUSCULOSKELETAL: Moves with ease. Well perfused.
SKIN: Warm, dry pale
PSYCH:Depressed mood and affect. Well kept, interactive and appropriate
NEUROLOGIC: Awake, alert and oriented. No focal neurological deficits
Course
<Tiffanie Tapia SYNTHETIC FILAMENT EXTRUDER - Last Filed: 12/25/24 15:55>
Orders/Labs/Results
Orders:
Orders
12/24/24 Dinner
NPO
Allow oral meds: Yes
Allow clear liquids: Sips of Clears
12/24/24 16:58
CT Pelvis With Iv Contrast Urgent
Comment:
Reason For Exam: Large ?abscess? left groin
12/24/24 17:40
Complete Blood Count/With Diff Urgent
Comprehensive Metabolic Panel Urgent
12/24/24 19:09
Piperacillin/Tazo 3.375 Gram [Zosyn] 3.375 gram in 50 ml IV NOW
12/24/24 19:14
ColoRectal Surgery Consult Urgent
Consulting Provider: Chavo Higgins
Was physician already notified: Yes
Reason for consult: L groin abscess
12/24/24 19:20
* Blood Bank Products Urgent
Blood Bank Products: *Packed RBC Leuko(PRBC's)
Quantity: 1
Transfuse Today: Yes
Reason: Anemia
IV Insert/Care/Rem.- Treatment PRN
12/24/24 19:25
Vancomycin 1 Gram/200 ml [Vancocin] 1 gram in 200 ml IV NOW
12/24/24 19:28
Type And Crossmatch [Type+Screen] Urgent
12/24/24 19:59
Admit/Transfer Patient As Directed
Co-Sign Provider:
Level of Care: Inpatient admission
Assign to:: Telemetry
Physician / Group: Nanci
Diagnosis: abscess of left groin
Reason for Telemetry: Other
Other Reason for Telemetry: blood loss anemia
Date to Stop Telemetry: 12/26/24
Time to Stop Telemetry: 11:00
Reason for Hospitalization: intraabdominal mass and abscess
Expected length of stay greater than two midnights?: Yes
ELOS- Estimated Length of Stay in days: 2
I certify the patient meets the requirements for IP care: Yes
PRN Pain Medication Management As Directed
May give lesser potent ordered pain med per pt: Yes
preference::
Protocol:: Medication orders for pain may be administered in a
manner that supports deferring to patient preference
when the pt is:
- Requesting an ordered lesser potent pain medication.
Least to most potent pain medications are defined
as: acetaminophen < NSAID < tramadol < opioids
(morphine, oxycodone, hydromorphone).
- Requesting a lesser dose of the same medication IF
ORDERED.
- Requesting a less intrusive route of administration
if both routes are prescribed by the provider (PO <
IV).
12/24/24 20:00
Code Status As Directed
Resuscitation Status: Full Code
12/24/24 20:05
0.9% Sodium Chloride 500 ml [Nss] 500 ml IV BOLUS
12/24/24 21:18
Acetaminophen [Tylenol] 650 mg PO Q4HPRN PRN
Bisacodyl [Dulcolax] 10 mg RECTAL [id number] PRN
Dextrose 5%/0.9%Sodchl 1000 ml [D5/0.9% Sodium Chloride] 1,000 ml IV 100 mls/hr
Docusate W/Senna [Senokot-S] 1 tablet PO BIDPRN PRN
HYDROmorphone [Dilaudid] 0.5 mg IV Q4HPRN PRN
Ondansetron Injectable [Zofran] 4 mg IV Q6HPRN PRN
Polyethylene Glycol Powder [Miralax] 17 grams PO DAILYPRN PRN
12/24/24 21:18
Activity As Directed
Activity Level: With Assistance
Pneumatic Compression Sleeves As Directed
Type: Knee high
Vital Signs As Directed
Frequency: q4h
Pulse Ox/spot Check [RESP] Routine
Quantity: 1
DX Deep Vein Thrombosis Video Routine
12/24/24 21:41
Blood Culture Q30M
FELIBERTO Source: Blood/Venous
Specimen Description:
12/24/24 21:42
Blood Culture Q30M
FELIBERTO Source: Blood/Venous
Specimen Description:
12/25/24 02:00
Piperacillin/Tazo 3.375 Gram [Zosyn] 3.375 gram in 50 ml IV Q6H
12/25/24 04:32
Basic Metabolic Panel IN AM
Complete Blood Count/No Diff IN AM
Magnesium IN AM
Prothrombin Time IN AM
12/26/24 11:00
DC Protocol for Telemetry ONCE
Abnormal Lab Results
12/24/24 12/24/24
17:40 19:28
WBC 18.0 H 10^3/uL
(4.8-10.8)
RBC 2.42 L 10^6/uL
(4.70-6.10)
Hgb 6.8 L* g/dL
(13.0-18.0)
Hct 21.4 L %
(39.0-52.0)
MCHC 31.8 L g/dL
(33.0-37.0)
RDW 18.1 H %
(11.5-14.5)
Abs Immat Gran (auto) 0.1 H 10^3/uL
(0-0.05)
Absolute Neuts (auto) 14.6 H 10^3/uL
(1.4-6.5)
Absolute Monos (auto) 1.7 H 10^3/uL
(0.1-0.6)
Immature Gran % 0.7 H %
(0-0.5)
Neutrophils % 80.9 H %
(42.2-75.2)
Lymphocytes % 8.5 L %
(20.5-51.1)
Sodium 132 L mmol/L
(135-145)
BUN 7 L mg/dl
(9-20)
Creatinine 0.5 L mg/dL
(0.7-1.3)
Glucose 106 H mg/dl
(70-99)
AST 16 L U/L
(17-59)
Alkaline Phosphatase 570 H U/L
(38-126)
Total Protein 5.9 L g/dl
(6.3-8.2)
Albumin 2.4 L g/dl
(3.5-5.0)
Crossmatch IS Only See Detail
12/24/24 17:40
12/24/24 17:40
Vital Signs
Initial and Last Documented VS:
Initial Vital Signs
Temp Pulse Resp BP Pulse Ox
98.9 F 126 18 105/63 100
12/24/24 16:25 12/24/24 16:25 12/24/24 16:25 12/24/24 16:25 12/24/24 16:25
Last Documented Vital Signs
Temp Pulse Resp BP Pulse Ox
97.9 F 74 22 91/60 98
12/26/24 07:03 12/26/24 06:00 12/26/24 06:00 12/26/24 06:00 12/26/24 06:00
Fuel Manager consulted with Physician
Fuel Manager consulted with physician?: Yes
Name of Physician Consulted: Courtney
<Pavel Valdez, DO - Last Filed: 12/26/24 09:27>
Orders/Labs/Results
Orders:
Orders
12/24/24 Dinner
NPO
Allow oral meds: Yes
Allow clear liquids: Sips of Clears
12/24/24 16:58
CT Pelvis With Iv Contrast Urgent
Comment:
Reason For Exam: Large ?abscess? left groin
12/24/24 17:40
Complete Blood Count/With Diff Urgent
Comprehensive Metabolic Panel Urgent
12/24/24 19:09
Piperacillin/Tazo 3.375 Gram [Zosyn] 3.375 gram in 50 ml IV NOW
12/24/24 19:14
ColoRectal Surgery Consult Urgent
Consulting Provider: Chavo Higgins
Was physician already notified: Yes
Reason for consult: L groin abscess
12/24/24 19:20
* Blood Bank Products Urgent
Blood Bank Products: *Packed RBC Leuko(PRBC's)
Quantity: 1
Transfuse Today: Yes
Reason: Anemia
IV Insert/Care/Rem.- Treatment PRN
12/24/24 19:25
Vancomycin 1 Gram/200 ml [Vancocin] 1 gram in 200 ml IV NOW
12/24/24 19:28
Type And Crossmatch [Type+Screen] Urgent
12/24/24 19:59
Admit/Transfer Patient As Directed
Co-Sign Provider:
Level of Care: Inpatient admission
Assign to:: Telemetry
Physician / Group: Adebamiro
Diagnosis: abscess of left groin
Reason for Telemetry: Other
Other Reason for Telemetry: blood loss anemia
Date to Stop Telemetry: 12/26/24
Time to Stop Telemetry: 11:00
Reason for Hospitalization: intraabdominal mass and abscess
Expected length of stay greater than two midnights?: Yes
ELOS- Estimated Length of Stay in days: 2
I certify the patient meets the requirements for IP care: Yes
PRN Pain Medication Management As Directed
May give lesser potent ordered pain med per pt: Yes
preference::
Protocol:: Medication orders for pain may be administered in a
manner that supports deferring to patient preference
when the pt is:
- Requesting an ordered lesser potent pain medication.
Least to most potent pain medications are defined
as: acetaminophen < NSAID < tramadol < opioids
(morphine, oxycodone, hydromorphone).
- Requesting a lesser dose of the same medication IF
ORDERED.
- Requesting a less intrusive route of administration
if both routes are prescribed by the provider (PO <
IV).
12/24/24 20:00
Code Status As Directed
Resuscitation Status: Full Code
12/24/24 20:05
0.9% Sodium Chloride 500 ml [Nss] 500 ml IV BOLUS
12/24/24 21:18
Acetaminophen [Tylenol] 650 mg PO Q4HPRN PRN
Bisacodyl [Dulcolax] 10 mg RECTAL [id number] PRN
Dextrose 5%/0.9%Sodchl 1000 ml [D5/0.9% Sodium Chloride] 1,000 ml IV 100 mls/hr
Docusate W/Senna [Senokot-S] 1 tablet PO BIDPRN PRN
HYDROmorphone [Dilaudid] 0.5 mg IV Q4HPRN PRN
Ondansetron Injectable [Zofran] 4 mg IV Q6HPRN PRN
Polyethylene Glycol Powder [Miralax] 17 grams PO DAILYPRN PRN
12/24/24 21:18
Activity As Directed
Activity Level: With Assistance
Pneumatic Compression Sleeves As Directed
Type: Knee high
Vital Signs As Directed
Frequency: q4h
Pulse Ox/spot Check [RESP] Routine
Quantity: 1
DX Deep Vein Thrombosis Video Routine
12/24/24 21:41
Blood Culture Q30M
FELIBERTO Source: Blood/Venous
Specimen Description:
12/24/24 21:42
Blood Culture Q30M
FELIBERTO Source: Blood/Venous
Specimen Description:
12/25/24 02:00
Piperacillin/Tazo 3.375 Gram [Zosyn] 3.375 gram in 50 ml IV Q6H
12/25/24 04:32
Basic Metabolic Panel IN AM
Complete Blood Count/No Diff IN AM
Magnesium IN AM
Prothrombin Time IN AM
12/26/24 11:00
DC Protocol for Telemetry ONCE
Abnormal Lab Results
12/24/24 12/24/24
17:40 19:28
WBC 18.0 H 10^3/uL
(4.8-10.8)
RBC 2.42 L 10^6/uL
(4.70-6.10)
Hgb 6.8 L* g/dL
(13.0-18.0)
Hct 21.4 L %
(39.0-52.0)
MCHC 31.8 L g/dL
(33.0-37.0)
RDW 18.1 H %
(11.5-14.5)
Abs Immat Gran (auto) 0.1 H 10^3/uL
(0-0.05)
Absolute Neuts (auto) 14.6 H 10^3/uL
(1.4-6.5)
Absolute Monos (auto) 1.7 H 10^3/uL
(0.1-0.6)
Immature Gran % 0.7 H %
(0-0.5)
Neutrophils % 80.9 H %
(42.2-75.2)
Lymphocytes % 8.5 L %
(20.5-51.1)
Sodium 132 L mmol/L
(135-145)
BUN 7 L mg/dl
(9-20)
Creatinine 0.5 L mg/dL
(0.7-1.3)
Glucose 106 H mg/dl
(70-99)
AST 16 L U/L
(17-59)
Alkaline Phosphatase 570 H U/L
(38-126)
Total Protein 5.9 L g/dl
(6.3-8.2)
Albumin 2.4 L g/dl
(3.5-5.0)
Crossmatch IS Only See Detail
12/24/24 17:40
12/24/24 17:40
Vital Signs
Initial and Last Documented VS:
Initial Vital Signs
Temp Pulse Resp BP Pulse Ox
98.9 F 126 18 105/63 100
12/24/24 16:25 12/24/24 16:25 12/24/24 16:25 12/24/24 16:25 12/24/24 16:25
Last Documented Vital Signs
Temp Pulse Resp BP Pulse Ox
97.9 F 74 22 91/60 98
12/26/24 07:03 12/26/24 06:00 12/26/24 06:00 12/26/24 06:00 12/26/24 06:00
<Tiffanie Tapia, SYNTHETIC FILAMENT EXTRUDER - Last Filed: 12/25/24 15:55>
MDM/Problems Addressed
Differential Diagnosis Includes:
Groin abscess, hernia, vascular disruption
MDM/Problems Addressed:
69-year-old male with history of ulcerative colitis, metastatic colorectal carcinoma, admitted 12/10-12/14 for hyperglycemia of malignancy. Here today for painful swollen area left groin worsening over past 2 days. Denies fever/chills. Having daily
BM's, no trouble urinating
Had bilateral inguinal hernia repairs, pt states last one on left, 2018.
Afebrile, NAD
Large abscess left groin. No palpable pulsation. W hx of metastatic CA, Concern for vascular involvement vs abscess
Dr. Valdez in to evaluate
Consulted General Surgery Dr. Velasco who recommends CT scan w IV contrast
1829
CBC: CBC 18.0, Hgb 6.8 (was 9.1 10 days ago)
CMP consistent with previous
1899
Ct pelvis w IV contrast radiology report read: IMPRESSION: History of colon cancer with colonic stent present.
As described, there is a mass in the left groin which most likely represents an abscess, question whether this could be from perforation of the colon with resultant abscess.
Dr. Higgins, Colorectal surgeon consulted and will be in to see pt.
Hospitalist notified of admission.
Plan: IV FrancescaoSergio, admit, colorectal consult
Chronic conditions affecting care: Cancer
<Tiffanie Tapia, SYNTHETIC FILAMENT EXTRUDER - Last Filed: 12/25/24 15:55>
*Critical Care Note
Total Time (30-74mins, 75-104mins- exclusive of procedures): Not Applicable
ED Attending Note
<Tiffanie Tapia, SYNTHETIC FILAMENT EXTRUDER - Last Filed: 12/25/24 15:55>
-
Portions of this chart may have been created with voice recognition software.� Occasional wrong word or��sound alike� substitutions may have occurred due to the inherent limitations of voice recognition software.
<Pavel Valdez, DO - Last Filed: 12/26/24 09:27>
ED Attending Note
Patient seen and examined by attending physician: Yes
ED Attending Note:
I have reviewed and agree with history and treatment plan by Mai Tapia. My exam revealed abscess left groin. CT scan shows communicating tumor perforation to abscess. Patient seen and evaluated by Dr. Higgins. Admit to hospitalist.
Discharge Plan
Departure
Patient Disposition: Admit
Date of Disposition: 12/24/24
Time of Disposition: 19:14
Presentation/result/management discussed w/ accepting MD/DO: Hospitalist
Condition: Fair
Discharge Problem:
Abscess of groin, left, Anemia, Malignant neoplasm of colorectal area with metastasis
Interventions
Interventions:
*Risk Screen - Suicide Last Done: 12/24/24 21:30
*General Assessment Last Done: 12/24/24 16:25
*Neglect/Abuse Screening Last Done: 12/24/24 16:25
*ED- Fall Risk Assessment Last Done: 12/24/24 17:52
*ED COVID-19 Vaccine History Last Done: 12/24/24 21:30
*Nursing Disposition Last Done: 12/24/24 21:22
WS-Cwbmbd-Fgeqzedrjv Assessment Last Done: 12/24/24 17:51
Discharge Date and Time
Discharge Date/Time: 12/24/24 21:22
[2024-12-24 17:58] LABS: % Basophils 0.2 % (0-2); % Eosinophils 0.5 % (0-6); % Immature Granulocytes 0.7 % (0-0.5); % Lymphocytes 8.5 % (20.5-51.1); % Monocytes 9.2 % (1.7-9.3); % Neutrophils 80.9 % (42.2-75.2); Absolute Eosinophils 0.1 10^3/uL (0-0.7); Absolute Immature Granulocytes 0.1 10^3/uL (0-0.05); Absolute Lymphocytes 1.5 10^3/uL (1.2-3.4); Absolute Monocytes 1.7 10^3/uL (0.1-0.6); Absolute Neutrophils 14.6 10^3/uL (1.4-6.5); Hematocrit 21.4 % (39.0-52.0); Hemoglobin 6.8 g/dL (13.0-18.0); Mean Corp Hgb Conc. 31.8 g/dL (33.0-37.0); Mean Corpuscular Hgb 28.1 pg (27.0-31.0); Mean Corpuscular Volume 88.4 fL (80.0-94.0); Nucleated Red Blood Cells % 0 % (-); Platelet Count 228 10^3/uL (130-400); Red Blood Cell Count 2.42 10^6/uL (4.70-6.10); Red Cell Dist. Width 18.1 % (11.5-14.5)
[2024-12-24 18:14] LABS: ALT (SGPT) 14 U/L (0-50); AST (SGOT) 16 U/L (17-59); Albumin 2.4 g/dl (3.5-5.0); Alkaline Phosphatase 570 U/L (38-126); Blood Urea Nitrogen 7 mg/dl (9-20); Calcium 8.9 mg/dl (8.4-10.2); Carbon Dioxide 28 mmol/L (22-30); Chloride 103 mmol/L (98-107); Glucose 106 mg/dl (70-99); Potassium 4.1 mmol/L (3.5-5.1); Sodium 132 mmol/L (135-145); Total Bilirubin 0.7 mg/dl (0.2-1.3); Total Protein 5.9 g/dl (6.3-8.2); eGFR > 60.00
[2024-12-24 19:11] VITALS: BMI 14.7
[2024-12-24] MEDS: ZOSYN 50 IV (19:27)
--- NOTE | 2024-12-24 19:29 | HPS.HSE ---
Family Physician
-
Family Physician: Ruel Edward DO
Chief Complaint
-
Abdominal pain
History of Present Illness
This is a 69-year-old with past medical history significant for metastatic colon cancer with mets to the liver and a large intra-abdominal tumor who presents to the emergency department with 2 days of painful left swelling in the left groin.
Patient was recently admitted to the hospital for hypercalcemia of malignancy leukocytosis and anemia. Treated with empiric antibiotics given IV fluids for over the hypercalcemia and received 1 dose of panitumumab. Calcium level normalized patient
felt better. He was diagnosed with cachexia/severe protein caloric malnutrition. At time of discharge he was encouraged to discuss goals of care and prognosis and with his oncologist. He verbalized understanding at the time. Calcium
supplementation was discontinued.
He denies any intra-abdominal pain. He denied having fevers or chills. He denied feeling dizzy or lightheaded. He denies any nausea or vomiting. He reports some mild sharp upper chest discomfort. Patient denies feeling dizzy or lightheaded.
In the emergency department he had blood pressure 105/63, temp of 98.9 and a pulse rate of 126.
Hemoglobin was 6.8, white count 18 platelet count 228. Electrolytes BUN and creatinine were mostly normal range except for a sodium of 132.
CT scan of the abdomen pelvis revealed that in the 'left groin anteriorly, located anterior to the common femoral vessels, there is a mass which has mixed fluid and air central density with a thickened enhancing wall. This mass measures 6.9 cm
transverse by 4.2 cm AP by 8.3 cm craniocaudal. This mass is suspicious for an abscess. Question whether this could be from perforation of the colon with resultant abscess.
Of note, this does not appear to represent a colonic hernia. Also, small bowel loops do not appear to extend close to this region of the left groin, and it is felt unlikely that this represents small bowel loops.'
Medical History
Past Medical History
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
Past Surgical History: Reports Other (Hernia repair)
Social History
Tobacco: Former Smoker (Quit over 30 years ago)
Alcohol: Former (Remote drinking history quit many decades ago)
Drug: None
Personal:
Living: With Family
Employment: Not Employed
Family History
Family History: Not pertinent
Allergies / Home Medications
Allergies reflects when Allergies were last updated in [employer].
Home Medications with original date entered in [employer]
Allergy/Medication List:
Allergies
Allergy/AdvReac Type Severity Reaction Status Date / Time
bee venom protein (honey bee) Allergy Hives Verified 12/24/24 16:25
Home Medications
ascorbic acid (vitamin C) 500 mg tablet (Vitamin C) 500 mg PO DAILY Supplement 04/01/24
cholecalciferol (vitamin D3) 25 mcg (1,000 unit) tablet (Vitamin D3) 25 mcg PO DAILY Supplement 04/01/24
cyanocobalamin (vitamin B-12) 1,000 mcg tablet 1,000 mcg PO DAILY Supplement 04/01/24
magnesium oxide 400 mg PO DAILY Supplement 04/01/24
zinc sulfate 50 mg zinc (220 mg) tablet 50 mg PO DAILY Supplement 04/01/24
apixaban 2.5 mg tablet (Eliquis) 2.5 mg PO BID Blood Clot Prevention/Tx 12/10/24
Review of Systems
-
History Source: Patient
Constitutional: Reports Fatigue
EENT: Reports No Symptoms
Respiratory: Reports No Symptoms
Cardiac: Reports No Symptoms
Abdomen/GI: Reports Abdominal Pain
: Reports No Symptoms
Musculoskeletal: Reports No Symptoms
Skin: Reports No Symptoms
Neurological: Reports No Symptoms
Endocrine: Reports No Symptoms
Physical Exam
Vital Signs
Vital Signs
Temp Pulse Resp BP Pulse Ox
98.9 F 126 17 105/63 100
12/24/24 16:25 12/24/24 16:25 12/24/24 18:29 12/24/24 16:25 12/24/24 19:09
Physical Exam
General: No Apparent Distress and Appears Chronically Ill
HEENT: Anicteric, Moist mucous membranes, PERRLA and Neck Nontender
Respiratory: Clear
Cardiac: S1/S2 and Tachycardia
Breast: Deferred by me
GI: Soft, Non Tender, Non Distended and Normal Bowel Sounds
Rectal: Deferred by Provider
Genito-urinary: Deferred by me
Musculoskeletal: No Clubbing, No Cyanosis, Edema, Left Lower Extremity (trace) and Edema, Right Lower Extremity (trace)
Skin: Warm and Other (large 5 cm nodular erythematous and tender lesion on the left groin c/w abscess/hematoma)
Neuro: AO x 3
Psych: Calm
Laboratory Results
-
12/24/24 17:40
12/24/24 17:40
Laboratory Results
Total Bilirubin 0.7 mg/dl (0.2-1.3) 12/24/24 17:40
AST 16 U/L (17-59) L 12/24/24 17:40
ALT 14 U/L (0-50) 12/24/24 17:40
Alkaline Phosphatase 570 U/L (38-126) H 12/24/24 17:40
Data Reviewed
-
CT Scan: Report Reviewed by me
Lab Data: Labs Reviewed by me
Old Records: Reviewed
Impression/Plan
-
IMPRESSION:
69-year-old with history of metastatic colon cancer with mets to the liver status post FOLFOX and last chemo was panitumumab 1 presents to the emergency department with 2 days of expansive left groin lesion which appears to be from related to an
intraabdominal mass which has mixed fluid and air central density with a thickened enhancing wall. This mass measures 6.9 cm transverse by 4.2 cm AP by 8.3 cm craniocaudal. This mass is suspicious for an abscess with question of perforation and
resultant abscess. After discussing with surgery, the abscess appears contained and not associated with intraabdominal free air. The lesion is extremely complicated and definitive surgical management is not immediately required and further
planning to be carried out. In the mean-time, abscess drainage can be accomplished in the OR tomorrow.
PLAN:
1. Groin abscess related to intraabdominal mass
- admit to telemetry
- NPO after midnight
- pain control (minimal pain currently)
- blood cultures
- IV zosyn for now
- hold ac pending surgery, check inr
- surgery aware and consulted
- ID consultation
2. Anemia - No evidence of acute blood loss. Hgb 6.8, tachycardic. Possibly supprssion s/p chemo.
- transfuse for Hgb goal of around 8 for pending surgery
- hold anticoagulation
- H&H q8h
3. Metastatic colon Ca
- hematology consultation
4. Hyponatremia - hypovolemic
- IV NS for now and reaassess
DVT PPX - SCDs for now pending surgery
Code status - patient remains full code
[2024-12-24] MEDS: VANCOCIN 200 IV (19:43)
--- NOTE | 2024-12-24 19:56 | CON.MD ---
Consultation - Medical
-
Full consult to be dictated.
History, vitals, labs, imaging reviewed. Patient seen and examined.
69-year-old male known to our service with what appears to be a left groin abscess due to possible contained perforation of descending/sigmoid junction cancer with likely involved left inguinal mesh. The descending/sigmoid junction cancer has a
colonic stent in place traversing the area. He has multiple enlarging hepatic metastases despite a number of rounds of chemotherapy under medical oncology. He is cachectic in appearance, having lost a lot of weight over the last year. He has been
having bowel function and tolerating food. He has had 3 days of left groin pain and swelling. On exam there is erythema and fluctuance of the left groin area as well as tenderness. Abdomen is scaphoid and nontender. He is tachycardic but
normotensive. He has leukocytosis with a WBC count of 18 and significant anemia with a hemoglobin of 6.8. He is malnourished with an albumin of 2.4. This is obviously a challenging situation. Agree with admitting to the hospital for medical
optimization. Agree with transfusions overnight. Would hold his chronic low-dose Eliquis for now. I discussed the situation with the patient in detail at the bedside. Recommend a trip to the OR tomorrow morning for incision and drainage of the
area. This will hopefully temporize things. It may ultimately lead to a fistula. Definitive treatment, if considered, may entail partial colectomy with mesh excision. This would be a undertaking with real risk and there is no urgency to this.
However it may be considered later during this hospitalization if all agree. For now, the plan is incision and drainage of the groin. Suggest heme-onc consultation as well.
Thanks.
[2024-12-24] MEDS: NSS 500 IV (20:48)
[2024-12-24 21:40] VITALS: BP 100/62
--- NOTE | 2024-12-24 22:00 | PTCARENOTE ---
12/24 Pt a 69 y/o M dx Blood Loss Anemia & Left Groin Mass arrived from ED at 21:18. PMH Cancer (Sigmoid adenocarcinoma with liver metastases) and Other (Anemia of chronic disease (malignancy), pulmonary embolism), former smoker (quit 30 years ago)
rmer Smoker (Quit over 30 years ago),
hypercalcemia of malignancy leukocytosis and anemia, dx with cachexia/severe protein caloric malnutrition. Hemoglobin was 6.8, Pt to received 1 Unit of PRBC overnight. I & D of L Groin Abscess scheduled for 8am tomorrow. Pt A0x3, bed in a low
position call light in reach, care ongoing.
[2024-12-24] MEDS: D5/0.9% SODIUM CHLORIDE 1000 IV (22:13)
[2024-12-24 23:00] VITALS: BP 120/70
[2024-12-25] VITALS (30 sets, daily range): BP systolic 76–108; BP diastolic 50–65; BMI 14.7
[2024-12-25] MEDS: ZOSYN 50 IV ×3 (02:59→20:25)
[2024-12-25 04:41] LABS: Hemoglobin 8.1 g/dL (13.0-18.0); Mean Corp Hgb Conc. 32.4 g/dL (33.0-37.0); Mean Corpuscular Hgb 29.2 pg (27.0-31.0); Mean Corpuscular Volume 90.3 fL (80.0-94.0); Mean Platelet Volume 10.2 fL (7.4-10.4); Platelet Count 220 10^3/uL (130-400); Red Blood Cell Count 2.77 10^6/uL (4.70-6.10); Red Cell Dist. Width 17.6 % (11.5-14.5); White Blood Cell Count 16.5 10^3/uL (4.8-10.8)
[2024-12-25 04:49] LABS: INR 1.29; PT 16.4 Sec (11.4-14.6)
[2024-12-25 05:04] LABS: Blood Urea Nitrogen 7 mg/dl (9-20); Calcium 9.1 mg/dl (8.4-10.2); Carbon Dioxide 28 mmol/L (22-30); Chloride 105 mmol/L (98-107); Estimated Creatinine Clearance 82 ml/min; Glucose 76 mg/dl (70-99); Magnesium 2.1 mg/dl (1.6-2.3); Potassium 3.9 mmol/L (3.5-5.1); Sodium 134 mmol/L (135-145); eGFR > 60.00
[2024-12-25] MEDS: D5/0.9% SODIUM CHLORIDE IV (07:49)
--- NOTE | 2024-12-25 07:49 | W.PN.HOSP.TC ---
Addendum entered and electronically signed by Jocelin Abebe MD 12/25/24 13:33:
I saw and evaluated the patient independently. I reviewed the resident�s note and agree with findings and plan as documented by Dr. Jaffe.
GENERAL: chronically ill appearing cachectic male seen in PACU
HEENT: NC/AT--O2 NC inplace
HEART: regular rate and rhythm, +S1, +S2
LUNGS : clear to auscultation bilaterally
ABDOM: soft, nontender, nondistended, + bowel sounds
EXT: no cyanosis, clubbing, or edema
NEUROLOGIC: groggy post op
septic shock due to Groin abscess related to Bowel perforation likely due to cancer with fistula formation to the mesh of the L groin/skin--s/p incision and drainage of abscess--follow cultures--cont IV zosyn--will need definitive surgery to remove
mesh along with resection of bowel and probable colostomy--will need discussion with pt (and any family) re: goals of care--ideally with END STAGE COLON CANCER METASTATIC, hospice is the most appropriate treatment/decision--unable to have that
conversation because he is hypotensive and post anesthesia--transfer to IMU--cont pressors/IVF for BP support--apprec CRS/ID input
Anemia, likely of chronic disease--no evidence of active bleeding--s/p 1 unit pRBC with improvement of HGB from 6.8 to 8.1--hold Eliquis
Metastatic colon Ca --end stage--apprec heme input--hospice appropriate
Hyponatremia--likely due to hypovolemia--cont IVF--trend sodium
DVT Proph- SCDs
Code status-- full code--need serious goals of care discussion with patient and family (if any involved)
Original Note:
Today's Communication/Plan
-
- monitor BP and potential need for pressors
Assessment / Plan
Assessment / Plan
Assessment:
69yo M pmh Stage IV colorectal CA w mets to liver, UC, anemia of chronic disease, recent admission 12/10-12/14 for hypercalcemia of malignancy admitted for pain and swelling in the L groin area. Hx b/l inguinal hernia repairs. Having daily BM's. CT
abdo/pelvis c/w abscess in L groin area, suspicious for perforation of the colon w resultant abscess.
Plan:
Groin abscess related to intraabdominal mass
- CT abdo/pelvis: mass in the left groin which most likely represents an abscess
- pain control
- bcx
- IV zosyn
- ID input appreciated
- colorectal surgery input appreciated - I&D 12/25
Hypotension
- IVF bolus
- monitor
Anemia of chronic disease
- no evidence of acute blood loss
- 1 u pRBC transfused prior to surgery
- hold anticoagulation
Hypovolemic hyponatremia
- IV NS
Diet: NPO
DVT ppx: SCDs
Code status: FULL CODE
Anticipated Discharge: > 48 hours
Subjective/Interval History
-
Date of Service: December 25, 2024
Pt is a 69yo M pmh Stage IV colorectal CA w mets to liver, UC, anemia of chronic disease, recent admission 12/10-12/14 for hypercalcemia of malignancy admitted for pain and swelling in the L groin area. Hx b/l inguinal hernia repairs. Having daily
BM's. CT abdo/pelvis c/w abscess in L groin area, suspicious for perforation of the colon w resultant abscess. Underwent I&D today. Hypotensive afterwards, even w 1 L ivf bolus. Pt seen in PACU, still groggy
Objective Data
-
Labs:
Laboratory Results
12/24/24 12/25/24 12/25/24
23:55 04:32 14:00
WBC 16.5 H
Hgb Cancelled 8.1 L Pending
Hct Cancelled 25.0 L Pending
Plt Count 220
PT 16.4 H
INR 1.29
Sodium 134 L
Potassium 3.9
Chloride 105
Carbon Dioxide 28
BUN 7 L
Creatinine 0.4 L
Glucose 76
Calcium 9.1
12/25/24
22:00
WBC
Hgb Pending
Hct Pending
Plt Count
PT
INR
Sodium
Potassium
Chloride
Carbon Dioxide
BUN
Creatinine
Glucose
Calcium
Vital Signs:
Vital Signs
Temp Pulse Resp BP Pulse Ox
97.9 F 72 18 92/56 99
12/25/24 07:25 12/25/24 07:25 12/25/24 07:25 12/25/24 07:25 12/25/24 07:25
I&O
12/24/24 12/25/24 12/26/24
06:59 06:59 06:59
Intake Total 250 / 1150 900 / 900
Balance 250 / 1150 900 / 900
Review of Systems
-
Unable to obtain full review of systems at this time due to: Acuity
History Source: Patient
Physical Exam
-
General: Cachectic
HEENT: Normocephalic and Atraumatic
Respiratory: Clear to Auscultation
Cardiac: Regular Rhythm and S1/S2
GI: Soft, Nontender, Nondistended and Normal Bowel Sounds
Musculoskeletal: No Clubbing, No Cyanosis and No Edema
Skin: Warm and Other (L groin surgical site)
Neuro: Awake
--- NOTE | 2024-12-25 07:49 | PTCARENOTE ---
Report given to UNSTACKER. Second CHG bath completed. Dentures taken out by PCT/at bedside. Brought patient to PACU for planned I&D of L Groin.
--- NOTE | 2024-12-25 08:44 | W.IMMPOSTOP ---
Addendum entered and electronically signed by Chavo Higgins MD 12/25/24 08:49:
Left VM updating patient's .
Original Note:
Surgical Immed Post Op Note
-
Primary Surgeon: Kimber Higgins MD
Assisting Surgeon: none
Pre-op Diagnosis: left groin abscess
Post-op Diagnosis: same
Procedure Performed: incision and drainage of left groin abscess
Anesthesia Type: MAC plus local
Specimen / Cultures: left groin abscess fluid
Estimated Blood Loss: 5 cc
Complications: no immediate
Operative Findings: large left groin abscess
Packed with 1 inch iodoform and covered with dry dressings.
Will send back to med surg.
Full liquid diet.
[2024-12-25] MEDS: ZOSYN IV (09:00)
[2024-12-25 09:06] LABS: Glucose - Point of Care 82 mg/dl (70-99)
[2024-12-25] MEDS: NSS 500 IV (10:37)
--- NOTE | 2024-12-25 11:44 | CON.ID ---
Consultation
-
Date/Time Consultation Requested: 12/25/24 5:54
Date/Time Consultation Performed: 12/25/24 11:44
Requesting Provider: Dr Christine
Performing Provider: Dr Walsh
Reason for Consultation: L. inguinal abscess, 2/ to contained bowel perf from malignant colon ca
Chief Complaint / Past History
Chief Complaint
abdominal pain
History of Present Illness
Mr Bennett is a 69-year-old male past medical history significant for metastatic colon cancer with mets to the liver and a large intra-abdominal tumor, severe cachexia who presented to the emergency department with 2 days of painful swelling in the
left groin. On arrival he denied fevers, chills, abdominal pain, nausea or vomiting. Did endorse upper chest pain.
In the emergency department he had blood pressure 105/63, temp of 98.9 and a pulse rate of 126. WBC 18.0, Hemoglobin was 6.8, platelet count 228. Na 134, cr 0.5, alk phos 570, t bili 0.7, ast 16, alt 14, CT scan of the abdomen pelvis with IV
contrast 'left groin anteriorly, located anterior to the common femoral vessels, there is a mass which has mixed fluid and air central density with a thickened enhancing wall.... 6.9 cm transverse by 4.2 cm AP by 8.3 cm craniocaudal... suspicious
for an abscess.' taken to the OR with colorectal surgery for I&D of abscess and packing, CRS has comment that there 'is a localized perforation of the tumor into his left prior inguinal hernia mesh leading to the groin abscess' patient is currently
on zosyn and post operatively has developed shock. ID is consulted for assistance with management.
Past History
Additional Past Medical History:
(Sigmoid adenocarcinoma with liver metastases) and Other (Anemia of chronic disease (malignancy), pulmonary embolism)
Additional Past Surgical History:
Hernia repair with mesh L groin
Allergy History:
bee venom protein (honey bee) Allergy (Verified 12/24/24 16:25)
Hives
Medications Reviewed: Yes
Social History
Tobacco: Former Smoker
Alcohol: Former
Drug: None
Family History
Family History: Not Pertinent
Review of Systems
Review of Systems
General: Negative Fever or Chills
All systems: All other systems were reviewed and were negative
Vital Signs
Temp Pulse Resp BP Pulse Ox
97.5 F 61 16 87/60 99
12/25/24 11:30 12/25/24 11:30 12/25/24 11:30 12/25/24 11:30 12/25/24 11:30
Physical Exam
Physical Exam
Constitutional: Acutely Ill, Chronically Ill and Cachetic
Cardiovascular: Regular Rate and S1/S2; Negative Murmur or Rub
Pulmonary: Clear and Symmetric; Negative Wheezes, Rales or Rhonchi
Gastrointestinal: Soft, Non Tender, Non Distended and Normal Bowel Sounds
Extremities: Other (L groin with serosanguinous drainage on the post operative dressing - deferred take down)
Skin: Warm and Dry; Negative Rash or Jaundice
Neurological: Awake
Lab / Diagnostic Study Results
12/25/24 22:00
12/25/24 04:32
Abs Immat Gran (auto) 0.1 10^3/uL (0-0.05) H 12/24/24 17:40
Absolute Neuts (auto) 14.6 10^3/uL (1.4-6.5) H 12/24/24 17:40
Absolute Lymphs (auto) 1.5 10^3/uL (1.2-3.4) 12/24/24 17:40
Absolute Monos (auto) 1.7 10^3/uL (0.1-0.6) H 12/24/24 17:40
Absolute Basos (auto) 0.0 10^3/uL (0-0.2) 12/24/24 17:40
Immature Gran % 0.7 % (0-0.5) H 12/24/24 17:40
Neutrophils % 80.9 % (42.2-75.2) H 12/24/24 17:40
Lymphocytes % 8.5 % (20.5-51.1) L 12/24/24 17:40
Monocytes % 9.2 % (1.7-9.3) 12/24/24 17:40
Eosinophils % 0.5 % (0-6) 12/24/24 17:40
Basophils % 0.2 % (0-2) 12/24/24 17:40
PT 16.4 Sec (11.4-14.6) H 12/25/24 04:32
INR 1.29 12/25/24 04:32
Microbiology Results
Micro:
12/25/24 08:30 Wound Culture - Pending
Groin - Left Gram Stain - Pending
12/25/24 08:30 Anaerobic Culture - Pending
Groin - Left
12/24/24 21:41 Blood Culture - Pending
Blood/Venous
12/24/24 21:42 Blood Culture - Pending
Blood/Venous
Assessment / Plan
Septic shock
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
End stage colon cancer
cachexia
- unless bowel perforation and mesh can both be successfully resected, this infection is not curable due to ongoing contamination of what should be a sterile site and presence of mesh. Even with attempts at medical treatment it will inevitably
result in progressive development of resistance isolates which will lead to his demise and is a risk to others around him acquiring MDROs. Even with this aggressive surgery, my opinion is that his prognosis is poor and I would recommend hospice.
When patient/family are in a position to discuss I am available to speak with them.
- blood cultures are in progress x2
- wound culture in progress
- continue zosyn, added micafungin for now
Care Review
Plan reviewed with: Physician (Dr Hernandez, Dr Russo and Dr Hobson - prognosis, management, hospice)
[2024-12-25] MEDS: LEVOPHED 250 IV (12:03)
--- NOTE | 2024-12-25 12:22 | PTCARENOTE ---
Pt from PACU low BP, AAOx3 fragile looking ID of abcess on l groin post Aris mcdonnell
[2024-12-25] MEDS: MYCAMINE 105 MG IV (12:39)
--- NOTE | 2024-12-25 13:18 | CON.ONC ---
Consultation
-
Date Consultation Requested: 12/25/24
Date Consultation Performed: 12/25/24
Requesting Provider: Dr Thomas
Performing Provider: Dr Hailee Hobson
Reason for Consultation: colorectal cancer, abscess, anemia
Impression
Impression
metastatic colorectal cancer, with liver mets and intact primary tumor; recent progression on Folfiri, progression on FOLFOX prior to that
left groin abscess, infected hernia mesh
anemia of malignancy/chemotherapy
Plan
Plan
s/p I&D this am
discussed w/ patient the ongoing issues - progressive cancer, groin infection/infected mesh, malnutrition, anemia
his cancer has progressed through two standard chemo regimens, and he's not a candidate for treatment currently with infection and malnutrition.
Unfortunately, I don't think he's candidate for chemo, further surgery, or any aggressive treatment of this infection. And unfortunately, he has poor social support and lacks insight.
Will continue to discuss goals of care over the next couple days
Patient History
History of Present Illness
This is a patient with metastatic colorectal cancer, well known to me. He had stage 4 disease at diagnosis in 2023, and unfortunately has progressed through FOLFOX and Folfiri. We recently discussed switching to third line treatment with Vectibix,
but his performance status has been poor, including recent admission for hypercalcemia of malignancy. We discussed goals of care at that time, with plans to continue discussion as an outpatient, which was postponed until 01/05/25 due to ongoing
weakness.
He presented yesterday with increasing mass in the left groin, consistent with abscess. He was taken to the OR this am for I&D. It appears that the abscess includes hernia mesh, likely translocation of bacteria from adjacent rectal mass.
Past-Medical/Surgical History
Past Medical History
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
Past Surgical History: Reports Other (Hernia repair)
Social History
Tobacco: Former Smoker (Quit over 30 years ago)
Alcohol: Former (Remote drinking history quit many decades ago)
Drug: None
Personal:
Living: With Family
Employment: Not Employed
Family History
Family History: Not pertinent
Patient Medication
�Medication �Instructions �Recorded �Confirmed �Last Taken �Type
ascorbic acid (vitamin C) 500 mg 500 mg PO DAILY Supplement 04/01/24 12/24/24 11/15/24 History
tablet (Vitamin C)
cholecalciferol (vitamin D3) 25 25 mcg PO DAILY Supplement 04/01/24 12/24/24 11/15/24 History
mcg (1,000 unit) tablet (Vitamin
D3)
cyanocobalamin (vitamin B-12) 1,000 mcg PO DAILY Supplement 04/01/24 12/24/24 11/15/24 History
1,000 mcg tablet
magnesium oxide 400 mg PO DAILY Supplement 04/01/24 12/24/24 11/15/24 History
zinc sulfate 50 mg zinc (220 mg) 50 mg PO DAILY Supplement 04/01/24 12/24/24 11/15/24 History
tablet
apixaban 2.5 mg tablet (Eliquis) 2.5 mg PO BID Blood Clot 12/10/24 12/24/24 12/24/24 History
Prevention/Tx
Active Medications
Generic Name Dose Route Start Last Admin
Trade Name Freq PRN Reason Stop Dose Admin
Acetaminophen 650 mg 12/24/24 21:18
Acetaminophen 325 Mg Tablet PO 01/21/25 21:17
Q4HPRN PRN
mild pain/SCHRADER/temp> 100.4F
Bisacodyl 10 mg 12/24/24 21:18
Bisacodyl 10 Mg Rectal Suppository RECTAL 01/21/25 21:17
[id number] PRN
constipation
Hydromorphone HCl 0.5 mg 12/24/24 21:18
Hydromorphone 0.5 Mg/0.5 Ml Syringe IV 01/07/25 21:17
Q4HPRN PRN
severe pain
Hydromorphone HCl 0.25 mg 12/25/24 07:55
Hydromorphone 0.25 Mg/0.5 Ml Syringe IV 12/26/24 07:55
PACU-Q5MPRN PRN
severe pain
Piperacillin Sod/Tazobactam Sod 3.375 gram in 50 mls @ 100 mls/hr 12/25/24 02:00 12/25/24 12:12
Zosyn IV 50 mls
Q6H MIRANDA Administration
Dextrose/Sodium Chloride 1,000 mls @ 100 mls/hr 12/25/24 08:00 12/25/24 07:49
D5/0.9% Sodium Chloride IV Not Given
.Q10H MIRANDA
Parenteral Electrolytes 1,000 mls @ 100 mls/hr 12/25/24 08:00
Normosol-R/Plasmalyte-A IV 12/26/24 07:55
PER PROTOCOL MIRANDA
Norepinephrine Bitartrate 4 mg in 250 mls @ 0 mls/hr 12/25/24 11:30 12/25/24 12:03
Levophed IV 250 mls
PER PROTOCOL MIRANDA Administration
Protocol
Per Protocol
Micafungin Sodium 100 mg/ 105 mls @ 105 mls/hr 12/25/24 12:00 12/25/24 12:39
Dextrose IV 01/04/25 11:59 105 mls
Q24H MIRANDA Administration
Meperidine HCl 12.5 mg 12/25/24 07:55
Meperidine 25 Mg/Ml Injection IV 12/26/24 07:55
PACU-Q5MPRN PRN
shivers
Morphine Sulfate 1 mg 12/25/24 07:55
Morphine 2 Mg/Ml Syringe IV 12/26/24 07:55
PACU-Q5MPRN PRN
moderate pain
Ondansetron HCl 4 mg 12/24/24 21:18
Ondansetron 4 Mg/2 Ml Vial IV 01/21/25 21:17
Q6HPRN PRN
nausea and vomiting
Ondansetron HCl 4 mg 12/25/24 07:55
Ondansetron 4 Mg/2 Ml Vial IV 12/26/24 07:55
PACU-ONCEPRN PRN
nausea/vomiting
Polyethylene Glycol 17 grams 12/24/24 21:18
Polyethylene Glycol Powder 17 Grams Packet PO 01/21/25 21:17
DAILYPRN PRN
constipation
Prochlorperazine Edisylate 5 mg 12/25/24 07:55
Prochlorperazine 10 Mg/2 Ml Vial IV 12/26/24 07:55
PACU-ONCEPRN PRN
nausea/vomiting
Senna/Docusate Sodium 1 tablet 12/24/24 21:18
Docusate W/Senna (Miriam-Colace) Tablet PO 01/21/25 21:17
BIDPRN PRN
constipation
Sodium Chloride 0 flush 12/24/24 22:00
Sodium Chloride 0.9% (Flush) Syringe IV 01/21/25 21:59
PER PROTOCOL MIRANDA
Review of Systems
-
All Other Systems: Not reviewed unless documented
Physical Exam
-
General: Appears Chronically Ill and Cachetic
HEENT: Negative Jaundice
Neurology: Non Focal
Psych: Calm
Labs
Lab Results
WBC 16.5 10^3/uL (4.8-10.8) H 12/25/24 04:32
RBC 2.77 10^6/uL (4.70-6.10) L 12/25/24 04:32
Hgb Cancelled 12/25/24 22:00
Hct Cancelled 12/25/24 22:00
MCV 90.3 fL (80.0-94.0) 05/24/25 04:32
MCH 29.2 pg (27.0-31.0) 12/25/24 04:32
MCHC 32.4 g/dL (33.0-37.0) L 12/25/24 04:32
RDW 17.6 % (11.5-14.5) H 12/25/24 04:32
Plt Count 220 10^3/uL (130-400) 12/25/24 04:32
MPV 10.2 fL (7.4-10.4) 12/25/24 04:32
Abs Immat Gran (auto) 0.1 10^3/uL (0-0.05) H 12/24/24 17:40
Absolute Neuts (auto) 14.6 10^3/uL (1.4-6.5) H 12/24/24 17:40
Absolute Lymphs (auto) 1.5 10^3/uL (1.2-3.4) 12/24/24 17:40
Absolute Monos (auto) 1.7 10^3/uL (0.1-0.6) H 12/24/24 17:40
Absolute Eos (auto) 0.1 10^3/uL (0-0.7) 12/24/24 17:40
Absolute Basos (auto) 0.0 10^3/uL (0-0.2) 12/24/24 17:40
Immature Gran % 0.7 % (0-0.5) H 12/24/24 17:40
Neutrophils % 80.9 % (42.2-75.2) H 12/24/24 17:40
Lymphocytes % 8.5 % (20.5-51.1) L 12/24/24 17:40
Monocytes % 9.2 % (1.7-9.3) 12/24/24 17:40
Eosinophils % 0.5 % (0-6) 12/24/24 17:40
Basophils % 0.2 % (0-2) 12/24/24 17:40
Creatinine 0.4 mg/dL (0.7-1.3) L 12/25/24 04:32
Vital Signs
Vital Signs
Temp Pulse Resp BP Pulse Ox
97.5 F 55 18 93/54 100
12/25/24 11:30 12/25/24 13:00 12/25/24 13:00 12/25/24 13:00 12/25/24 13:00
[2024-12-25] MEDS: D5/0.9% SODIUM CHLORIDE 1000 IV (13:55)
[2024-12-25 15:31] LABS: Lactic Acid 0.8 mmol/L (0.7-2.0)
[2024-12-26] VITALS (27 sets, daily range): BP systolic 78–106; BP diastolic 51–68
[2024-12-26] MEDS: ZOSYN 50 IV ×4 (02:37→20:02)
[2024-12-26] MEDS: D5/0.9% SODIUM CHLORIDE 1000 IV ×2 (03:42→16:43)
[2024-12-26 05:08] LABS: Hematocrit 26.6 % (39.0-52.0); Hemoglobin 8.5 g/dL (13.0-18.0); Mean Corpuscular Hgb 28.3 pg (27.0-31.0); Mean Corpuscular Volume 88.7 fL (80.0-94.0); Mean Platelet Volume 10.9 fL (7.4-10.4); Platelet Count 233 10^3/uL (130-400); Red Cell Dist. Width 17.8 % (11.5-14.5)
[2024-12-26 05:32] LABS: ALT (SGPT) 12 U/L (0-50); AST (SGOT) 16 U/L (17-59); Albumin 2.2 g/dl (3.5-5.0); Alkaline Phosphatase 540 U/L (38-126); Blood Urea Nitrogen 5 mg/dl (9-20); Calcium 8.7 mg/dl (8.4-10.2); Carbon Dioxide 25 mmol/L (22-30); Chloride 108 mmol/L (98-107); Estimated Creatinine Clearance 82 ml/min; Glucose 105 mg/dl (70-99); Potassium 3.6 mmol/L (3.5-5.1); Sodium 137 mmol/L (135-145); Total Bilirubin 0.8 mg/dl (0.2-1.3); Total Protein 5.5 g/dl (6.3-8.2); eGFR > 60.00
--- NOTE | 2024-12-26 05:55 | PTCARENOTE ---
Pt appearing to be able to get some rest last nigh. Pt respirations even and unlabored. Pt continues on LEVO gtt currently at 1mcg/min. Pt washed this AM. Pt Left groin wound dressing found to be misplaced and saturated through to bed sheets.
Dressing changed, original packing in place.
--- NOTE | 2024-12-26 07:01 | W.PN.HOSP.TC ---
Addendum entered and electronically signed by Jocelin Abebe MD 12/26/24 13:53:
I saw and evaluated the patient independently. I reviewed the resident�s note and agree with findings and plan as documented by Dr. Jaffe.
GENERAL: chronically ill appearing cachectic male in no apparent distress
HEENT: NC/AT
HEART: regular rate and rhythm, +S1, +S2
LUNGS : clear to auscultation bilaterally
ABDOM: soft, nontender, nondistended, + bowel sounds
EXT: no cyanosis, clubbing, or edema
NEUROLOGIC: nonfocal
septic shock due to Groin abscess related to Bowel perforation likely due to cancer with fistula formation to the mesh of the L groin/skin--s/p incision and drainage of abscess--wound culture with viridans strep--cont IV zosyn/micafungin--will need
definitive surgery to remove mesh along with resection of bowel and probable colostomy but high risk--started discussion about hospice with pat and by phone--she plans to come in today after 2PM--with END STAGE METASTATIC COLON CANCER, hospice
is the most appropriate treatment/decision--wean pressors as able--apprec CRS/ID/heme input
Anemia, likely of chronic disease--no evidence of active bleeding--s/p 1 unit pRBC with improvement of HGB from 6.8 to 8.1--hold Eliquis
Metastatic colon Ca --end stage--apprec heme input--hospice appropriate
Hyponatremia--likely due to hypovolemia--cont IVF--trend sodium
DVT Proph- SCDs
Code status-- full code--need serious goals of care discussion with patient and family (if any involved)
Original Note:
Today's Communication/Plan
-
- goals of care
Assessment / Plan
Assessment / Plan
Assessment:
69yo M pmh Stage IV colorectal CA w mets to liver, UC, anemia of chronic disease, recent admission 12/10-12/14 for hypercalcemia of malignancy admitted for pain and swelling in the L groin area. Hx b/l inguinal hernia repairs. Having daily BM's. CT
abdo/pelvis c/w abscess in L groin area, suspicious for perforation of the colon w resultant abscess.
Plan:
Groin abscess related to intraabdominal mass
- CT abdo/pelvis: mass in the left groin which most likely represents an abscess
- pain control
- bcx: no growth 24h
- wound cx: Viridans Streptococcus group
- IV zosyn
- ID input appreciated
- colorectal surgery input appreciated - I&D 12/25
- oncology input appreciated
- goals of care discussion initiated - will continue once arrives
Hypotension
- levophed gtt
- monitor
Anemia of chronic disease
- no evidence of acute blood loss
- 1 u pRBC transfused prior to surgery
- hold anticoagulation
Hypovolemic hyponatremia
- IV NS
Diet: Full liquids
DVT ppx: SCDs
Code status: FULL CODE
Anticipated Discharge: > 48 hours
Subjective/Interval History
-
Date of Service: December 26, 2024
No acute overnight events. On 1 mcg/min levophed. Spoke with over the phone regarding pt's stay. She will be coming in later today for a family discussion.
Objective Data
-
Labs:
Laboratory Results
12/26/24
03:52
WBC 17.0 H
Hgb 8.5 L
Hct 26.6 L
Plt Count 233
Sodium 137
Potassium 3.6
Chloride 108 H
Carbon Dioxide 25
BUN 5 L
Creatinine 0.4 L
Glucose 105 H
Calcium 8.7
Total Bilirubin 0.8
AST 16 L
ALT 12
Alkaline Phosphatase 540 H
Vital Signs:
Vital Signs
Temp Pulse Resp BP Pulse Ox
98.2 F 74 22 91/60 98
12/26/24 03:00 12/26/24 06:00 12/26/24 06:00 12/26/24 06:00 12/26/24 06:00
I&O
12/25/24 12/26/24 12/27/24
06:59 06:59 06:59
Intake Total 250 / 1150 3920.8 / 3920.8
Output Total 750 / 750
Balance 250 / 1150 3170.8 / 3170.8
--- NOTE | 2024-12-26 09:23 | W.PN.ID1 ---
Date of Service
Date of Service: December 26, 2024
Today's Communication
- unless bowel perforation and mesh can both be successfully resected, this infection is not curable due to ongoing contamination of what should be a sterile site and presence of mesh. Even with attempts at medical treatment it will inevitably
result in progressive development of resistance isolates which will lead to his demise and is a risk to others around him acquiring MDROs. Even with this aggressive surgery, my opinion is that his prognosis is poor and I would recommend hospice.
- Note that most patients with advanced cancer ultimately due to infections.
- blood cultures are in progress x2
- wound culture notable for VGS
- continue zosyn and micafungin for now
Assessment / Plan
Septic shock - improved
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
End stage colon cancer
Severe cachexia
- unless bowel perforation and mesh can both be successfully resected, this infection is not curable due to ongoing contamination of what should be a sterile site and presence of mesh. Even with attempts at medical treatment it will inevitably
result in progressive development of resistance isolates which will lead to his demise and is a risk to others around him acquiring MDROs. Even with this aggressive surgery, my opinion is that his prognosis is poor and I would recommend hospice.
- Note that most patients with advanced cancer ultimately due to infections.
- blood cultures are in progress x2
- wound culture notable for VGS
- continue zosyn and micafungin for now
Chief Complaint
-: Other (groin abscess, mesh infection, shock)
Subjective / Review of Systems
now afebrile
bp stabilizing on minimal pressors
tolerating current therapies
more alert today
Vital Signs / Physical Exam
Vital Signs
Vital Signs
Temp Pulse Resp BP Pulse Ox
97.9 F 74 22 91/60 98
12/26/24 07:03 12/26/24 06:00 12/26/24 06:00 12/26/24 06:00 12/26/24 06:00
Physical Exam
Constitutional: No Acute Distress and Cachetic
Cardiovascular: Regular Rate and S1/S2; Negative Murmur or Rub
Pulmonary: Clear and Symmetric; Negative Wheezes or Rales
Gastrointestinal: Soft, Non Tender, Non Distended and Normal Bowel Sounds
Skin: Warm and Dry; Negative Rash or Jaundice
Objective Data
Lab Data
Lab Results
12/26/24 03:52
12/26/24 03:52
PT 16.4 Sec (11.4-14.6) H 12/25/24 04:32
INR 1.29 12/25/24 04:32
Estimated Creat Clear 82 ml/min 12/26/24 03:52
Lactic Acid 0.8 mmol/L (0.7-2.0) 12/25/24 15:09
Total Bilirubin 0.8 mg/dl (0.2-1.3) 12/26/24 03:52
AST 16 U/L (17-59) L 12/26/24 03:52
ALT 12 U/L (0-50) 12/26/24 03:52
Alkaline Phosphatase 540 U/L (38-126) H 12/26/24 03:52
Most recent labs reviewed.
Micro Results:
12/25/24 08:30 Anaerobic Culture - Preliminary
Groin - Left Culture pending. Anaerobic cultures are examined after 3
days incubation. Additional information to follow.
12/25/24 08:30 Wound Culture - Preliminary
Groin - Left Viridans Streptococcus Group
Gram Stain - Preliminary
12/24/24 21:42 Blood Culture - Preliminary
Blood/Venous No Growth in 24 hours- Final report to follow
12/24/24 21:41 Blood Culture - Preliminary
Blood/Venous No Growth in 24 hours- Final report to follow
Care Review
Plan reviewed with: Physician (Dr Abebe - discussion with )
--- NOTE | 2024-12-26 10:20 | PTCARENOTE ---
Per MD, multiple attempts made to reach to discuss GOC without success. Pt's called pt's cell phone, very upset that she has not received a call with an update. Upon questioning , phone numbers were outdated. Updated phone numbers
obtained. Dr. Abebe updated at length via phone.
--- NOTE | 2024-12-26 10:21 | PTCARENOTE ---
Per MD, multiple attempts made to reach to discuss GOC without success. Pt's called pt's cell phone, very upset that she has not received a call with an update. Phone numbers obtained and confirmed. Dr. Abebe updated at length
via phone.
--- NOTE | 2024-12-26 10:33 | W.PN.CRS1 ---
Addendum entered and electronically signed by Chavo Higgins MD 12/26/24 11:33:
I saw and examined the patient.
The DIRECTOR OF MOBILE MARKETING's note was reviewed and I agree with the note.
Comment:
Seen earlier with DIRECTOR OF MOBILE MARKETING.
Admits to groin discomfort.
Afebrile. HR 85. BP borderline low on Levo.
Abdomen scaphoid and nontender. Left groin with less cellulitis. Dressings changed and packing removed.
Patient with left groin abscess due to possible contained perforation of descending/sigmoid junction cancer with likely involved left inguinal mesh. On low dose levophed for BP support. I discussed the situation with the patient in detail at the
bedside. Definitive treatment, if considered, may entail partial colectomy with mesh excision. This would be a undertaking with real risk, which he may not survive or do well with, given his SIRS and malnutrition. Alternative would be Hospice,
which I believe is the better alternative. He was noncommittal and will speak to his about this.
Original Note:
Today's Communication / Plan
-
ABX
Wound care
Assessment/Plan
-
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 Now presenting
with left groin abscess due to possible contained perforation of descending/sigmoid junction cancer with likely involved left inguinal mesh.
POD #1 I&D of left groin
Leukocytosis with slight uptrend. H/H stable s/p one unit of blood preop
CX from I&D pending, prelim with viridans strep
Hypotension post operatively and moved to IMU for IV pressors. On 1mcg of levophed currently
Afebrile
--ABX as per ID
--Diet as tolerated, for now he would prefer to remain on FLD. Supplement shakes added.
--Medical management as per primary team
--Dressing changed at bedside, site is draining well
--Trend labs/exams
Discussion with patient at bedside today regarding his diagnosis. Difficult situation as he would require major surgery to completely clear this infection which would involve removing not only the infected mesh in his left groin but also the
affected portion of the colon/tumor which has likely eroded/perforated causing this current infection. Given the invasiveness of the tumor this would be a complicated case with high risk of injury to surrounding structures and would also require
colostomy creationl. He is malnourished (BMI 14.7) and still requiring BP support with Levophed after anesthesia yesterday for I&D: would anticipate that major surgery would be long and difficult recovery with significant risks. Discussed palliative
care/hospice as another option as well which he notes that he will consider.
Subjective Data
Procedure
12/25/2024
Subjective Data
Date of Service: December 26, 2024
Pt seen and examined at bedside with Dr. Higgins. Left groin wound tender but manageable. Tolerating full liquids and would prefer to stay on this diet. Denies abdominal pain.
Objective Data
-
Vital Signs
Temp Pulse Resp BP Pulse Ox
97.9 F 85 20 94/55 98
12/26/24 07:03 12/26/24 10:00 12/26/24 10:00 12/26/24 10:00 12/26/24 10:00
Intake & Output
12/25/24 12/26/24 12/27/24
06:59 06:59 06:59
Intake Total 250 / 1150 3920.8 / 3920.8
Output Total 750 / 750 200 / 200
Balance 250 / 1150 3170.8 / 3170.8 -200 / -200
Intake:
Oral fluids 180 / 180
IV fluids (Total) 3100 / 3100
norm saline 1000 / 1000
normosol 500 / 500
IV piggybacks 390.8 / 390.8
Blood products 250 / 250
Blood Product Amount Infused ( 250 / 250
mL)
Packed Rbc Leukoreduced Unit 250 / 250
[id number]
Output:
Urine, Voided 750 / 750 200 / 200
Lab Results
12/26/24 03:52
12/26/24 03:52
Physical Exam
-
General: No Acute Distress, AOx3 and Other (temporal muscle wasting, cachexia )
Abdomen: Soft, Non Distended and Non Tender
Wound: Dressing Changed (left groin packing removed with some purulence on gauze. wound is draining well from debridement site)
--- NOTE | 2024-12-26 11:33 | PTCARENOTE ---
Pt's SBP over 90, levo weaned off.
[2024-12-26] MEDS: MYCAMINE 105 MG IV (12:59)
[2024-12-26] MEDS: LEVOPHED 250 IV (13:32)
--- NOTE | 2024-12-26 13:35 | PTCARENOTE ---
Pt's SBP less than 90. Dr. Abebe and Dr. Jaffe notified. Order to restart levo received- see intervention.
--- NOTE | 2024-12-26 15:08 | W.PN.ONC ---
Today's Communication / Plan
-
Was hoping to meet with patient and his , who was supposed to come in this afternoon, but she did not arrive, and she did not answer my phone calls to both cell and home numbers (verified in our office records as well.)
I discussed with Michael the fact that his infection and cancer are not amenable to treatment. He will not be made well with antibiotics, surgery and/or chemotherapy. His malnutrition and poor performance status further complicates his care. Discussed
pursuing comfort measures at home.
I was hoping to speak to his before consulting hospice, but unfortunately, I've been able to do so.
Case d/w primary team, colorectal surgery and ID.
Impression
Impression
metastatic colorectal cancer, with liver mets and intact primary tumor; recent progression on Folfiri, progression on FOLFOX prior to that
left groin abscess
anemia of malignancy/chemotherapy
Plan
Plan
Was hoping to meet with patient and his , who was supposed to come in this afternoon, but she did not arrive, and she did not answer my phone calls to both cell and home numbers (verified in our office records as well.)
I discussed with Michael the fact that his infection and cancer are not amenable to treatment. He will not be made well with antibiotics, surgery and/or chemotherapy. His malnutrition and poor performance status further complicates his care. Discussed
pursuing comfort measures at home.
I was hoping to speak to his before consulting hospice, but unfortunately, I've been able to do so.
Case d/w primary team, colorectal surgery and ID.
Subjective/Objective
Subjective/Objective
no new complaints
Vital Signs:
Vital Signs
Temp Pulse Resp BP Pulse Ox
97.8 F 74 12 98/62 99
12/26/24 15:06 12/26/24 14:00 12/26/24 14:00 12/26/24 14:00 12/26/24 14:00
Lab Results:
Laboratory Data
WBC 17.0 10^3/uL (4.8-10.8) H 12/26/24 03:52
Hgb 8.5 g/dL (13.0-18.0) L 12/26/24 03:52
Plt Count 233 10^3/uL (130-400) 12/26/24 03:52
PT 16.4 Sec (11.4-14.6) H 12/25/24 04:32
INR 1.29 12/25/24 04:32
eGFR > 60.00 12/26/24 03:52
Orders
Orders
Orders From Last 24 Hours
12/26/24 03:52
CBC/No Diff [Complete Blood Count/No Diff] IN AM
[2024-12-26] MEDS: D5/0.9% SODIUM CHLORIDE IV (16:40)
--- NOTE | 2024-12-26 17:21 | W.PN.UPDATE ---
Update Note
Progress Note Update
Pt's and sister present at bedside. Family discussion took place with Dr. Abebe and Dr. Higgins via phone. Pt's poor prognosis and futility of medical/surgical management in the setting of stage IV colon cancer explained. Pt and family
verbalized understanding. Comfort care and hospice explained, including different options. Discussed code status as well and recommend updating it to DNR if pursuing comfort care. Pt and family wish to discuss the situation further amongst
themselves. No decisions made at this time regarding code status or hospice.
--- NOTE | 2024-12-26 17:36 | PTCARENOTE ---
audio visual equipment rental clerk movie projectionist in to see pt and family.
--- NOTE | 2024-12-26 18:37 | PTCARENOTE ---
Per priest felicia is en route.
[2024-12-26] MEDS: TYLENOL 650 MG PO (21:00)
--- NOTE | 2024-12-26 23:16 | PTCARENOTE ---
Patient AAOx3, flat and withdrawn. NSR on the monitor. Pt remains on Levophed 1mcq/min to keep SBP above 90. Pt on room air SpO2 95%. Pt having pain in lower back area, PRN Tylenol administered. Pt repositioned and turned with a pillow onto side. Pt
voiding using the urinal. IVF cont. IV abx INT. Pt requests to sleep and get washed up in AM. Pt refused oral hygiene despite education. Call daly within reach.
[2024-12-27] VITALS (17 sets, daily range): BP systolic 95–135; BP diastolic 53–77
[2024-12-27] MEDS: ZOSYN 50 IV ×2 (01:09→09:09)
--- NOTE | 2024-12-27 01:32 | PTCARENOTE ---
Patient incontinent of moderate BM. CHG bath and perineal care done. New linens and gown. Pt tolerating turning and repositioning. Call daly within reach.
[2024-12-27] MEDS: D5/0.9% SODIUM CHLORIDE 1000 IV ×2 (05:11→16:00)
[2024-12-27 06:03] LABS: Hematocrit 25.6 % (39.0-52.0); Hemoglobin 8.3 g/dL (13.0-18.0); Mean Corp Hgb Conc. 32.4 g/dL (33.0-37.0); Mean Corpuscular Hgb 28.5 pg (27.0-31.0); Mean Platelet Volume 11.2 fL (7.4-10.4); Platelet Count 208 10^3/uL (130-400); Red Blood Cell Count 2.91 10^6/uL (4.70-6.10); Red Cell Dist. Width 17.8 % (11.5-14.5); White Blood Cell Count 17.8 10^3/uL (4.8-10.8)
[2024-12-27 06:49] LABS: Blood Urea Nitrogen 4 mg/dl (9-20); Calcium 8.9 mg/dl (8.4-10.2); Carbon Dioxide 25 mmol/L (22-30); Chloride 109 mmol/L (98-107); Estimated Creatinine Clearance 82 ml/min; Glucose 111 mg/dl (70-99); Potassium 3.7 mmol/L (3.5-5.1); Sodium 136 mmol/L (135-145); eGFR > 60.00
--- NOTE | 2024-12-27 07:02 | W.PN.HOSP.TC ---
Addendum entered and electronically signed by Jocelin Abebe MD 12/27/24 14:41:
I saw and evaluated the patient independently. I reviewed the resident�s note and agree with findings and plan as documented by Dr. Jaffe.
GENERAL: chronically ill appearing cachectic male in no apparent distress
HEENT: NC/AT
HEART: regular rate and rhythm, +S1, +S2
LUNGS : clear to auscultation bilaterally
ABDOM: soft, nontender, nondistended, + bowel sounds
EXT: no cyanosis, clubbing, or edema
NEUROLOGIC: nonfocal
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
unasyn---started discussion about hospice with patient, , family--with END STAGE METASTATIC COLON CANCER, hospice is the most appropriate treatment/decision--wean pressors as able--apprec CRS/ID/heme input
Anemia, likely of chronic disease--no evidence of active bleeding--s/p 1 unit pRBC with improvement of HGB from 6.8 to 8.1--hold Eliquis
Metastatic colon Ca --end stage--apprec heme input--hospice appropriate
Hyponatremia--likely due to hypovolemia--cont IVF--trend sodium
DVT Proph- SCDs
Code status-- full code--need serious goals of care discussion with patient and family (if any involved)
Original Note:
Today's Communication/Plan
-
- goals of care discussions
Assessment / Plan
Assessment / Plan
Assessment:
69yo M pmh Stage IV colorectal CA w mets to liver, UC, anemia of chronic disease, recent admission 12/10-12/14 for hypercalcemia of malignancy admitted for pain and swelling in the L groin area. Hx b/l inguinal hernia repairs. Having daily BM's. CT
abdo/pelvis c/w abscess in L groin area, suspicious for perforation of the colon w resultant abscess.
Plan:
Groin abscess related to intraabdominal mass
- CT abdo/pelvis: mass in the left groin which most likely represents an abscess
- pain control
- bcx: no growth 48h
- wound cx: Viridans Streptococcus group
- IV zosyn
- ID input appreciated
- colorectal surgery input appreciated - I&D 12/25
- oncology input appreciated
- goals of care discussion initiated - will continue once arrives
Hypotension
- levophed gtt
- monitor
Anemia of chronic disease
- no evidence of acute blood loss
- 1 u pRBC transfused prior to surgery
- hold anticoagulation
Hypovolemic hyponatremia
- IV NS
Diet: Full liquids
DVT ppx: SCDs
Code status: FULL CODE
Anticipated Discharge: > 48 hours
Subjective/Interval History
-
Date of Service: December 27, 2024
Pt incontinent of moderate BM overnight. Pt reports feeling better today than yesterday. Pt and family have not come to a decision regarding comfort care/code status at this time. Family will be in later today.
Objective Data
-
Labs:
Laboratory Results
12/27/24
05:40
WBC 17.8 H
Hgb 8.3 L
Hct 25.6 L
Plt Count 208
Sodium 136
Potassium 3.7
Chloride 109 H
Carbon Dioxide 25
BUN 4 L
Creatinine 0.4 L
Glucose 111 H
Calcium 8.9
Vital Signs:
Vital Signs
Temp Pulse Resp BP Pulse Ox
97.9 F 74 17 98/58 97
12/27/24 03:00 12/27/24 06:00 12/27/24 06:00 12/27/24 06:00 12/27/24 06:00
I&O
12/26/24 12/27/24 12/28/24
06:59 06:59 06:59
Intake Total 3920.8 / 3920.8 2340 / 2340
Output Total 750 / 750 950 / 950
Balance 3170.8 / 3170.8 1390 / 1390
Review of Systems
-
History Source: Patient
Constitutional: Reports No Symptoms
Respiratory: Reports No Symptoms
Cardiac: Reports No Symptoms
Abdomen/GI: Reports No Symptoms
Neuro: Reports No Symptoms
Physical Exam
-
General: Appears Chronically Ill and Cachectic
HEENT: Normocephalic and Atraumatic
Respiratory: Clear to Auscultation and Non Labored Respirations
Cardiac: Regular Rhythm and S1/S2
GI: Soft, Nontender, Nondistended and Normal Bowel Sounds
Musculoskeletal: No Clubbing, No Cyanosis and No Edema
Skin: Warm and Dry
Neuro: Awake, Alert and Oriented
Psych: Calm
--- NOTE | 2024-12-27 09:47 | W.PN.ID1 ---
Date of Service
Date of Service: December 27, 2024
Today's Communication
- start unasyn, stop zosyn/micafungin, on dc can transition to a two week course of augmentin 12/24-6. Ongoing therapies are futile in my opinion.
Assessment / Plan
Septic shock - improved
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
End stage colon cancer
Severe cachexia
- remains on low dose pressors, no significant improvement in leukocytosis
- unless bowel perforation and mesh can both be successfully resected, this infection is not curable due to ongoing contamination of what should be a sterile site and presence of mesh. Even with attempts at medical treatment it will inevitably
result in progressive development of resistance isolates which will lead to his demise and is a risk to others around him acquiring MDROs. Even with this aggressive surgery, my opinion is that his prognosis is poor and I recommend hospice. Note
oncology concurs with this opinion.
- Note that most patients with advanced cancer ultimately due to infections.
- blood cultures are in progress x2
- wound culture notable for VGS
- start unasyn, stop zosyn/micafungin, on dc can transition to a two week course of augmentin /-65. Ongoing therapies are futile in my opinion.
Chief Complaint
-: Other (groin abscess, mesh infection, shock)
Subjective / Review of Systems
afebrile
remains on pressors
no new complaints
tearful
Vital Signs / Physical Exam
Vital Signs
Vital Signs
Temp Pulse Resp BP Pulse Ox
97.4 F 74 17 98/58 97
12/27/24 08:31 12/27/24 06:00 12/27/24 06:00 12/27/24 06:00 12/27/24 06:00
Physical Exam
Constitutional: Acutely Ill, Chronically Ill and Cachetic
Cardiovascular: Regular Rate and S1/S2; Negative Murmur or Rub
Pulmonary: Clear and Symmetric; Negative Wheezes or Rales
Gastrointestinal: Soft, Non Tender, Non Distended and Normal Bowel Sounds
Skin: Warm and Dry; Negative Rash or Jaundice
Objective Data
Lab Data
Lab Results
12/27/24 05:40
12/27/24 05:40
PT 16.4 Sec (11.4-14.6) H 12/25/24 04:32
INR 1.29 12/25/24 04:32
Estimated Creat Clear 82 ml/min 12/27/24 05:40
Lactic Acid 0.8 mmol/L (0.7-2.0) 12/25/24 15:09
Total Bilirubin 0.8 mg/dl (0.2-1.3) 12/26/24 03:52
AST 16 U/L (17-59) L 12/26/24 03:52
ALT 12 U/L (0-50) 12/26/24 03:52
Alkaline Phosphatase 540 U/L (38-126) H 12/26/24 03:52
Most recent labs reviewed.
Micro Results:
12/24/24 21:42 Blood Culture - Preliminary
Blood/Venous No Growth in 48 hours- Final report to follow
12/24/24 21:41 Blood Culture - Preliminary
Blood/Venous No Growth in 48 hours- Final report to follow
12/25/24 08:30 Anaerobic Culture - Preliminary
Groin - Left Culture pending. Anaerobic cultures are examined after 3
days incubation. Additional information to follow.
12/25/24 08:30 Wound Culture - Preliminary
Groin - Left Viridans Streptococcus Group
Gram Stain - Preliminary
--- NOTE | 2024-12-27 09:49 | W.PN.CRS1 ---
Today's Communication / Plan
-
wound care
continue iv abx
Assessment/Plan
-
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 Now presenting
with left groin abscess due to possible contained perforation of descending/sigmoid junction cancer with likely involved left inguinal mesh.
POD #2 I&D of left groin
WBC 17.8 (17.0), Hgb 8.3 (8.5)
Afebrile
--ABX as per ID
--Full liquid diet with ensure. Patient does not want to try anything more for now.
--Medical management as per primary team
--Dressing changed at bedside, site is draining well. Change daily and as needed.
--Trend labs/exams
--Appreciate hem onc. Discussed case with Dr. Hobson this morning.
--Hospice discussions with hospitalist service vs definitive surgical treatment, ongoing discussions, no decision yet
--Okay for DVT prophylaxis from our perpsective
Subjective Data
Procedure
12/25/2024 - incision and drainage of left groin abscess
Subjective Data
Date of Service: December 27, 2024
Patient states he is not hungry. He has flatus but no bowel movements. He has pain but it is controlled. Denies nausea or vomiting.
Objective Data
-
Vital Signs
Temp Pulse Resp BP Pulse Ox
97.4 F 74 17 98/58 97
12/27/24 08:31 12/27/24 06:00 12/27/24 06:00 12/27/24 06:00 12/27/24 06:00
Intake & Output
12/26/24 12/27/24 12/28/24
06:59 06:59 06:59
Intake Total 3920.8 / 3920.8 2340 / 2340
Output Total 750 / 750 950 / 950
Balance 3170.8 / 3170.8 1390 / 1390
Intake:
Oral fluids 180 / 180
IV fluids (Total) 3100 / 3100 2000 / 1999
norm saline 1000 / 1000
normosol 500 / 500
IV piggybacks 390.8 / 390.8 340 / 340
Blood products 250 / 250
Output:
Urine, Voided 750 / 750 950 / 950
Lab Results
12/27/24 05:40
12/27/24 05:40
Physical Exam
-
General: No Acute Distress and AOx3
Abdomen: Soft, Non Distended and Non Tender
Wound: Dressing Changed (no active bleeding, some mucus over top of wound, no erythema noted)
[2024-12-27] MEDS: UNASYN IV ×3 (11:23→21:04)
--- NOTE | 2024-12-27 11:47 | PTCARENOTE ---
Patient AAOx3, flat affect. Levo infusing at 1 mcg/min. SBPs in the low 90s. RA, 98%. NSR on monitor. Tolerating FLD, ate full breakfast. Patient making needs known. Will closely monitor.
--- NOTE | 2024-12-27 14:29 | CM ---
Left a voice mail for to call earlier today; she has not returned call
Met with patient at the bedside; initial assessment completed
Pharmacy verified: [facility] @ [address] [place] [address], [place], [place]
Patient and spouse live in one story home; 2 steps to enter; railing on steps; bath has tub w/shower
PLOF: patient reported that at baseline, he was independent with personal care, ambulated without a device; was able to drive
NO SNF or Home Health utilization history
does not drive
Plan: goals of care discussion was initiated with care team and will continue once arrives; CM will continue to monitor and support planning when determined
--- NOTE | 2024-12-27 15:25 | W.PN.UPDATE ---
Update Note
Progress Note Update
After a discussion with the pt and his family, pt wishes to update code status to DNR/DNI. All questions answered, pt demonstrates understanding of decision.
--- NOTE | 2024-12-27 23:06 | PTCARENOTE ---
Patient AAOx3, flat affect and withdrawn. DNR bracelet intact. NSR to sinus tach, HR up to 120's at times. Pt remains asymptomatic. BPs soft 103/68. RA, 96%. Pt incontinent of stool. Sacral foam changed. Pt using urinal independently. Able to make
needs known, call daly is within reach.
[2024-12-28] VITALS (24 sets, daily range): BP systolic 95–123; BP diastolic 55–80
[2024-12-28] MEDS: UNASYN IV ×2 (03:21→11:13)
[2024-12-28] MEDS: D5/0.9% SODIUM CHLORIDE 1000 IV ×2 (03:22→16:15)
[2024-12-28 05:37] LABS: Hemoglobin 8.2 g/dL (13.0-18.0); Mean Corp Hgb Conc. 32.8 g/dL (33.0-37.0); Mean Corpuscular Hgb 28.8 pg (27.0-31.0); Mean Corpuscular Volume 87.7 fL (80.0-94.0); Mean Platelet Volume 10.5 fL (7.4-10.4); Platelet Count 172 10^3/uL (130-400); Red Blood Cell Count 2.85 10^6/uL (4.70-6.10); Red Cell Dist. Width 17.6 % (11.5-14.5); White Blood Cell Count 15.7 10^3/uL (4.8-10.8)
[2024-12-28 05:59] LABS: Blood Urea Nitrogen < 2 mg/dl (9-20); Calcium 9.1 mg/dl (8.4-10.2); Carbon Dioxide 25 mmol/L (22-30); Chloride 110 mmol/L (98-107); Estimated Creatinine Clearance 82 ml/min; Glucose 96 mg/dl (70-99); Potassium 3.1 mmol/L (3.5-5.1); Sodium 136 mmol/L (135-145); eGFR > 60.00
--- NOTE | 2024-12-28 07:47 | W.PN.HOSP.TC ---
Addendum entered and electronically signed by Jocelin Abebe MD 12/28/24 15:14:
I saw and evaluated the patient independently. I reviewed the resident�s note and agree with findings and plan as documented by Dr. Jaffe.
GENERAL: chronically ill appearing cachectic male in no apparent distress
HEENT: NC/AT
HEART: regular rate and rhythm, +S1, +S2
LUNGS : clear to auscultation bilaterally
ABDOM: soft, nontender, nondistended, + bowel sounds
EXT: no cyanosis, clubbing, or edema
NEUROLOGIC: nonfocal
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
unasyn---started discussion about hospice with patient, , family--with END STAGE METASTATIC COLON CANCER, hospice is the most appropriate treatment/decision--wean pressors as able--apprec CRS/ID/heme input
Anemia, likely of chronic disease--no evidence of active bleeding--s/p 1 unit pRBC with improvement of HGB from 6.8 to 8.1--hold Eliquis
Metastatic colon Ca --end stage--apprec heme input--hospice appropriate
Hyponatremia--likely due to hypovolemia--cont IVF--trend sodium
wound--stage 2 sacral pressure injury (POA)
severe protein calorie malnutrition
DVT Proph- SCDs
Code status--pt has now made himself DNR
Original Note:
Today's Communication/Plan
-
- low residue diet
- family coming at 2:30/3
- continue hospice discussion
Assessment / Plan
Assessment / Plan
Assessment:
69yo M pmh Stage IV colorectal CA w mets to liver, UC, anemia of chronic disease, recent admission 12/10-12/14 for hypercalcemia of malignancy admitted for pain and swelling in the L groin area. Hx b/l inguinal hernia repairs. Having daily BM's. CT
abdo/pelvis c/w abscess in L groin area, suspicious for perforation of the colon w resultant abscess.
Plan:
Groin abscess related to intraabdominal mass
- CT abdo/pelvis: mass in the left groin which most likely represents an abscess
- pain control
- bcx: no growth 72h
- wound cx: Viridans Streptococcus group
- IV zosyn
- ID input appreciated
- colorectal surgery input appreciated - I&D 12/25
- oncology input appreciated
- goals of care discussion continued
Hypotension
- levophed gtt
- monitor
Anemia of chronic disease
- no evidence of acute blood loss
- 1 u pRBC transfused prior to surgery
- hold anticoagulation
Hypokalemia
- replete
Hypovolemic hyponatremia
- IV NS
Cachexia
Severe protein calorie malnutrition
Stage 2 sacral pressure ulcer
Diet: low residue
DVT ppx: SCDs
Code status: DNR
Anticipated Discharge: > 48 hours
Subjective/Interval History
-
Date of Service: December 28, 2024
No acute overnight events
Objective Data
-
Labs:
Laboratory Results
12/28/24
05:17
WBC 15.7 H
Hgb 8.2 L
Hct 25.0 L
Plt Count 172
Sodium 136
Potassium 3.1 L
Chloride 110 H
Carbon Dioxide 25
BUN < 2 L
Creatinine 0.3 L
Glucose 96
Calcium 9.1
Vital Signs:
Vital Signs
Temp Pulse Resp BP Pulse Ox
97.6 F 76 15 114/67 95
12/28/24 07:42 12/28/24 05:00 12/28/24 05:00 12/28/24 05:00 12/28/24 05:00
I&O
12/27/24 12/28/24 12/29/24
06:59 06:59 06:59
Intake Total 2340 / 2340 1240 / 1240
Output Total 950 / 950 1525 / 1525 250 / 250
Balance 1390 / 1390 -285 / -285 -250 / -250
Review of Systems
-
History Source: Patient
Constitutional: Reports No Symptoms
Respiratory: Reports No Symptoms
Cardiac: Reports No Symptoms
Abdomen/GI: Reports No Symptoms
Neuro: Reports No Symptoms
Physical Exam
-
General: Appears Chronically Ill and Cachectic
HEENT: Normocephalic and Atraumatic
Respiratory: Clear to Auscultation and Non Labored Respirations
Cardiac: Regular Rhythm and S1/S2
GI: Soft, Nontender, Nondistended and Normal Bowel Sounds
Musculoskeletal: No Clubbing, No Cyanosis and No Edema
Skin: Warm and Dry
Neuro: Awake, Alert and Oriented
Psych: Depressed
[2024-12-28 08:19] LABS: Magnesium 1.8 mg/dl (1.6-2.3)
[2024-12-28] MEDS: KCL 40 MEQ PO ×2 (08:25→11:13)
--- NOTE | 2024-12-28 08:57 | W.PN.ID1 ---
Date of Service
Date of Service: December 28, 2024
Today's Communication
- transition to a two week course of augmentin 12/24-01/06. Ongoing antibiotics beyond this course are futile and will inevitably fail; recommend hospice, reviewed with Michael and his Vianey on Ag phone on speaker phone. Im not certain that he
remembered the correct number to give us verbally earlier this admission.
- stable for dc from ID perspective, recommend home hospice
Assessment / Plan
Septic shock - improved
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
End stage colon cancer
Severe cachexia
- pressors off, cultures unchanged, small improvement in leukocytosis
- unless bowel perforation and mesh can both be successfully resected, this infection is not curable due to ongoing contamination of what should be a sterile site and presence of mesh. Even with attempts at medical treatment it will inevitably
result in progressive development of resistance isolates which will lead to his demise and is a risk to others around him acquiring MDROs. Even with this aggressive surgery, my opinion is that his prognosis is poor and I recommend hospice. Note
oncology concurs with this opinion.
- Note that most patients with advanced cancer ultimately due to infections.
- blood cultures are in progress x2
- wound culture notable for VGS
- transition to a two week course of augmentin 12/24-01/06. Ongoing antibiotics beyond this course are futile and will inevitably fail; recommend hospice, reviewed with Michael and his Vianey on [employer] phone on speaker pohne. Im not certain that he
remembered the correct number to give us verbally earlier this admission.
- stable for dc from ID perspective, recommend home hospice.
Chief Complaint
-: Other (groin abscess, mesh infection, shock)
Subjective / Review of Systems
remains afebrile
bp now stable off of pressors
groin dressing yesterday seropurulent - not feculent
Vital Signs / Physical Exam
Vital Signs
Vital Signs
Temp Pulse Resp BP Pulse Ox
97.6 F 76 15 114/67 95
12/28/24 07:42 12/28/24 05:00 12/28/24 05:00 12/28/24 05:00 12/28/24 05:00
Physical Exam
Constitutional: No Acute Distress, Chronically Ill and Cachetic
Cardiovascular: Regular Rate and S1/S2; Negative Murmur or Rub
Pulmonary: Clear and Symmetric; Negative Wheezes or Rales
Gastrointestinal: Soft, Non Tender, Non Distended and Normal Bowel Sounds
Skin: Warm and Dry; Negative Rash or Jaundice
Objective Data
Lab Data
Lab Results
12/28/24 05:17
12/28/24 05:17
PT 16.4 Sec (11.4-14.6) H 12/25/24 04:32
INR 1.29 12/25/24 04:32
Estimated Creat Clear 82 ml/min 12/28/24 05:17
Lactic Acid 0.8 mmol/L (0.7-2.0) 12/25/24 15:09
Total Bilirubin 0.8 mg/dl (0.2-1.3) 12/26/24 03:52
AST 16 U/L (17-59) L 12/26/24 03:52
ALT 12 U/L (0-50) 12/26/24 03:52
Alkaline Phosphatase 540 U/L (38-126) H 12/26/24 03:52
Most recent labs reviewed.
Micro Results:
12/24/24 21:41 Blood Culture - Preliminary
Blood/Venous No Growth in 72 hours- Final report to follow
12/24/24 21:42 Blood Culture - Preliminary
Blood/Venous No Growth in 72 hours- Final report to follow
12/25/24 08:30 Wound Culture - Preliminary
Groin - Left Viridans Streptococcus Group
Gram Stain - Preliminary
12/25/24 08:30 Anaerobic Culture - Preliminary
Groin - Left Culture pending. Anaerobic cultures are examined after 3
days incubation. Additional information to follow.
Care Review
Plan reviewed with: Physician (Dr Jaffe - hospice discussions)
--- NOTE | 2024-12-28 09:47 | W.PN.CRS1 ---
Today's Communication / Plan
-
no plans for surgery
wound care
continue abx
Assessment/Plan
-
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 Now presenting
with left groin abscess due to possible contained perforation of descending/sigmoid junction cancer with likely involved left inguinal mesh.
POD #3 I&D of left groin
WBC 15.7 (17.8), Hgb 8.2 (8.3)
Afebrile
--ABX as per ID
--Full liquid diet with ensure. Patient does not want to try anything more for now.
--Medical management as per primary team
--Dressing changed at bedside, site is draining well. Change daily and as needed.
--Trend labs/exams
--Appreciate hem onc. Discussed case with Dr. Hobson this morning.
--Hospice discussions with hospitalist service vs definitive surgical treatment, ongoing discussions, no decision yet
--Okay for DVT prophylaxis from our perspective
--no plans for surgery at this time, will follow peripherally
Subjective Data
Procedure
12/25/2024 - incision and drainage of left groin abscess
Subjective Data
Date of Service: December 28, 2024
Patient states he feels the same. He has no complaints.
Objective Data
-
Vital Signs
Temp Pulse Resp BP Pulse Ox
97.6 F 76 15 114/67 95
12/28/24 07:42 12/28/24 05:00 12/28/24 05:00 12/28/24 05:00 12/28/24 05:00
Intake & Output
12/27/24 12/28/24 12/29/24
06:59 06:59 06:59
Intake Total 2340 / 2340 1240 / 1240
Output Total 950 / 950 1525 / 1525 250 / 250
Balance 1390 / 1390 -285 / -285 -250 / -250
Intake:
IV fluids (Total) 1999 / 1999 1000 / 1000
IV piggybacks 340 / 340 240 / 240
Output:
Urine, Voided 950 / 950 1525 / 1525 250 / 250
Lab Results
12/28/24 05:17
12/28/24 05:17
Physical Exam
-
General: No Acute Distress and AOx3
Abdomen: Soft, Non Distended and Non Tender
Wound: Dressing Changed (wound with mucin covering it, no erythema)
--- NOTE | 2024-12-28 10:21 | PN.CDI ---
CDI
- -
CDI:
Physician Documentation Request
Admit Date: 12/24/24 20:59
Dear Doctor,
Please review the following and provide your response in the progress notes.
Clinical Indicators:
- RN skin assessments indicate Stage 2 sacrum pressure injury, POA
Physician documentation of the type and location of wounds is required for compliant documentation. Based on the above clinical findings and your assessment, please provide the following in your progress note:
1. Location of the ulcer/wound, including laterality.
2. Type (etiology) of ulcer/wound:
- Arterial (ischemic) ulcer
- Venous stasis ulcer
- Pressure (decubitus) ulcer
- Other
Use of terms such as suspected, likely, concern for, or probable (associated with a specific diagnosis that is being evaluated, monitored, or treated as if it exists) are acceptable and can be coded in the inpatient setting, when documented at the
time of discharge.
Thank you,
Aga Flores RN
CDI Specialist
Please use your independent medical judgment in providing your response.
*Source: National Pressure Ulcer Advisory Panel (NPUAP)
--- NOTE | 2024-12-28 10:21 | W.PN.ONC2 ---
Today's Communication / Plan
-
.
Impression
Impression
metastatic colorectal cancer, with liver mets and intact primary tumor; recent progression on Folfiri, progression on FOLFOX prior to that
left groin abscess
anemia of malignancy/chemotherapy
Plan
Plan
Pt tells me that his and sisters visited last evening and opted for DNR/DNI, however, he is considering transitioning to comfort focused care with hospice.
Michael understands that his infection and cancer are not amenable to treatment. He will not be made well with antibiotics, surgery and/or chemotherapy. His malnutrition and poor performance status further complicates his care
Subjective/Objective
Subjective
no new complaints
Vital Signs:
Vital Signs
Temp Pulse Resp BP Pulse Ox
97.6 F 76 15 114/67 95
12/28/24 07:42 12/28/24 05:00 12/28/24 05:00 12/28/24 05:00 12/28/24 05:00
Lab Results:
Laboratory Data
WBC 15.7 10^3/uL (4.8-10.8) H 12/28/24 05:17
Hgb 8.2 g/dL (13.0-18.0) L 12/28/24 05:17
Plt Count 172 10^3/uL (130-400) 12/28/24 05:17
PT 16.4 Sec (11.4-14.6) H 12/25/24 04:32
INR 1.29 12/25/24 04:32
eGFR > 60.00 12/28/24 05:17
Physical Exam
wound with mucin covering it, no erythema
HEENT: Moist Mucous Membranes; No Jaundice
Cardiology: Normal Sinus Rhythm
Pulmonary: Clear
GI: Soft
Extremities: Pulses Present; No Edema
Neuro: Non Focal
--- NOTE | 2024-12-28 10:33 | PN.CDI ---
CDI
- -
CDI:
Physician Documentation Request
Admit Date: 12/24/24 20:59
Dear Doctor,
Please review the following and provide your response in the progress notes.
Clinical Indicators:
- Patient admit with colon cancer with left groin abscess and septic shock
- Prior admission 12/13 Senior Managing Director note indicated Severe protein calorie malnutrition
- Unintentional weight loss >20% in 1 year
- Severe subcutaneous loss over rib cage
- Moderate subcutaneous loss over orbital
- Severe muscle loss over calf, clavicld, buccal
- Current BMI 14.7
- 12/28 Oncology 'not a candidate for treatment currently with infection and malnutrition'
Based on the above information and your assessment, which of the following most accurately represents the patient's nutritional status?
Severe protein calorie malnutrition
Other (please specify)
Welch Criteria ([facility] Hospitalist 2017)
2 or more criteria must be present for either
non severe or severe malnutrition
Note that the criteria differs related to the
presence of an acute or chronic illness
Acute Illness Chronic Illness
Energy Intake Non Severe: <75% for >7 days Non Severe: <75% for >1 month
Severe: <50% for >5 days Severe: <75% for >1 month
Weight Loss Non Severe: 1-2% over 1 week Non Severe: 5% over 1 month
5% over 1 month 7.5% over 3 months
7.5% over 3 months 10% over 6 months
1 year N/A 20% over 1 year
Severe: >2% over 1 week Severe: >5% over 1 month
>5% over 1 month >7.5% over 3 months
>7.5% over 3 months >10% over 6 months
1 year N/A >20% over 1 year
Body Fat Non Severe: Mild Decrease Non Severe: Mild Loss
Severe: Moderate Decrease Severe: Severe Loss
Muscle Mass Non Severe: Mild Decrease Non Severe: Mild Loss
Severe: Moderate Decrease Severe: Severe Loss
Fluid Accumulation Non Severe: Mild Accumulation Non Severe: Mild Accumulation
Severe: Moderate to severe Severe: Moderate to severe
accumulation accumulation
Reduced Government Minister Strength Non Severe: N/A Non Severe: N/A
Severe: Measurably reduced Severe: Measurably reduced
Additional criteria that can be used to Determine if Mild or Moderate Malnutrition (Merck Manual 2018)
Mild Moderate Severe
Albumin gm/dl <3.0 gm/dl <2.5 gm/dl <2.0 gm/dl
Pre Albumin mg/dl <15 gm/dl <10 mg/dl <5.0 mg/dl
BMI <18.5 <17 <16
Use of terms such as suspected, likely, concern for, or probable (associated with a specific diagnosis that is being evaluated, monitored, or treated as if it exists) are acceptable and can be coded in the inpatient setting, when documented at the
time of discharge.
Thank you,
Aga Flores RN
CDI Specialist
Please use your independent medical judgment in providing your response.
--- NOTE | 2024-12-28 11:19 | CM ---
Patient seen at bedside on IMU. no family present. Patient family asking about love and ability [facility] CM will continue to follow for dsicharge planning needs. Pending hospice meeting for educational discussion
later today. CM will continue to follow for discharge planning needs.
Plan; home with supports vs SNF
--- NOTE | 2024-12-28 12:40 | PTCARENOTE ---
Patient AAOx3 with no complaints. VSS. OFF levo. IV fluids infusing per order. Diet advanced to low residue, patient ordering now. Appetite improved. Continuing Q2T. K 3.1 this AM and repleted. Wound care provided, WOCN evaluating patient now.
Continuing to closely monitor patient.
--- NOTE | 2024-12-28 13:30 | WOUNDNOTE ---
[facility] RN note: Patient admitted with L groin abscess.
See H&P for complete history.
PMH: Past Medical History: Reports Cancer (Sigmoid adenocarcinoma with liver metastases) and Other (Anemia of chronic disease (malignancy), pulmonary embolism)
Past Surgical History: Reports Other (Hernia repair)
Wound Location and type/assessment: Patient admitted with: Sacral stage 2 PI, pink base, scant drainage. Back is intact, silicone foam used for protection. Heels are blanchable pink, no ulcers noted on either leg.
Appetite: Poor, encouraged protein in diet, patient states he will try.
Pressure redistribution devices in place: On Air mattress, turns self in bed. Pressure ulcer prevention measures reviewed with patient, states he understands.
Plan: Applied new silicone foam on back and adaptic with silicone sacral foam to Coccyx. L groin s/p I&D site being managed by surgery, dressings changed by them nurse confirmed. Will confirm orders with hospitalist.
Updated nurse Maurilio, will update care plan and will follow as needed.
Note to case management of equipment requested for discharge: None.
Recommend follow up at wound care center upon discharge.
--- NOTE | 2024-12-28 15:50 | HOSPNOTE ---
I spoke with patient and family and discussed hospice and the philosophy. The family feels the patient could not safely go home since the spouse has vision problems. They stated that a facility will be too expensive. They would like to discuss as a
family tonight and I will meet with patient again tomorrow. More information to follow.
--- NOTE | 2024-12-28 17:19 | CM ---
Patient sister called to request that CM assist patient with outside physician appointments. Sister and patient unaware of name of physician or what his phone number was. CM provided information re; [facility] where patient
had appointment last week. CM also provided phone number for [facility] and patient sister to call tomorrow. CM will continue to follow for discharge planning needs.
Plan;pending
[2024-12-28] MEDS: TYLENOL 650 MG PO (20:20)
[2024-12-28] MEDS: AUGMENTIN 875 MG/125 MG 1 TABLET PO (20:20)
--- NOTE | 2024-12-28 22:16 | PTCARENOTE ---
Patient AAOx3, withdrawn. VSS. NSR on the monitor with occasional PVCs. HR 86. 97% on room air. IVF cont. Pt incontinent of bowel 1 moderate BM tonight. Full CHG bath done. Pt having low back pain PRN Tylenol administered see MAR. Pt tolerating
frequent turning and repositioning. Call daly within reach.
[2024-12-29] VITALS (18 sets, daily range): BP systolic 97–119; BP diastolic 62–83
[2024-12-29] MEDS: D5/0.9% SODIUM CHLORIDE 1000 IV (02:25)
[2024-12-29 05:29] LABS: Mean Corpuscular Hgb 28.7 pg (27.0-31.0); Mean Corpuscular Volume 89.6 fL (80.0-94.0); Mean Platelet Volume 10.5 fL (7.4-10.4); Platelet Count 157 10^3/uL (130-400); Red Blood Cell Count 2.79 10^6/uL (4.70-6.10); Red Cell Dist. Width 18.1 % (11.5-14.5); White Blood Cell Count 15.3 10^3/uL (4.8-10.8)
[2024-12-29 05:59] LABS: Blood Urea Nitrogen 2 mg/dl (9-20); Calcium 9.6 mg/dl (8.4-10.2); Carbon Dioxide 25 mmol/L (22-30); Chloride 110 mmol/L (98-107); Estimated Creatinine Clearance 82 ml/min; Glucose 97 mg/dl (70-99); Potassium 4.1 mmol/L (3.5-5.1); Sodium 136 mmol/L (135-145); eGFR > 60.00
--- NOTE | 2024-12-29 07:55 | W.PN.HOSP.TC ---
Addendum entered and electronically signed by Jocelin Abebe MD 12/29/24 17:27:
I saw and evaluated the patient independently. I reviewed the resident�s note and agree with findings and plan as documented by Dr. Jaffe.
GENERAL: chronically ill appearing cachectic male in no apparent distress
HEENT: NC/AT
HEART: regular rate and rhythm, +S1, +S2
LUNGS : clear to auscultation bilaterally
ABDOM: soft, nontender, nondistended, + bowel sounds
EXT: no cyanosis, clubbing, or edema
NEUROLOGIC: nonfocal
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
unasyn and now to oral augmentin--- END STAGE METASTATIC COLON CANCER, hospice is the most appropriate treatment/decision--off pressors--apprec CRS/ID/heme input--patient will not qualify for inpatient hospice--hospice team has met with patient and
family, family does not feel that patient could go home due to 's vision issues and they cannot afford hospice at a facility--case management involved and asking Nova Camilo to meet with family to provide options
Anemia, likely of chronic disease--no evidence of active bleeding--s/p 1 unit pRBC with improvement of HGB from 6.8 to 8.1--hold Eliquis
Metastatic colon Ca --end stage--apprec heme input--hospice appropriate
Hyponatremia--likely due to hypovolemia--stop IVF
wound--stage 2 sacral pressure injury (POA)
severe protein calorie malnutrition
DVT Proph- SCDs
Code status--pt has now made himself DNR
Original Note:
Today's Communication/Plan
-
- cont goals of care discussion
- downgrade med/surg
Assessment / Plan
Assessment / Plan
Assessment:
69yo M pmh Stage IV colorectal CA w mets to liver, UC, anemia of chronic disease, recent admission 12/10-12/14 for hypercalcemia of malignancy admitted for pain and swelling in the L groin area. Hx b/l inguinal hernia repairs. Having daily BM's. CT
abdo/pelvis c/w abscess in L groin area, suspicious for perforation of the colon w resultant abscess.
Plan:
Groin abscess related to intraabdominal mass
- CT abdo/pelvis: mass in the left groin which most likely represents an abscess
- pain control
- bcx: no growth
- wound cx: Viridans Streptococcus group
- IV zosyn transitioned to 2 week course of augmentin - ends 01/11
- ID input appreciated
- colorectal surgery input appreciated - I&D 12/25
- oncology input appreciated
- goals of care discussion continued
Hypotension
- levophed gtt - weaned off
- monitor
Anemia of chronic disease
- no evidence of acute blood loss
- 1 u pRBC transfused prior to surgery
- hold anticoagulation
Hypokalemia
- replete
Hypovolemic hyponatremia
- IV NS
Cachexia
Severe protein calorie malnutrition
Stage 2 sacral pressure ulcer
Diet: low residue
DVT ppx: SCDs
Code status: DNR
Anticipated Discharge: > 48 hours
Subjective/Interval History
-
Date of Service: December 29, 2024
Incontinent of 1 BM overnight. Back pain last night, treated w tylenol.
Objective Data
-
Labs:
Laboratory Results
12/29/24
05:14
WBC 15.3 H
Hgb 8.0 L
Hct 25.0 L
Plt Count 157
Sodium 136
Potassium 4.1 D
Chloride 110 H
Carbon Dioxide 25
BUN 2 L
Creatinine 0.4 L
Glucose 97
Calcium 9.6
Vital Signs:
Vital Signs
Temp Pulse Resp BP Pulse Ox
97.6 F 84 16 98/70 98
12/29/24 03:13 12/29/24 06:00 12/29/24 06:00 12/29/24 06:00 12/29/24 06:00
I&O
12/28/24 12/29/24 12/30/24
06:59 06:59 06:59
Intake Total 1240 / 1240 1000 / 1000
Output Total 1525 / 1525 1950 / 1950
Balance -285 / -285 -950 / -950
Review of Systems
-
History Source: Patient
Constitutional: Reports No Symptoms
Respiratory: Reports No Symptoms
Cardiac: Reports No Symptoms
Abdomen/GI: Reports No Symptoms
Musculoskeletal: Reports Muscle Pain
Skin: Reports No Symptoms
Neuro: Reports No Symptoms
Physical Exam
-
General: Appears Chronically Ill and Cachectic
HEENT: Normocephalic and Atraumatic
Respiratory: Clear to Auscultation and Non Labored Respirations
Cardiac: Regular Rhythm and S1/S2
GI: Soft, Nontender, Nondistended and Normal Bowel Sounds
Musculoskeletal: No Clubbing, No Cyanosis and No Edema
Skin: Warm and Dry
Neuro: Awake, Alert and Oriented
Psych: Depressed
--- NOTE | 2024-12-29 09:00 | W.PN.ID1 ---
Date of Service
Date of Service: December 29, 2024
Today's Communication
- transition to a two week course of augmentin 12/24-01/06. Ongoing antibiotics beyond this course are futile and will inevitably fail; recommend hospice, reviewed with Michael and his Vianey on 12/29.
- stable for dc from ID perspective, recommend home hospice.
ID service will no longer actively follow this patient please recall for further questions.
Assessment / Plan
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
End stage colon cancer
Severe cachexia
- unless bowel perforation and mesh can both be successfully resected, this infection is not curable due to ongoing contamination of what should be a sterile site and presence of mesh. Even with attempts at medical treatment it will inevitably
result in progressive development of resistance isolates which will lead to his demise and is a risk to others around him acquiring MDROs. Even with this aggressive surgery, my opinion is that his prognosis is poor and I recommend hospice.
- Note that most patients with advanced cancer ultimately due to infections.
- blood cultures are in progress x2
- wound culture notable for VGS
- transition to a two week course of augmentin 12/24-01/06. Ongoing antibiotics beyond this course are futile and will inevitably fail; recommend hospice, reviewed with Michael and his Vianey on 12/29.
- stable for dc from ID perspective, recommend home hospice.
ID service will no longer actively follow this patient please recall for further questions.
Chief Complaint
-: Other (groin abscess, mesh infection, shock)
Subjective / Review of Systems
afebrile
bp overall stable off of pressors
no events overnight
Vital Signs / Physical Exam
Vital Signs
Vital Signs
Temp Pulse Resp BP Pulse Ox
98.1 F 84 16 98/70 98
12/29/24 07:15 12/29/24 06:00 12/29/24 06:00 12/29/24 06:00 12/29/24 06:00
Physical Exam
Constitutional: No Acute Distress and Cachetic
Cardiovascular: Regular Rate and S1/S2; Negative Murmur or Rub
Pulmonary: Clear and Symmetric; Negative Wheezes or Rales
Gastrointestinal: Soft, Non Tender, Non Distended and Normal Bowel Sounds
Skin: Warm and Dry; Negative Rash or Jaundice
Objective Data
Lab Data
Lab Results
12/29/24 05:14
12/29/24 05:14
PT 16.4 Sec (11.4-14.6) H 12/25/24 04:32
INR 1.29 12/25/24 04:32
Estimated Creat Clear 82 ml/min 12/29/24 05:14
Lactic Acid 0.8 mmol/L (0.7-2.0) 12/25/24 15:09
Total Bilirubin 0.8 mg/dl (0.2-1.3) 12/26/24 03:52
AST 16 U/L (17-59) L 12/26/24 03:52
ALT 12 U/L (0-50) 12/26/24 03:52
Alkaline Phosphatase 540 U/L (38-126) H 12/26/24 03:52
Most recent labs reviewed.
Micro Results:
12/24/24 21:41 Blood Culture - Preliminary
Blood/Venous No Growth in 4 days- Final report to follow
12/24/24 21:42 Blood Culture - Preliminary
Blood/Venous No Growth in 4 days- Final report to follow
12/25/24 08:30 Anaerobic Culture - Preliminary
Groin - Left Culture pending. Anaerobic cultures are examined after 3
days incubation. Additional information to follow.
12/25/24 08:30 Wound Culture - Preliminary
Groin - Left Viridans Streptococcus Group
Gram Stain - Preliminary
[2024-12-29] MEDS: AUGMENTIN 875 MG/125 MG 1 TABLET PO ×2 (09:01→19:49)
[2024-12-29] MEDS: D5/0.9% SODIUM CHLORIDE IV (16:13)
--- NOTE | 2024-12-29 16:19 | PTCARENOTE ---
43- Pt's assessment as documented. Aox3, flat and withdrawn. Emotional support provided. NSR on tele monitor. Resting comfortably at this time. Able to make needs known. Call daly within reach.
--- NOTE | 2024-12-29 16:24 | DOWNTIME ---
There was a [employer] Coordinator Downtime on 12/29/2024 from 1230 to 12/29/2024 at 1550. Downtime documentation of patient's care, including medication administrations, has been reconciled in the electronic record per guidelines. Refer to the
patient's paper chart under the miscellaneous tab to see printed paper medication records and downtime forms.
--- NOTE | 2024-12-29 16:33 | CM ---
Patient seen at bedside with physicians. Patient indicated that he would like to talk to Mary Camilo from a place from mom about information for supports for and patient. CM will continue to follow for discharge planning needs.
Plan; pending
--- NOTE | 2024-12-29 17:25 | PTCARENOTE ---
Pt downgraded to med surg. Report called to receiving RN. Belongings collected from room. Transferred to 2131 via stretcher.
[2024-12-29] MEDS: ELIQUIS 2.5 MG PO (19:49)
--- NOTE | 2024-12-29 20:00 | PTCARENOTE ---
Resumed care of pt laying in bed sleeping. Pt easily arousable to voice, AAOx3, drowsy, lethargic, flat withdrawn affect. Dinner at bedside, untouched. Pt refused dinner at this time. Pt able to use urinal independently. Pt inc of loose stool, fabrizio
care provided, CHERYL noted, barrier ointment applied. Pt denies any complaints of pain at this time. Pt repositioned per comfort. Call daly in reach. Will continue to monitor.
[2024-12-29] MEDS: TYLENOL 650 MG PO (23:13)
--- NOTE | 2024-12-30 03:41 | PTCARENOTE ---
Pt with multiple episodes inc with loose brown stool. Frequent fabrizio care provided. barrier ointment applied. Complete bed bath provided. Will continue to monitor.
[2024-12-30 05:10] LABS: Hematocrit 24.7 % (39.0-52.0); Hemoglobin 7.9 g/dL (13.0-18.0); Mean Corpuscular Hgb 28.9 pg (27.0-31.0); Mean Corpuscular Volume 90.5 fL (80.0-94.0); Mean Platelet Volume 10.6 fL (7.4-10.4); Platelet Count 141 10^3/uL (130-400); Red Blood Cell Count 2.73 10^6/uL (4.70-6.10); Red Cell Dist. Width 18.4 % (11.5-14.5); White Blood Cell Count 14.4 10^3/uL (4.8-10.8)
[2024-12-30 05:47] LABS: Blood Urea Nitrogen 4 mg/dl (9-20); Calcium 9.9 mg/dl (8.4-10.2); Carbon Dioxide 25 mmol/L (22-30); Chloride 107 mmol/L (98-107); Estimated Creatinine Clearance 82 ml/min; Glucose 72 mg/dl (70-99); Potassium 4.4 mmol/L (3.5-5.1); Sodium 133 mmol/L (135-145); eGFR > 60.00
[2024-12-30 07:10] VITALS: BP 99/64
--- NOTE | 2024-12-30 07:54 | W.PN.HOSP.TC ---
Today's Communication/Plan
-
- cont goals of care discussion
Assessment / Plan
Assessment / Plan
Assessment:
69yo M pmh Stage IV colorectal CA w mets to liver, UC, anemia of chronic disease, recent admission 12/10-12/14 for hypercalcemia of malignancy admitted for pain and swelling in the L groin area. Hx b/l inguinal hernia repairs. Having daily BM's. CT
abdo/pelvis c/w abscess in L groin area, suspicious for perforation of the colon w resultant abscess.
Plan:
Groin abscess related to intraabdominal mass
- CT abdo/pelvis: mass in the left groin which most likely represents an abscess
- pain control
- bcx: no growth
- wound cx: Viridans Streptococcus group
- IV zosyn transitioned to 2 week course of augmentin - ends 01/06
- ID input appreciated
- colorectal surgery input appreciated - I&D 12/25
- oncology input appreciated
- goals of care discussion continued
Hypotension
- levophed gtt - weaned off
- monitor
Anemia of chronic disease
- no evidence of acute blood loss
- 1 u pRBC transfused prior to surgery
- hold anticoagulation
Hypokalemia
- replete
Hypovolemic hyponatremia
- IV NS
Cachexia
Severe protein calorie malnutrition
Stage 2 sacral pressure ulcer
Diet: low residue
DVT ppx: SCDs
Code status: DNR
Anticipated Discharge: > 48 hours
Subjective/Interval History
-
Date of Service: December 30, 2024
Loose brown stools overnight. Family arriving today from out of state
Objective Data
-
Labs:
Laboratory Results
12/30/24
05:02
WBC 14.4 H
Hgb 7.9 L
Hct 24.7 L
Plt Count 141
Sodium 133 L
Potassium 4.4
Chloride 107
Carbon Dioxide 25
BUN 4 L
Creatinine 0.5 L
Glucose 72
Calcium 9.9
Vital Signs:
Vital Signs
Temp Pulse Resp BP Pulse Ox
100.2 F 110 16 102/64 95
12/29/24 23:30 12/29/24 23:30 12/29/24 23:30 12/29/24 23:30 12/29/24 23:30
I&O
12/29/24 12/30/24 12/31/24
06:59 06:59 06:59
Intake Total 1000 / 1000 240 / 240
Output Total 1950 / 1950 3700 / 3700
Balance -950 / -950 -3460 / -3460
Review of Systems
-
History Source: Patient
Constitutional: Reports No Symptoms
Respiratory: Reports No Symptoms
Cardiac: Reports No Symptoms
Abdomen/GI: Reports No Symptoms
Musculoskeletal: Reports No Symptoms
Neuro: Reports No Symptoms
Physical Exam
-
General: Appears Chronically Ill and Cachectic
HEENT: Normocephalic and Atraumatic
Respiratory: Clear to Auscultation and Non Labored Respirations
Cardiac: Regular Rhythm and S1/S2
GI: Soft, Nontender, Nondistended and Normal Bowel Sounds
Musculoskeletal: No Clubbing, No Cyanosis and No Edema
Skin: Warm and Dry
Neuro: Awake, Alert and Oriented
Psych: Depressed
[2024-12-30] MEDS: ELIQUIS 2.5 MG PO ×2 (09:33→20:06)
[2024-12-30] MEDS: AUGMENTIN 875 MG/125 MG 1 TABLET PO ×2 (09:34→20:06)
--- NOTE | 2024-12-30 09:45 | WOUNDNOTE ---
WOC RN note: Patient's sacral stage 2 ulcer about the same as compared to last week's photo. Patient is on an Advanta with Accumax mattress. Static air overlay applied. Sacral shaped silicone border foam dressing changed. Skin on heels intact.
Protective foam dressing changed on heels. Heels off bed with pillow. Patient verbalized comfort with air overlay mattress. Updated RN Nani. Patient for possible Hospice for end stage metastatic colon cancer. Will sign off. Call if needed.
--- NOTE | 2024-12-30 09:48 | HOSPNOTE ---
Left a message for spouse to please call me back so we could get a plan in place for hospice services. More information to follow.
[2024-12-30 15:10] VITALS: BP 108/61
--- NOTE | 2024-12-30 15:31 | PTCARENOTE ---
Patient tolerating small amount of low residue diet. Patient tolerating PO liquids. Voiding without difficulty in urinal. Left groin dressing with moderate amount of drainage, dressing changed. Patient has no c/o pain at present and is resting
comfortably. Call daly in reach.
[2024-12-30 23:19] VITALS: BP 103/62
[2024-12-31 05:54] LABS: Hematocrit 23.6 % (39.0-52.0); Hemoglobin 7.6 g/dL (13.0-18.0); Mean Corp Hgb Conc. 32.2 g/dL (33.0-37.0); Mean Corpuscular Hgb 28.3 pg (27.0-31.0); Mean Corpuscular Volume 87.7 fL (80.0-94.0); Mean Platelet Volume 10.7 fL (7.4-10.4); Platelet Count 173 10^3/uL (130-400); Red Blood Cell Count 2.69 10^6/uL (4.70-6.10); Red Cell Dist. Width 17.8 % (11.5-14.5); White Blood Cell Count 16.9 10^3/uL (4.8-10.8)
[2024-12-31 06:14] LABS: Blood Urea Nitrogen 5 mg/dl (9-20); Calcium 10.1 mg/dl (8.4-10.2); Carbon Dioxide 27 mmol/L (22-30); Chloride 105 mmol/L (98-107); Estimated Creatinine Clearance 82 ml/min; Glucose 73 mg/dl (70-99); Potassium 4.2 mmol/L (3.5-5.1); Sodium 131 mmol/L (135-145); eGFR > 60.00
[2024-12-31 07:00] VITALS: BP 99/63
--- NOTE | 2024-12-31 08:05 | W.PN.HOSP.TC ---
Documented by User: Bina Jaffe DO, Resident 01/04/25 15:26
Today's Communication/Plan
-
- goals of care disc
Assessment / Plan
Assessment / Plan
Assessment:
69yo M pmh Stage IV colorectal CA w mets to liver, UC, anemia of chronic disease, recent admission 12/10-12/14 for hypercalcemia of malignancy admitted for pain and swelling in the L groin area. Hx b/l inguinal hernia repairs. Having daily BM's. CT
abdo/pelvis c/w abscess in L groin area, suspicious for perforation of the colon w resultant abscess.
Plan:
Groin abscess related to intraabdominal mass
- CT abdo/pelvis: mass in the left groin which most likely represents an abscess
- pain control
- bcx: no growth
- wound cx: Viridans Streptococcus group
- IV zosyn transitioned to 2 week course of augmentin - ends 01/06
- ID input appreciated
- colorectal surgery input appreciated - I&D 12/25
- oncology input appreciated
- goals of care discussion continued
Hypotension
- levophed gtt - weaned off
- monitor
Anemia of chronic disease
- no evidence of acute blood loss
- 1 u pRBC transfused prior to surgery
- hold anticoagulation
Hypokalemia
- replete
Hypovolemic hyponatremia
- IV NS
Cachexia
Severe protein calorie malnutrition
Stage 2 sacral pressure ulcer
Diet: low residue
DVT ppx: SCDs, eliquis
Code status: DNR
Anticipated Discharge: > 48 hours
Subjective/Interval History
-
Date of Service: December 31, 2024
No acute overnight events. Family should be in later today.
Objective Data
-
Labs:
Laboratory Results
12/31/24
05:33
WBC 16.9 H
Hgb 7.6 L
Hct 23.6 L
Plt Count 173 D
Sodium 131 L
Potassium 4.2
Chloride 105
Carbon Dioxide 27
BUN 5 L
Creatinine 0.4 L
Glucose 73
Calcium 10.1
Vital Signs:
Vital Signs
Temp Pulse Resp BP Pulse Ox
98.1 F 101 20 99/63 96
12/31/24 07:00 12/31/24 07:00 12/31/24 07:00 12/31/24 07:00 12/31/24 07:00
I&O
12/30/24 12/31/24 01/01/25
06:59 06:59 06:59
Intake Total 240 / 240 840 / 840
Output Total 3700 / 3700 2800 / 2800
Balance -3460 / -3460 -1960 / -1959
Review of Systems
-
History Source: Patient
Constitutional: Reports No Symptoms
Respiratory: Reports No Symptoms
Cardiac: Reports No Symptoms
Abdomen/GI: Reports No Symptoms
Musculoskeletal: Reports No Symptoms
Neuro: Reports No Symptoms
Physical Exam
-
General: Appears Chronically Ill and Cachectic
HEENT: Normocephalic and Atraumatic
Respiratory: Clear to Auscultation and Non Labored Respirations
Cardiac: Regular Rhythm and S1/S2
GI: Soft, Nontender, Nondistended and Normal Bowel Sounds
Skin: Warm and Dry
Neuro: Awake and Alert
Psych: Depressed

Documented by User: Jacob Aguayo MD 01/02/25 14:05
Assessment / Plan
Assessment / Plan
Assessment:
69yo M pmh Stage IV colorectal CA w mets to liver, UC, anemia of chronic disease, recent admission 12/10-12/14 for hypercalcemia of malignancy admitted for pain and swelling in the L groin area. Hx b/l inguinal hernia repairs. Having daily BM's. CT
abdo/pelvis c/w abscess in L groin area, suspicious for perforation of the colon w resultant abscess.
Plan:
Groin abscess related to intraabdominal mass
- CT abdo/pelvis: mass in the left groin which most likely represents an abscess
- pain control
- bcx: no growth
- wound cx: Viridans Streptococcus group
- IV zosyn transitioned to 2 week course of augmentin - ends 01/06
- ID input appreciated
- colorectal surgery input appreciated - I&D 12/25
- oncology input appreciated
- goals of care discussion continued
Hypotension
- levophed gtt - weaned off
- monitor
Anemia of chronic disease
- no evidence of acute blood loss
- 1 u pRBC transfused prior to surgery
- hold anticoagulation
Hypokalemia
- replete
Hypovolemic hyponatremia
- IV NS
Cachexia
Severe protein calorie malnutrition
Stage 2 sacral pressure ulcer
Diet: low residue
DVT ppx: SCDs, eliquis
Code status: DNR

I saw and evaluated the patient. I reviewed the resident�s note and agree with findings and plan as documented in the resident�s note.
Ongoing discussion for goal of care for patient to be discharged to hospice level care. Unfortunately limited family support and patient will require to be placed in a facility. Patient's spouse is also have limitation/visual disability and cannot
take care of the patient
[2024-12-31] MEDS: ELIQUIS 2.5 MG PO ×2 (08:59→19:57)
[2024-12-31] MEDS: AUGMENTIN 875 MG/125 MG 1 TABLET PO ×2 (08:59→19:57)
--- NOTE | 2024-12-31 14:53 | HOSPNOTE ---
Spoke with spouse Vianey over the phone and there is still no decisions about home with hospice or SNF with hospice. Attending made aware.
--- NOTE | 2024-12-31 15:56 | CM ---
CM met with patient sister and patient. Patient sister from [place] was here and left to go back home due to upset stomach. CM reviewed options with patient and sister and called to [facility] and they are in process of researching options for patient
and his in personal care. Per sister they would like to go to personal care and then patient could determine if he would want hospice. Awaiting decision by family of options and which personal care option is available. CM will update physician.
Plan; Personal care/with [facility] vs hospice
[2024-12-31 17:20] VITALS: BP 98/65
[2024-12-31] MEDS: DILAUDID 0.5 MG IV (18:32)
[2024-12-31 23:01] VITALS: BP 97/59
[2025-01-01 05:24] LABS: Hematocrit 24.3 % (39.0-52.0); Hemoglobin 7.9 g/dL (13.0-18.0); Mean Corp Hgb Conc. 32.5 g/dL (33.0-37.0); Mean Corpuscular Hgb 28.3 pg (27.0-31.0); Mean Corpuscular Volume 87.1 fL (80.0-94.0); Mean Platelet Volume 11.4 fL (7.4-10.4); Platelet Count 204 10^3/uL (130-400); Red Blood Cell Count 2.79 10^6/uL (4.70-6.10); Red Cell Dist. Width 17.7 % (11.5-14.5); White Blood Cell Count 20.1 10^3/uL (4.8-10.8)
[2025-01-01 05:54] LABS: Blood Urea Nitrogen 5 mg/dl (9-20); Calcium 10.5 mg/dl (8.4-10.2); Carbon Dioxide 27 mmol/L (22-30); Chloride 103 mmol/L (98-107); Estimated Creatinine Clearance 82 ml/min; Glucose 83 mg/dl (70-99); Potassium 4.4 mmol/L (3.5-5.1); Sodium 131 mmol/L (135-145); eGFR > 60.00
[2025-01-01 07:20] VITALS: BP 104/67
[2025-01-01] MEDS: AUGMENTIN 875 MG/125 MG 1 TABLET PO ×2 (08:53→19:18)
[2025-01-01] MEDS: ELIQUIS 2.5 MG PO ×2 (08:53→19:18)
--- NOTE | 2025-01-01 11:25 | W.PN.HOSP.TC ---
Today's Communication/Plan
-
d/c planning for hospice
Assessment / Plan
Assessment / Plan
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
unasyn and now to oral augmentin--- END STAGE METASTATIC COLON CANCER, hospice is the most appropriate treatment/decision--off pressors--apprec CRS/ID/heme input--patient will not qualify for inpatient hospice--hospice team has met with patient and
family, family does not feel that patient could go home due to 's vision issues and they cannot afford hospice at a facility--case management involved staff from [facility] to see if can provide any assistance
Anemia, likely of chronic disease--no evidence of active bleeding--s/p 1 unit pRBC with improvement of HGB to 8.1, today 7.9, continue monitor.
Metastatic colon Ca --end stage--apprec heme input--hospice appropriate
Hyponatremia--likely due to hypovolemia--stop IVF
wound--stage 2 sacral pressure injury (POA)
severe protein calorie malnutrition
DVT Proph- SCDs
Code status--pt has now made himself DNR
Continue supportive care and antibiotics.
Prognosis remains poor and patient remains appropriate for hospice care. Case management working to find appropriate place for hospice care,
Anticipated Discharge: 24 - 48 hours
Subjective/Interval History
-
Date of Service: January 01, 2025
Resting comfortably in bed
Not voicing any complaints
Objective Data
-
Labs:
Laboratory Results
01/01/25
05:01
WBC 20.1 H
Hgb 7.9 L
Hct 24.3 L
Plt Count 204
Sodium 131 L
Potassium 4.4
Chloride 103
Carbon Dioxide 27
BUN 5 L
Creatinine 0.4 L
Glucose 83
Calcium 10.5 H
Vital Signs:
Vital Signs
Temp Pulse Resp BP Pulse Ox
98.2 F 101 16 104/67 96
01/01/25 07:20 01/01/25 07:20 01/01/25 07:20 01/01/25 07:20 01/01/25 07:20
I&O
12/31/24 01/01/25 01/02/25
06:59 06:59 06:59
Intake Total 840 / 840 780 / 780
Output Total 2800 / 2800 1175 / 1175
Balance -1960 / -1960 -395 / -395
Review of Systems
-
Respiratory: Reports No Symptoms
Cardiac: Reports No Symptoms
Abdomen/GI: Reports No Symptoms
Physical Exam
-
General: Cachectic; Negative Appears in Distress or Pain
HEENT: Negative Oxygen
GI: Soft, Nontender and Flat
Genito-urinary: Other (Left groin open wound)
Neuro: Awake, Alert, Oriented and No Motor Deficits
[2025-01-01 15:20] VITALS: BP 100/61
[2025-01-01] MEDS: TYLENOL 650 MG PO (21:44)
[2025-01-01 23:20] VITALS: BP 92/57
[2025-01-02 06:21] LABS: Hemoglobin 7.3 g/dL (13.0-18.0); Mean Corp Hgb Conc. 31.7 g/dL (33.0-37.0); Mean Corpuscular Hgb 28.5 pg (27.0-31.0); Mean Corpuscular Volume 89.8 fL (80.0-94.0); Platelet Count 210 10^3/uL (130-400); Red Blood Cell Count 2.56 10^6/uL (4.70-6.10); White Blood Cell Count 19.6 10^3/uL (4.8-10.8)
[2025-01-02 06:35] LABS: Blood Urea Nitrogen 10 mg/dl (9-20); Calcium 10.4 mg/dl (8.4-10.2); Carbon Dioxide 28 mmol/L (22-30); Chloride 104 mmol/L (98-107); Estimated Creatinine Clearance 82 ml/min; Glucose 82 mg/dl (70-99); Potassium 4.1 mmol/L (3.5-5.1); Sodium 132 mmol/L (135-145); eGFR > 60.00
[2025-01-02 07:25] VITALS: BP 108/63
[2025-01-02] MEDS: AUGMENTIN 875 MG/125 MG 1 TABLET PO ×2 (08:52→21:05)
[2025-01-02] MEDS: ELIQUIS 2.5 MG PO ×2 (08:52→21:05)
--- NOTE | 2025-01-02 14:05 | W.PN.HOSP.TC ---
Today's Communication/Plan
-
discharge planning
Assessment / Plan
Assessment / Plan
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
unasyn and now to oral augmentin--- END STAGE METASTATIC COLON CANCER, hospice is the most appropriate treatment/decision--off pressors--apprec CRS/ID/heme input--patient will not qualify for inpatient hospice--hospice team has met with patient and
family, family does not feel that patient could go home due to 's vision issues and they cannot afford hospice at a facility--case management involved staff from [facility] to see if can provide any assistance
Anemia, likely of chronic disease--no evidence of active bleeding--s/p 1 unit pRBC with improvement of HGB to 8.1. Hemoglobin is drifted down to 7.3. Patient is asymptomatic, his patient being transitioned to hospice will avoid any unnecessary
transfusion at this stage.
Metastatic colon Ca --end stage--apprec heme input--hospice appropriate
Hyponatremia--likely due to hypovolemia--stop IVF
wound--stage 2 sacral pressure injury (POA)
severe protein calorie malnutrition
DVT Proph- SCDs
Code status--pt has now made himself DNR
Continue supportive care and antibiotics.
Prognosis remains poor and patient remains appropriate for hospice care. Case management working to find appropriate place for hospice care,
Anticipated Discharge: Today
Subjective/Interval History
-
Date of Service: January 02, 2025
No new problems overnight
Objective Data
-
Labs:
Laboratory Results
01/02/25
05:17
WBC 19.6 H
Hgb 7.3 L
Hct 23.0 L
Plt Count 210
Sodium 132 L
Potassium 4.1
Chloride 104
Carbon Dioxide 28
BUN 10
Creatinine 0.4 L
Glucose 82
Calcium 10.4 H
Vital Signs:
Vital Signs
Temp Pulse Resp BP Pulse Ox
98.1 F 93 16 108/63 98
01/02/25 07:25 01/02/25 07:25 01/02/25 07:25 01/02/25 07:25 01/02/25 08:15
I&O
01/01/25 01/02/25 01/03/25
06:59 06:59 06:59
Intake Total 780 / 780 1200 / 1200
Output Total 1175 / 1175 1465 / 1465
Balance -395 / -395 -265 / -265
Review of Systems
-
Respiratory: Reports No Symptoms
Cardiac: Reports No Symptoms
Abdomen/GI: Reports No Symptoms
Physical Exam
-
General: Cachectic; Negative Appears in Distress or Pain
HEENT: Negative Oxygen
GI: Soft, Nontender and Flat
Genito-urinary: Other (Left groin open wound)
Neuro: Awake, Alert, Oriented and No Motor Deficits
[2025-01-02 15:10] VITALS: BP 102/60
[2025-01-02 23:24] VITALS: BP 107/63
[2025-01-03] MEDS: DILAUDID 0.5 MG IV ×2 (01:00→21:41)
[2025-01-03 06:30] LABS: Hematocrit 24.1 % (39.0-52.0); Hemoglobin 7.6 g/dL (13.0-18.0); Mean Corp Hgb Conc. 31.5 g/dL (33.0-37.0); Mean Corpuscular Hgb 28.6 pg (27.0-31.0); Mean Corpuscular Volume 90.6 fL (80.0-94.0); Mean Platelet Volume 11.3 fL (7.4-10.4); Platelet Count 255 10^3/uL (130-400); Red Blood Cell Count 2.66 10^6/uL (4.70-6.10); Red Cell Dist. Width 18.2 % (11.5-14.5); White Blood Cell Count 22.1 10^3/uL (4.8-10.8)
[2025-01-03 06:54] LABS: Blood Urea Nitrogen 10 mg/dl (9-20); Calcium 10.4 mg/dl (8.4-10.2); Carbon Dioxide 27 mmol/L (22-30); Chloride 104 mmol/L (98-107); Estimated Creatinine Clearance 82 ml/min; Glucose 84 mg/dl (70-99); Potassium 4.2 mmol/L (3.5-5.1); Sodium 130 mmol/L (135-145); eGFR > 60.00
[2025-01-03 07:27] VITALS: BP 100/66
[2025-01-03] MEDS: ELIQUIS 2.5 MG PO ×2 (08:58→19:44)
[2025-01-03] MEDS: AUGMENTIN 875 MG/125 MG 1 TABLET PO ×2 (08:58→19:44)
[2025-01-03 15:52] VITALS: BP 103/60
--- NOTE | 2025-01-03 16:00 | W.PN.HOSP.TC ---
Today's Communication/Plan
-
await safe dispo to appropriate setting for hospice.
Assessment / Plan
Assessment / Plan
Assessment:
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
unasyn and now to oral Augmentin through 01/06--- END STAGE METASTATIC COLON CANCER, hospice is the most appropriate treatment/decision--off pressors--apprec CRS/ID/heme input--patient will not qualify for inpatient hospice--hospice team has met with
patient and family, family does not feel that patient could go home due to 's vision issues and they cannot afford hospice at a facility--case management involved staff from [facility] to see if can provide any assistance
Anemia, likely of chronic disease--no evidence of active bleeding--s/p 1 unit pRBC with improvement of HGB to 8.1. Hemoglobin is drifted down to 7.6. Patient is asymptomatic, his patient being transitioned to hospice will avoid any unnecessary
transfusion at this stage.
Metastatic colon Ca --end stage--apprec heme input--hospice appropriate
Hyponatremia--likely due to hypovolemia--stop IVF
wound--stage 2 sacral pressure injury (POA)
severe protein calorie malnutrition
DVT Proph- SCDs
Code status--pt has now made himself DNR
Continue supportive care and antibiotics.
Prognosis remains poor and patient remains appropriate for hospice care. Case management working to find appropriate place for hospice care,
Anticipated Discharge: Within 24 hours
Subjective/Interval History
-
Date of Service: January 03, 2025
resting comfortably, no complaints
Objective Data
-
Labs:
Laboratory Results
01/03/25
05:51
WBC 22.1 H
Hgb 7.6 L
Hct 24.1 L
Plt Count 255 D
Sodium 130 L
Potassium 4.2
Chloride 104
Carbon Dioxide 27
BUN 10
Creatinine 0.3 L
Glucose 84
Calcium 10.4 H
Vital Signs:
Vital Signs
Temp Pulse Resp BP Pulse Ox
99.0 F 104 16 103/60 98
01/03/25 15:52 01/03/25 15:52 01/03/25 15:52 01/03/25 15:52 01/03/25 15:52
I&O
01/02/25 01/03/25 01/04/25
06:59 06:59 06:59
Intake Total 1200 / 1200 570 / 570
Output Total 1465 / 1465 1300 / 1300
Balance -265 / -265 -730 / -730
Physical Exam
-
General: No Apparent Distress, Appears Chronically Ill and Cachectic
HEENT: Normocephalic and Atraumatic
Respiratory: Negative Wheezes
Cardiac: Regular Rhythm
GI: Soft
Genito-urinary: No Costovertebral Tender
Skin: Other (Left groin open wound)
Neuro: AO x 3
Psych: Calm
Data Reviewed
-
Total Time Spent with Patient (in minutes): 41
Labs: Labs Reviewed by me
[2025-01-03 23:00] VITALS: BP 93/65
[2025-01-04] MEDS: DILAUDID 0.5 MG IV (04:13)
[2025-01-04 07:50] VITALS: BP 124/80
[2025-01-04] MEDS: AUGMENTIN 875 MG/125 MG 1 TABLET PO ×2 (08:13→19:51)
[2025-01-04] MEDS: ELIQUIS 2.5 MG PO ×2 (08:13→19:51)
--- NOTE | 2025-01-04 09:03 | W.PN.ONC ---
Today's Communication / Plan
-
Again discussed the situation -- no good chemo options remaining, and he's too weak/malnourished to entertain treatment even if options were available. His infection cannot be cured with antibiotics alone, but abx may help reduce symptoms/infection
burden.
Awaiting transfer to inpatient facility for hospice
Oncology will sign off, but please call with any questions
Impression
Impression
metastatic colorectal cancer, with liver mets and intact primary tumor; recent progression on Folfiri, progression on FOLFOX prior to that
left groin abscess
anemia of malignancy/chemotherapy
Plan
Plan
Again discussed the situation -- no good chemo options remaining, and he's too weak/malnourished to entertain treatment even if options were available. His infection cannot be cured with antibiotics alone, but abx may help reduce symptoms/infection
burden.
Awaiting transfer to inpatient facility for hospice
Oncology will sign off, but please call with any questions
Subjective/Objective
Subjective/Objective
eating without difficulty
groin infection not bothersome
on phone w/ patient
Vital Signs:
Vital Signs
Temp Pulse Resp BP Pulse Ox
97.9 F 90 14 124/80 97
01/04/25 07:50 01/04/25 07:50 01/04/25 07:50 01/04/25 07:50 01/04/25 07:50
cachectic, ill-appearing but in no distress
alert and oriented
gauze dressing to left groin
Lab Results:
Laboratory Data
WBC 22.1 10^3/uL (4.8-10.8) H 01/03/25 05:51
Hgb 7.6 g/dL (13.0-18.0) L 01/03/25 05:51
Plt Count 255 10^3/uL (130-400) D 01/03/25 05:51
PT 16.4 Sec (11.4-14.6) H 12/25/24 04:32
INR 1.29 12/25/24 04:32
eGFR > 60.00 01/03/25 05:51
--- NOTE | 2025-01-04 11:17 | W.PN.HOSP.TC ---
Today's Communication/Plan
-
medically stable for dc. await hospice placement in [facility] facility. d/w CM
Assessment / Plan
Assessment / Plan
Assessment:
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
unasyn and now to oral Augmentin through 01/06--- END STAGE METASTATIC COLON CANCER, hospice is the most appropriate treatment/decision--off pressors--apprec CRS/ID/heme input--patient will not qualify for inpatient hospice--hospice team has met with
patient and family, family does not feel that patient could go home due to 's vision issues and they cannot afford hospice at a facility--case management involved staff from [facility] to see if can provide any assistance
Anemia, likely of chronic disease--no evidence of active bleeding--s/p 1 unit pRBC with improvement of HGB to 8.1. Hemoglobin is drifted down to 7.6. Patient is asymptomatic, his patient being transitioned to hospice will avoid any unnecessary
transfusion at this stage.
Metastatic colon Ca --end stage--apprec heme input--hospice appropriate
Hyponatremia--likely due to hypovolemia--stop IVF
wound--stage 2 sacral pressure injury (POA)
severe protein calorie malnutrition
DVT Proph- SCDs
Code status--pt has now made himself DNR
Continue supportive care and antibiotics.
Prognosis remains poor and patient remains appropriate for hospice care. Case management working to find appropriate place for hospice care,
Anticipated Discharge: > 48 hours
Subjective/Interval History
-
Date of Service: January 04, 2025
no new complaints
pain managed
Objective Data
-
Vital Signs:
Vital Signs
Temp Pulse Resp BP Pulse Ox
97.9 F 90 14 124/80 97
01/04/25 07:50 01/04/25 07:50 01/04/25 07:50 01/04/25 07:50 01/04/25 07:50
I&O
01/03/25 01/04/25 01/05/25
06:59 06:59 06:59
Intake Total 570 / 570 660 / 660
Output Total 1300 / 1300 825 / 825 225 / 225
Balance -730 / -730 -165 / -165 -225 / -225
Physical Exam
-
General: Appears Chronically Ill and Cachectic
HEENT: Normocephalic and Atraumatic
Respiratory: Negative Wheezes
Cardiac: Regular Rhythm and S1/S2
GI: Soft
Neuro: AO x 3
Psych: Calm
Data Reviewed
-
Total Time Spent with Patient (in minutes): 41
Labs: Labs Reviewed by me
--- NOTE | 2025-01-04 14:55 | CM ---
reviewed the chart notes and spoke with Alessia Bustosever admissions from [facility] yesterday ([phone]). Clinicals faxed to [facility] for review. Message left for Alessia today regarding review of financial information and possible acceptance. CM
continues to be available to patient/family and is monitoring medical plan for needs at discharge.
Plan: Discharge to assisted living once bed secured. This will be private pay.
[2025-01-04 15:17] VITALS: BP 128/66
[2025-01-04] MEDS: TYLENOL 650 MG PO (16:40)
[2025-01-04 23:45] VITALS: BP 103/60
[2025-01-05] MEDS: DILAUDID 0.5 MG IV ×3 (02:28→21:10)
[2025-01-05 07:36] VITALS: BP 104/65
[2025-01-05] MEDS: ELIQUIS 2.5 MG PO ×2 (07:59→19:48)
[2025-01-05] MEDS: AUGMENTIN 875 MG/125 MG 1 TABLET PO ×2 (07:59→19:48)
--- NOTE | 2025-01-05 11:39 | CM ---
"Spoke to Alessia Poe, admissions from [facility] ([phone]). Patient requires care above what [facility] can provide. Alessia is trying to get patient admitted to [facility] next door for services. Patient wants to be near his "Yessica"who is at [facility]. Patient records have previously been forwarded to [facility] who in turn [facility] supplied them to [facility]. Alessia is waiting for determination from [facility]. Patient wants to hold-off on hospice at this time. Dr. Huerta notified. "
--- NOTE | 2025-01-05 13:03 | W.PN.HOSP.TC ---
Today's Communication/Plan
-
dispo plan has changed from assisted living with hospice to SNF
await dispo
Assessment / Plan
Assessment / Plan
Assessment:
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
unasyn and now to oral Augmentin through 01/06--- END STAGE METASTATIC COLON CANCER, hospice is the most appropriate treatment/decision--off pressors--apprec CRS/ID/heme input--patient will not qualify for inpatient hospice--hospice team has met with
patient and family, family does not feel that patient could go home due to 's vision issues and they cannot afford hospice at a facility--case management involved staff from [facility] to see if can provide any assistance
Anemia, likely of chronic disease--no evidence of active bleeding--s/p 1 unit pRBC with improvement of HGB to 8.1. Hemoglobin is drifted down to 7.6. Patient is asymptomatic, his patient being transitioned to hospice will avoid any unnecessary
transfusion at this stage.
Metastatic colon Ca --end stage--apprec heme input--hospice appropriate
Hyponatremia--likely due to hypovolemia--stop IVF
wound--stage 2 sacral pressure injury (POA)
severe protein calorie malnutrition
DVT Proph- SCDs
Code status--pt has now made himself DNR
Continue supportive care and antibiotics.
Prognosis remains poor and patient remains appropriate for hospice care. Case management notes on 01/05 suggest patient/family now opting for SNF placement and deferring hospice for now
Anticipated Discharge: 24 - 48 hours
Subjective/Interval History
-
Date of Service: January 05, 2025
no new complaints
Objective Data
-
Vital Signs:
Vital Signs
Temp Pulse Resp BP Pulse Ox
98.1 F 98 14 104/65 98
01/05/25 07:36 01/05/25 07:36 01/05/25 07:36 01/05/25 07:36 01/05/25 07:36
I&O
01/04/25 01/05/25 01/06/25
06:59 06:59 06:59
Intake Total 660 / 660
Output Total 825 / 825 425 / 425 150 / 150
Balance -165 / -165 -425 / -425 -150 / -150
Physical Exam
-
General: No Apparent Distress
HEENT: Normocephalic and Atraumatic
Respiratory: Negative Wheezes
Cardiac: Regular Rhythm and S1/S2
GI: Soft and Nontender
Musculoskeletal: No Edema
Neuro: AO x 3
Psych: Calm
Data Reviewed
-
Total Time Spent with Patient (in minutes): 45
Labs: Labs Reviewed by me
--- NOTE | 2025-01-05 15:04 | WOUNDNOTE ---
WOC RN note: Samir Simmons re: recommend an air mattress for patient at SNF. He has a stage 2 sacral pressure injury.
--- NOTE | 2025-01-05 15:06 | CM ---
PATIENT WILL NEED AIR MATTRESS WHEN AT SNF.
[2025-01-05 15:34] VITALS: BP 110/66
[2025-01-05] MEDS: IMODIUM 2 MG PO (15:45)
--- NOTE | 2025-01-05 17:12 | CM ---
Received message from sister Nicole, that [facility] called her and accepted patient. Message from facility was also left for another CM. This CM called [facility] and left a message for admissions. Also called and spoke with Nicole. No
confirmation from [facility] as yet.
[2025-01-05 23:22] VITALS: BP 105/63
[2025-01-06 05:05] LABS: Hematocrit 21.6 % (39.0-52.0); Mean Corp Hgb Conc. 32.4 g/dL (33.0-37.0); Mean Corpuscular Hgb 28.9 pg (27.0-31.0); Mean Corpuscular Volume 89.3 fL (80.0-94.0); Mean Platelet Volume 11.1 fL (7.4-10.4); Platelet Count 278 10^3/uL (130-400); Red Blood Cell Count 2.42 10^6/uL (4.70-6.10); White Blood Cell Count 20.1 10^3/uL (4.8-10.8)
[2025-01-06 05:35] LABS: Blood Urea Nitrogen 9 mg/dl (9-20); Calcium 11.2 mg/dl (8.4-10.2); Carbon Dioxide 29 mmol/L (22-30); Chloride 103 mmol/L (98-107); Estimated Creatinine Clearance 82 ml/min; Glucose 97 mg/dl (70-99); Potassium 4.3 mmol/L (3.5-5.1); Sodium 134 mmol/L (135-145); eGFR > 60.00
[2025-01-06 07:39] VITALS: BP 103/63
[2025-01-06] MEDS: ELIQUIS 2.5 MG PO (07:57)
[2025-01-06] MEDS: AUGMENTIN 875 MG/125 MG 1 TABLET PO ×2 (07:57→15:55)
[2025-01-06] MEDS: IMODIUM 2 MG PO (07:57)
--- NOTE | 2025-01-06 08:50 | W.PN.HOSP.TC ---
Today's Communication/Plan
-
dc to SNF today
Assessment / Plan
Assessment / Plan
Assessment:
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
unasyn and now to oral Augmentin through 01/06--- END STAGE METASTATIC COLON CANCER, hospice is the most appropriate treatment/decision--off pressors--apprec CRS/ID/heme input--patient will not qualify for inpatient hospice--hospice team has met with
patient and family. At present, plan is for SNF.
Anemia, likely of chronic disease--no evidence of active bleeding--s/p 2 unit pRBCs Patient is asymptomatic
Metastatic colon Ca --end stage--apprec heme input--hospice appropriate
Hyponatremia--likely due to hypovolemia--stop IVF
wound--stage 2 sacral pressure injury (POA)
severe protein calorie malnutrition
DVT Proph- SCDs
Code status--pt has now made himself DNR
More than 30 minutes spent in discharge including
Final examination of the patient
Summarizing hospital stay
Instructions for continuing care to all relevant caregivers
Preparation of discharge records, prescriptions, and referral forms
Total time spent (in minutes): 41
Anticipated Discharge: Today
Subjective/Interval History
-
Date of Service: January 06, 2025
resting comfortably, no complaints at present
Objective Data
-
Labs:
Laboratory Results
01/06/25
04:30
WBC 20.1 H
Hgb 7.0 L
Hct 21.6 L
Plt Count 278
Sodium 134 L
Potassium 4.3
Chloride 103
Carbon Dioxide 29
BUN 9
Creatinine 0.4 L
Glucose 97
Calcium 11.2 H
Vital Signs:
Vital Signs
Temp Pulse Resp BP Pulse Ox
98.1 F 102 16 103/63 98
01/06/25 07:39 01/06/25 07:39 01/06/25 07:39 01/06/25 07:39 01/06/25 07:39
I&O
01/05/25 01/06/25 01/07/25
06:59 06:59 06:59
Output Total 425 / 425 675 / 675
Balance -425 / -425 -675 / -675
Physical Exam
-
General: Appears Chronically Ill
HEENT: Normocephalic
Respiratory: Negative Wheezes
Cardiac: Regular Rhythm and S1/S2
GI: Soft and Nontender
Psych: Calm
Data Reviewed
-
Total Time Spent with Patient (in minutes): 41
Labs: Labs Reviewed by me
--- NOTE | 2025-01-06 09:28 | CM ---
Addendum entered by Yamileth King RN 01/06/25 11:44:
Plan: [facility]
Call report to: [phone]; ext [phone]
Fax report to: [phone]
Medical and transport forms on chart.
Original Note:
Reviewed the chart notes and spoke with the patient at the bedside. IMM reviewed. Referral for [facility] sent via [facility]. CM continues to be available to patient/family and is monitoring medical plan for needs at discharge.
Plan: Discharge to [facility] once accepted. Admission will be private pay.
[2025-01-06] MEDS: TYLENOL 650 MG PO (09:54)
[2025-01-06 11:18] VITALS: BP 85/54
[2025-01-06 11:40] VITALS: BP 85/54
[2025-01-06 12:03] VITALS: BP 84/50
--- NOTE | 2025-01-06 14:05 | W.DS.TRANS ---
DC Summary - Managed Care Liaison
-
Discharge Instructions:
Discharge Diagnosis/Procedures septic shock, groin abscess related to bowel
perforation/fistula from end stage colon cancer
Diet Low Residue
Activity As tolerated
Other Services Hospice
Instructions:
Stand-Alone Forms:
Changes to Home Medications: No
Discharge Medications:
DC Medications w/original date entered in [employer]
ascorbic acid (vitamin C) 500 mg tablet (Vitamin C) 500 mg PO DAILY Supplement 04/01/24
cholecalciferol (vitamin D3) 25 mcg (1,000 unit) tablet (Vitamin D3) 25 mcg PO DAILY Supplement 04/01/24
cyanocobalamin (vitamin B-12) 1,000 mcg tablet 1,000 mcg PO DAILY Supplement 04/01/24
magnesium oxide 400 mg PO DAILY Supplement 04/01/24
zinc sulfate 50 mg zinc (220 mg) tablet 50 mg PO DAILY Supplement 04/01/24
apixaban 2.5 mg tablet (Eliquis) 2.5 mg PO BID Blood Clot Prevention/Tx 12/10/24
acetaminophen 325 mg tablet 650 mg (2 x 325 mg) PO Q4HPRN PRN mild pain/SCHRADER/temp> 100.4F #100 tabs 01/06/25
Home Medication Changes
Pending Results: No
Total time spent discharging patient (in min): 41
[2025-01-06 14:51] VITALS: BP 100/57
[2025-01-06 15:37] VITALS: BP 100/57
[2025-01-06] MEDS: DILAUDID 0.5 MG IV (15:55)
== END 2025-01-06 17:05 | DRG 853 ==
LOC: 2 NORTH 20:59
PROVIDERS: Internal Medicine; Registered Nurse; ADMITTING PHYSICIAN Internal Medicine; ATTENDING PHYSICIAN Internal Medicine; CONSULT PHYSICIAN Student in an Organized Health Care Education/Training Program; CONSULT PHYSICIAN Surgery; EMERGENCY PHYSICIAN Emergency Medicine; FAMILY PHYSICIAN Family Medicine; OTHER PHYSICIAN Internal Medicine Hematology & Oncology; PRIMARYCARE PHYSICIAN Family Medicine
PROC: 30233N1 Transfusion of Nonautologous Red Blood Cells into Peripheral Vein, Percutaneous Approach (ICD-10-PCS; 2024-12-25)
PROC: 0Y960ZZ Drainage of Left Inguinal Region, Open Approach (ICD-10-PCS; 2024-12-25)
DX: A41.9 Sepsis, unspecified organism (principal); E43 Unspecified severe protein-calorie malnutrition; R65.21 Severe sepsis with septic shock; L02.214 Cutaneous abscess of groin; E87.1 Hypo-osmolality and hyponatremia; C18.7 Malignant neoplasm of sigmoid colon; C78.7 Secondary malignant neoplasm of liver and intrahepatic bile duct; Z68.1 Body mass index [BMI] 19.9 or less, adult; R64 Cachexia; Z87.891 Personal history of nicotine dependence; R19.09 Other intra-abdominal and pelvic swelling, mass and lump; E86.1 Hypovolemia; L89.152 Pressure ulcer of sacral region, stage 2; Z66 Do not resuscitate
CPT/HCPCS: 72193; 80048; 80053; 82962; 83605; 83735; 85025; 85027; 85610; 86850; 86900; 86901; 86920; 87040; 87070; 87075; 87077; 87205; 96374; 96375; 99285; P9016; Q9967